=== PATIENT | female | born 1980 | race Hispanic/Latino ===

== ENCOUNTER 2017-02-08 20:40 | Emergency (ER) | payer SELFPAY ==
[2017-02-09] MEDS ORDERED: LIDOCAINE VISCOUS 2% PO ONE (00:28)
--- NOTE | 2017-02-09 00:32 | Emergency Department Report ---
HPI - General Chief Complaint: Sore Throat Time Seen by Provider: 02/08/17 22:37 - HPI HPI: 37-year-old female presents today with sore throat, right ear pain, productive cough with green mucus 3 days. Denies sick contacts. He tried albuterol and Benadryl without relief. Denies fever, chills, nausea, vomiting, chest pain, shortness of breath, abdominal pain. Patient has past medical history of asthma and bronchitis. ED Past Medical Hx - Past Medical History Hx Seizures: Yes Hx Asthma: Yes Additional medical history: Pancreatitis, cyst on right ovary, Vaginal delivery x 2 - Surgical History Additional Surgical History: tubaligation - Social History Smoking Status: Current Every Day Smoker Substance Use Type: None - Medications Home Medications: Home Medications Medication Instructions Recorded Confirmed Last Taken Type Gabapentin [Neurontin] 800 mg PO Q8H 05/04/15 09/05/15 05/04/15 History predniSONE [Deltasone] 20 mg PO QDAY #5 tab 09/05/15 Unknown Rx ALBUTEROL Inhaler [ProAir HFA 2 puff IH QID PRN #1 inha 02/09/17 Unknown Rx Inhaler] Azithromycin [Zithromax TAB] 500 mg PO QDAY #5 tablet 02/09/17 Unknown Rx Lidocaine Viscous 2% 15 ml MM TID #100 ml 02/09/17 Unknown Rx Promethazine /Codeine 5 ml PO Q6H PRN #120 ml 02/09/17 Unknown Rx [Phenergan/Codeine 6.25-10 mg/5 ml] ED Review of Systems ROS: Stated complaint: SORE THROAT /FLU SYMPTOMS Other details as noted in HPI Constitutional: denies: chills, fever, malaise Eyes: denies: eye pain ENT: ear pain, throat pain, congestion Respiratory: cough. denies: shortness of breath, wheezing Cardiovascular: denies: chest pain, palpitations Endocrine: no symptoms reported Gastrointestinal: denies: abdominal pain, nausea, vomiting Neurological: denies: headache, weakness, numbness, paresthesias Physical Exam - Physical Exam Vital Signs: Vital Signs 02/08/17 21:02 Temperature 98.6 F Pulse Rate 98 H Respiratory 18 Rate Blood Pressure 131/88 O2 Sat by Pulse 98 Oximetry Physical Exam: GENERAL: The patient is well-developed and well-nourished. Patient is in NAD. HEAD: Normocephalic. Atraumatic. EYES: PERRL. EARS: External auditory canals and tympanic membranes clear; hearing grossly intact. NOSE: Normal nasal mucosa with no nasal discharge. THROAT: Positive for erythema and tonsillomegaly. No tonsillar exudates noted. NECK: Positive for right-sided anterior cervical lymphadenopathy. CHEST/LUNGS: Clear to auscultation throughout. HEART/CARDIOVASCULAR: Regular rate and rhythm. No murmurs, rubs or gallops. ABDOMEN: Abdomen is soft, nontender. Bowel sounds normoactive. No guarding or rebound tenderness. EXTREMITIES: Peripheral pulses intact. Capillary refill less than 2 seconds. NEURO: Alert and oriented x 3. Normal gait. ED Course Vital Signs 02/08/17 21:02 Temperature 98.6 F Pulse Rate 98 H Respiratory 18 Rate Blood Pressure 131/88 O2 Sat by Pulse 98 Oximetry ED Medical Decision Making - Lab Data Vital Signs 02/08/17 21:02 Temperature 98.6 F Pulse Rate 98 H Respiratory 18 Rate Blood Pressure 131/88 O2 Sat by Pulse 98 Oximetry - Medical Decision Making 37-year-old female presents today with sore throat, productive cough 3 days. Her rapid strep test is negative. Patient is in no acute distress at this time. She will be discharged home and is encouraged to follow up with a primary care provider. She will be sent home on Z-Isaiah, promethazine/codeine, albuterol inhaler, viscous lidocaine and is encouraged to return to the emergency room for any worsening symptoms. Critical care attestation.: If time is entered above; I have spent that time in minutes in the direct care of this critically ill patient, excluding procedure time. ED Disposition Clinical Impression: Bronchitis Pharyngitis Qualifiers: Pharyngitis/tonsillitis etiology: unspecified etiology Qualified Code(s): J02.9 - Acute pharyngitis, unspecified Disposition: DISCHARGED TO HOME OR SELFCARE Is pt being admited?: No Does the pt Need Aspirin: No Condition: Stable Instructions: Acute Bronchitis (ED), Pharyngitis (ED) Additional Instructions: Follow-up with primary care provider. Return to the emergency department if symptoms worsen. Prescriptions: ALBUTEROL Inhaler [ProAir HFA Inhaler] 2 puff IH QID PRN #1 inha PRN Reason: Shortness Of Breath Azithromycin [Zithromax TAB] 500 mg PO QDAY #5 tablet Lidocaine Viscous 2% 15 ml MM TID #100 ml Promethazine /Codeine [Phenergan/Codeine 6.25-10 mg/5 ml] 5 ml PO Q6H PRN #120 ml PRN Reason: cough Referrals: PRIMARY CARE, [Primary Care Provider] - 3-5 Days [facility] [Outside] - 3-5 Days Forms: Work/School Release Form(ED), Accompanied Note Time of Disposition: 00:31
[2017-02-09 01:33] VITALS: BP 151/89
== END 2017-02-09 01:20 | disposition home or self-care (01) ==
LOC: ED 20:40
DX: J02.9 Acute pharyngitis, unspecified (principal); J40 Bronchitis, not specified as acute or chronic; J45.909 Unspecified asthma, uncomplicated; F17.200 Nicotine dependence, unspecified, uncomplicated
CPT/HCPCS: 87116; 87430; 99282

== ENCOUNTER 2017-03-09 23:57 | Emergency (ER) | payer SELFPAY ==
[2017-03-10 00:18] VITALS: BP 139/90
[2017-03-10] MEDS ORDERED: XYLOCAINE 1% MPF 5 mL INFILTRATI ONE (01:51)
[2017-03-10] MEDS ORDERED: NORCO 5/325 PO ONE (01:51)
[2017-03-10] MEDS ORDERED: ROCEPHIN IM ONE (01:51)
[2017-03-10] MEDS ORDERED: DECADRON IM ONE (01:51)
--- NOTE | 2017-03-10 02:28 | Emergency Department Report ---
ED ENT HPI - General Chief complaint: Sore Throat Stated complaint: SORE THROAT, VOMITING,DIARRHEA Time Seen by Provider: 03/10/17 01:43 Source: patient Mode of arrival: Ambulatory Limitations: No Limitations - History of Present Illness Initial comments: Patient comes into the ER today with complaints of throat pain for the past month. Patient states that she was seen here at the end of last month and was prescribed some Zithromax. Patient states she might have had one to 2 days of improvements but has not been any better since. Patient denies any fever, chills, body aches. Patient states that most the pain is on the left side of her throat and it is causing her ear and side of head to hurt now. MD complaint: sore throat - Related Data Home Medications Medication Instructions Recorded Confirmed Last Taken Gabapentin [Neurontin] 800 mg PO Q8H 05/04/15 03/10/17 1 Day Ago Previous Rx's Medication Instructions Recorded Last Taken Type Amoxicillin 1,000 mg PO BID #40 capsule 03/10/17 Unknown Rx traMADol [Ultram 50 MG tab] 50 mg PO Q4HR PRN #30 tablet 03/10/17 Unknown Rx Allergies Allergy/AdvReac Type Severity Reaction Status Date / Time ketorolac tromethamine Allergy Rash Verified 09/05/15 13:30 [From Toradol] ED Dental HPI - General Chief complaint: Sore Throat Stated complaint: SORE THROAT, VOMITING,DIARRHEA Time Seen by Provider: 03/10/17 01:43 Source: patient Mode of arrival: Ambulatory Limitations: No Limitations - Related Data Home Medications Medication Instructions Recorded Confirmed Last Taken Gabapentin [Neurontin] 800 mg PO Q8H 05/04/15 03/10/17 1 Day Ago Previous Rx's Medication Instructions Recorded Last Taken Type Amoxicillin 1,000 mg PO BID #40 capsule 03/10/17 Unknown Rx traMADol [Ultram 50 MG tab] 50 mg PO Q4HR PRN #30 tablet 03/10/17 Unknown Rx Allergies Allergy/AdvReac Type Severity Reaction Status Date / Time ketorolac tromethamine Allergy Rash Verified 09/05/15 13:30 [From Toradol] ED Review of Systems ROS: Stated complaint: SORE THROAT, VOMITING,DIARRHEA Other details as noted in HPI Constitutional: denies: chills, fever Eyes: denies: eye pain, eye discharge, vision change ENT: ear pain, throat pain, congestion. denies: dental pain Respiratory: denies: cough, shortness of breath, wheezing Cardiovascular: denies: chest pain, palpitations Endocrine: no symptoms reported Gastrointestinal: denies: abdominal pain, nausea, diarrhea Genitourinary: denies: urgency, dysuria, discharge Musculoskeletal: denies: back pain, joint swelling, arthralgia Skin: denies: rash, lesions Neurological: denies: headache, weakness, paresthesias Psychiatric: denies: anxiety, depression Hematological/Lymphatic: denies: easy bleeding, easy bruising ED Past Medical Hx - Past Medical History Hx Seizures: Yes Hx Asthma: Yes Additional medical history: Pancreatitis, cyst on right ovary, Vaginal delivery x 2 - Surgical History Additional Surgical History: tubaligation - Social History Smoking Status: Current Every Day Smoker Substance Use Type: None - Medications Home Medications: Home Medications Medication Instructions Recorded Confirmed Last Taken Type Gabapentin [Neurontin] 800 mg PO Q8H 05/04/15 03/10/17 1 Day Ago History Amoxicillin 1,000 mg PO BID #40 capsule 03/10/17 Unknown Rx traMADol [Ultram 50 MG tab] 50 mg PO Q4HR PRN #30 tablet 03/10/17 Unknown Rx ED Physical Exam - General Limitations: No Limitations General appearance: alert, in no apparent distress - Head Head exam: Present: atraumatic, normocephalic - Eye Eye exam: Present: normal appearance, PERRL - ENT ENT exam: Present: mucous membranes dry, mucous membranes moist, TM's normal bilaterally, normal external ear exam, other (mildly swollen left tonsil with minimal bilateral tonsillar erythematous. Definitely no visible abscess appreciated. Bilateral nasal mucosal swelling and redness. Left maxillary sinus tenderness on percussion.) - Neck Neck exam: Present: normal inspection - Respiratory Respiratory exam: Present: normal lung sounds bilaterally. Absent: respiratory distress - Cardiovascular Cardiovascular Exam: Present: regular rate, normal rhythm. Absent: systolic murmur, diastolic murmur, rubs, gallop - GI/Abdominal GI/Abdominal exam: Present: soft, normal bowel sounds - Extremities Exam Extremities exam: Present: normal inspection - Back Exam Back exam: Present: normal inspection - Neurological Exam Neurological exam: Present: alert, oriented X3 - Psychiatric Psychiatric exam: Present: normal affect, normal mood - Skin Skin exam: Present: warm, dry, intact, normal color. Absent: rash ED Course Vital Signs 03/10/17 00:05 Temperature 98.5 F Pulse Rate 102 H Respiratory 20 Rate Blood Pressure 139/90 O2 Sat by Pulse 98 Oximetry ED Medical Decision Making - Medical Decision Making Patient is nontoxic and hemodynamically stable. Previous records reviewed prior to examination of patient. I informed patient that she does not have any drainable abscess noted on exam. I suspect that may be her lack of improvement is secondary to antibiotic resistance. Patient was given intramuscular Rocephin 1 g and Decadron 10 mg here in the ER. I will discharge patient on penicillin based antibiotics and refer her to ENT if symptoms don't resolve or worsen. Patient is stable for discharge and is agreement with treatment plan. Critical care attestation.: If time is entered above; I have spent that time in minutes in the direct care of this critically ill patient, excluding procedure time. ED Disposition Clinical Impression: Pharyngitis, Sinusitis Disposition: DISCHARGED TO HOME OR SELFCARE Is pt being admited?: No Does the pt Need Aspirin: No Condition: Stable Instructions: Tonsillitis (ED), Sinusitis (ED) Prescriptions: Amoxicillin 1,000 mg PO BID #40 capsule traMADol [Ultram 50 MG tab] 50 mg PO Q4HR PRN #30 tablet PRN Reason: Pain Referrals: PRIMARY CARE, [Primary Care Provider] - 3-5 Days JARED THORNTON MD [Staff Physician] - 3-5 Days Time of Disposition: 02:30
== END 2017-03-10 02:42 | disposition home or self-care (01) ==
LOC: ED 23:57
DX: J02.9 Acute pharyngitis, unspecified (principal); J32.9 Chronic sinusitis, unspecified; R56.9 Unspecified convulsions; J45.909 Unspecified asthma, uncomplicated; F17.200 Nicotine dependence, unspecified, uncomplicated; Z98.51 Tubal ligation status; Z88.6 Allergy status to analgesic agent
CPT/HCPCS: 96372; 99282; J0696; J1100

== ENCOUNTER 2017-05-07 21:09 | Emergency (ER) | payer SELFPAY ==
[2017-05-07 21:31] VITALS: BP 151/97
== END 2017-05-08 00:35 | disposition left against medical advice (07) ==
LOC: ED 21:09
DX: K04.7 Periapical abscess without sinus (principal); Z53.21 Procedure and treatment not carried out due to patient leaving prior to being seen by health care provider

== ENCOUNTER 2017-05-08 12:35 | Emergency (ER) | payer SELFPAY ==
[2017-05-08 13:12] VITALS: BP 129/91
[2017-05-08] MEDS ORDERED: CLEOCIN PO ONE (14:43)
[2017-05-08] MEDS ORDERED: NORCO 7.5/325 PO ONE (14:43)
[2017-05-08] MEDS ORDERED: TRIMOX PO ONE (14:44)
--- NOTE | 2017-05-08 15:48 | Emergency Department Report ---
HPI - General Chief Complaint: Dental/Oral Time Seen by Provider: 05/08/17 14:14 - HPI HPI: The patient is a 37-year-old female presents for evaluation of tooth and mouth pain. The patient reports recurrence of right lower tooth and mouth pain for the past 3 days, constant since onset, 10/10 in severity, throbbing quality, exacerbated with chewing. She states that she has experienced similar symptoms multiple times in the past 2-3 years secondary to tooth infections. She admits to long-standing history of dental caries, poor dentition, and needing a tooth pulled. She has not seen a dentist despite this occur multiple times. She denies trauma or injury to the head, headache, throat pain, neck pain or stiffness, difficulty swallowing, dysphagia, hoarseness of voice, stridor, dyspnea. ED Past Medical Hx - Past Medical History Previous Medical History?: Yes Hx Seizures: Yes Hx Asthma: Yes Additional medical history: Pancreatitis, cyst on right ovary, Vaginal delivery x 2 - Surgical History Past Surgical History?: Yes Additional Surgical History: tubaligation - Social History Smoking Status: Current Every Day Smoker Substance Use Type: Alcohol, Non Opiate Pain, Other - Medications Home Medications: Home Medications Medication Instructions Recorded Confirmed Last Taken Type Gabapentin [Neurontin] 800 mg PO Q8H 05/04/15 03/10/17 1 Day Ago History Amoxicillin 1,000 mg PO BID #40 capsule 03/10/17 Unknown Rx traMADol [Ultram 50 MG tab] 50 mg PO Q4HR PRN #30 tablet 03/10/17 Unknown Rx Amoxicillin/K Clav Tab [Augmentin 1 tab PO Q12HR #20 tab 05/08/17 Unknown Rx 875 mg] Chlorhexidine Mouthwash [Peridex] 15 ml MM BID #1 bottle 05/08/17 Unknown Rx Clindamycin [Clindamycin CAP] 300 mg PO TID #40 capsule 05/08/17 Unknown Rx HYDROcodone/APAP 7.5-325 [[place] 1 each PO Q8HR PRN #14 tablet 05/08/17 Unknown Rx 7.5/325] ED Review of Systems ROS: Stated complaint: MOUTH PAIN Other details as noted in HPI Constitutional: denies: fever ENT: denies: throat or neck pain Respiratory: denies: cough, shortness of breath Cardiovascular: denies: chest pain Endocrine: denies unexplained weight loss or gain Gastrointestinal: denies: abdominal pain, nausea Genitourinary: denies: dysuria Musculoskeletal: denies: leg swelling Skin: denies: rash Neurological: denies: headache Hematological/Lymphatic: denies: easy bleeding or easy bruising Psych: denies sadness or hopelessness Physical Exam - Physical Exam Vital Signs: Vital Signs 05/08/17 13:07 Temperature 98.6 F Pulse Rate 115 H Respiratory 22 Rate Blood Pressure 129/91 O2 Sat by Pulse 100 Oximetry Physical Exam: General: well-nourished, well-developed, no acute distress Head: Normocephalic, atraumatic Eyes: normal sclera HEENT: no facial swelling at this time, dental caries present throughout the mouth, gingival erythema present adjacent to right lower premolar, no fluctuance or abscess at this time, mucous membranes pale and dry Neck: trachea midline, neck supple, No neck stiffness, no cervical adenopathy Respiratory: Breath sounds equal bilaterally, no wheezing, rales, or rhonchi Cardio: S1 and S2 present, no murmurs, rubs, gallops, capillary refill is delayed Abdomen: Normoactive bowel sounds, soft abdomen, no rigidity, no guarding or rebound tenderness Chest WALL/Back: No tenderness to palpation of the chest wall, no CVA tenderness with percussion Musc: No pitting edema Skin: No rash Neuro: no facial drooping, normal speech Psych: Normal affect ED Course Vital Signs 05/08/17 13:07 Temperature 98.6 F Pulse Rate 115 H Respiratory 22 Rate Blood Pressure 129/91 O2 Sat by Pulse 100 Oximetry ED Medical Decision Making - Medical Decision Making Exam findings are consistent with acute gingival infection, no pocket of drainable dental abscess appreciable at this time. Exam findings consistent with dehydration and likely cause of tachycardia. Patient declines IV fluids for treatment of her dehydration. The patient is given by mouth [place] for pain and amoxicillin and clindamycin for treatment of gingival infection. The patient was reevaluated and reported that their symptoms were markedly improved. The patient is stable for discharge with outpatient follow-up. The patient is given follow-up and return instructions, including to follow with a dentist and oral maxillofacial surgery within the next 48 hours. The patient expressed understanding and agreed with the plan. The patient is discharged in stable condition. Critical care attestation.: If time is entered above; I have spent that time in minutes in the direct care of this critically ill patient, excluding procedure time. ED Disposition Clinical Impression: Cellulitis of gingiva, Dental caries, Tooth pain, Dehydration Disposition: TO HOME OR SELFCARE Is pt being admited?: No Does the pt Need Aspirin: No Condition: Stable Instructions: Cellulitis (ED), Toothache (ED), Dental Caries (ED) Prescriptions: Amoxicillin/K Clav Tab [Augmentin 875 mg] 1 tab PO Q12HR #20 tab Chlorhexidine Mouthwash [Peridex] 15 ml MM BID #1 bottle Clindamycin [Clindamycin CAP] 300 mg PO TID #40 capsule HYDROcodone/APAP 7.5-325 [[place] 7.5/325] 1 each PO Q8HR PRN #14 tablet PRN Reason: Pain Referrals: [facility] [Referring] - 3-5 Days WILMER AKERS DDS [Staff Physician] - 3-5 Days [facility] [Outside] - 3-5 Days [facility] [Outside] - 3-5 Days Time of Disposition: 15:45
== END 2017-05-08 16:01 | disposition home or self-care (01) ==
LOC: ED 12:35
DX: K12.2 Cellulitis and abscess of mouth (principal); K02.9 Dental caries, unspecified; E86.0 Dehydration; J45.909 Unspecified asthma, uncomplicated; F17.210 Nicotine dependence, cigarettes, uncomplicated
CPT/HCPCS: 99282

== ENCOUNTER 2017-06-04 07:50 | Emergency (ER) | payer OTHER ==
[2017-06-04 07:57] VITALS: BP 130/88
[2017-06-04] MEDS ORDERED: PERCOCET 5/325 PO ONE (08:18)
--- NOTE | 2017-06-04 08:18 | Emergency Department Report ---
ED General Adult HPI - General Chief complaint: Back Pain/Injury Stated complaint: BACK/LEFT FOOT PAIN Time Seen by Provider: 06/04/17 08:02 Source: patient, family Mode of arrival: Ambulatory Limitations: No Limitations - History of Present Illness Initial comments: Patient here complaining of back pain and left foot and ankle pain after he lifted then heavy refrigerator and dropped the refrigerator. She says she twisted her left ankle and now with swollen and pain to back and ankle is 9 out of 10 and aching. Denies any loss of bowel or bladder function, denies any nausea or vomiting. Denies any numbness certainly to extremities. Denies falling or denies any blunt object falling on her. She took Tylenol at home but it didn't help. It is worse with movement better with rest. MD Complaint: back and foot pain Onset/Timin -: days(s) Location: back, left, lower extremity Radiation: non-radiation Severity scale (0 -10): 9 Quality: aching Consistency: constant Improves with: immobilization, rest Worsens with: immobilization, movement Associated Symptoms: denies: confusion, chest pain, cough, diaphoresis, fever/ chills, headaches, loss of appetite, malaise, nausea/vomiting, rash, seizure, shortness of breath, syncope, weakness Treatments Prior to Arrival: other (tylenol) - Related Data Home Medications Medication Instructions Recorded Confirmed Last Taken Gabapentin [Neurontin] 800 mg PO Q8H 05/04/15 03/10/17 1 Day Ago Previous Rx's Medication Instructions Recorded Last Taken Type Amoxicillin 1,000 mg PO BID #40 capsule 03/10/17 Unknown Rx traMADol [Ultram 50 MG tab] 50 mg PO Q4HR PRN #30 tablet 03/10/17 Unknown Rx Amoxicillin/K Clav Tab [Augmentin 1 tab PO Q12HR #20 tab 05/08/17 Unknown Rx 875 mg] Chlorhexidine Mouthwash [Peridex] 15 ml MM BID #1 bottle 05/08/17 Unknown Rx Clindamycin [Clindamycin CAP] 300 mg PO TID #40 capsule 05/08/17 Unknown Rx HYDROcodone/APAP 7.5-325 [[place] 1 each PO Q8HR PRN #14 tablet 05/08/17 Unknown Rx 7.5/325] Acetaminophen/Codeine [Tylenol 1 tab PO Q6H PRN #12 tab 08/15/17 Unknown Rx /Codeine # 3 tab] Cyclobenzaprine [Flexeril] 10 mg PO TID PRN #15 tablet 06/04/17 Unknown Rx Allergies Allergy/AdvReac Type Severity Reaction Status Date / Time ketorolac tromethamine Allergy Rash Verified 09/05/15 13:30 [From Toradol] ED Review of Systems ROS: Stated complaint: BACK/LEFT FOOT PAIN Other details as noted in HPI Comment: All other systems reviewed and negative Constitutional: denies: chills, fever Eyes: denies: vision change Respiratory: no symptoms reported Cardiovascular: denies: chest pain, palpitations, edema, syncope Gastrointestinal: denies: abdominal pain, nausea, vomiting, diarrhea, constipation Genitourinary: denies: urgency, dysuria, frequency, hematuria, discharge Musculoskeletal: back pain, joint swelling, arthralgia. denies: myalgia Skin: denies: rash Neurological: abnormal gait (due to left foot pain and swelling). denies: headache, weakness, numbness, paresthesias, confusion ED Past Medical Hx - Past Medical History Previous Medical History?: Yes Hx Seizures: Yes Hx Asthma: Yes Additional medical history: Pancreatitis, cyst on right ovary, Vaginal delivery x 2 - Surgical History Past Surgical History?: Yes Additional Surgical History: tubaligation - Family History Family history: hypertension - Social History Smoking Status: Current Every Day Smoker Substance Use Type: Alcohol, Non Opiate Pain Other Social History: Patient is - Medications Home Medications: Home Medications Medication Instructions Recorded Confirmed Last Taken Type Gabapentin [Neurontin] 800 mg PO Q8H 05/04/15 03/10/17 1 Day Ago History Amoxicillin 1,000 mg PO BID #40 capsule 03/10/17 Unknown Rx traMADol [Ultram 50 MG tab] 50 mg PO Q4HR PRN #30 tablet 03/10/17 Unknown Rx Amoxicillin/K Clav Tab [Augmentin 1 tab PO Q12HR #20 tab 05/08/17 Unknown Rx 875 mg] Chlorhexidine Mouthwash [Peridex] 15 ml MM BID #1 bottle 05/08/17 Unknown Rx Clindamycin [Clindamycin CAP] 300 mg PO TID #40 capsule 05/08/17 Unknown Rx HYDROcodone/APAP 7.5-325 [[place] 1 each PO Q8HR PRN #14 tablet 05/08/17 Unknown Rx 7.5/325] Acetaminophen/Codeine [Tylenol 1 tab PO Q6H PRN #12 tab 06/04/17 Unknown Rx /Codeine # 3 tab] Cyclobenzaprine [Flexeril] 10 mg PO TID PRN #15 tablet 06/04/17 Unknown Rx ED Physical Exam - General Limitations: No Limitations General appearance: alert, in no apparent distress - Head Head exam: Present: atraumatic, normocephalic, normal inspection - Eye Eye exam: Present: normal appearance, PERRL, EOMI. Absent: nystagmus, periorbital swelling, periorbital tenderness Pupils: Present: normal accommodation - ENT ENT exam: Present: normal exam, normal orophraynx, mucous membranes moist - Neck Neck exam: Present: normal inspection, full ROM. Absent: tenderness, meningismus, lymphadenopathy - Expanded Neck Exam Expanded Neck exam: Absent: tenderness, midline deformity, anterior neck swelling, tracheal deviation - Respiratory Respiratory exam: Present: normal lung sounds bilaterally. Absent: respiratory distress, chest wall tenderness - Cardiovascular Cardiovascular Exam: Present: regular rate, normal rhythm, normal heart sounds - GI/Abdominal GI/Abdominal exam: Present: soft, normal bowel sounds. Absent: distended, tenderness, guarding, rebound, rigid - Extremities Exam Extremities exam: Present: tenderness, normal capillary refill, joint swelling, other (other lower extremity without any clubbing or cyanosis. Left ankle swollen and painful with movement. +2 pedal pulses. No neurovascular compromise bilaterally). Absent: pedal edema, calf tenderness - Expanded Lower Extremity Exam Left Hip exam: Present: normal inspection, full ROM. Absent: tenderness, swelling, abrasion, laceration, ecchymosis, deformity, crepidus, dislocation, erythema, external rotation, internal rotation, shortening, pelvic stability Upper Leg exam: Present: normal inspection, full ROM. Absent: tenderness, swelling, abrasion, laceration, ecchymosis, deformity, crepidus, dislocation, erythema Knee exam: Present: normal inspection, full ROM, full knee extension. Absent: tenderness, swelling, abrasion, laceration, ecchymosis, deformity, crepidus, dislocation, erythema, effusion, pain w/ pronation/supination, posterior draw sign Lower Leg exam: Present: normal inspection, full ROM. Absent: tenderness, swelling, abrasion, laceration, ecchymosis, deformity, crepidus, dislocation, erythema, palpable cord, Elise's sign Ankle exam: Present: normal inspection (left ankle swollen and tender to palpate ). Absent: tenderness, swelling, abrasion, laceration, ecchymosis, deformity, crepidus, dislocation, erythema Foot/Toe exam: Present: full ROM (Full ROM Pt able to plantar llex/plantar flex with minimal pain. ), tenderness (Tenderness to left lateral foot), swelling ( swelling to left lateral foot). Absent: normal inspection, abrasion, laceration , ecchymosis, deformity, crepidus, dislocation, erythema, amputation, puncture wound, foreign body, calcaneal tenderness, tenderness at base of 5th metatarsal , nail avulsion, subungual hematoma Neuro vascular tendon exam: Present: no vascular compromise. Absent: pulse deficit, abnormal cap refill, motor deficit, sensory deficit, tendon deficit, extremity cold to touch, pallor, abnormal 2-point discrimination, decreased fine /light touch, foot drop, peroneal nerve deficit, significant pain with passive ROM of distal joint Gait: Positive: observed and limited by pain - Back Exam Back exam: Present: normal inspection, full ROM, tenderness (T and L-spine), vertebral tenderness (positive for febrile tenderness to T-spine and L-spine.). Absent: CVA tenderness (L), muscle spasm, paraspinal tenderness, rash noted - Expanded Back Exam Expanded Back exam: Absent: saddle anesthesia Back exam: Negative Straight Leg Raising: Left, Right - Neurological Exam Neurological exam: Present: alert, oriented X3, abnormal gait (the left lower extremity due to injury), reflexes normal - Expanded Neurological Exam Expanded Neurological exam: Absent: innattentive, memory loss-remote event, memory loss- recent event, ataxia, receptive aphasia, expressive aphasia, total aphasia, tremor, protecting the airway Patient oriented to: Present: person, place, time Speech: Present: fluid speech Cranial nerves: EOM's Intact: Normal, Gag Reflex: Normal, Tongue Deviation: Normal, Nystagmus: Normal, Facial Sensation: Normal Cerebellar function: Romberg: Normal Upper motor neuron: Pronator Drift: Normal, Sensory Extinction: Normal Sensory exam: Upper Extremity Light Touch: Normal, Upper Extremity Temperature: Normal, UE 2 Point Discrimination: Normal, Lower Extremity Light Touch: Normal, Lower Extremity Temperature: Normal, LE 2 Point Discrimination: Normal Motor strength exam: RUE: 5, LUE: 5, RLE: 5, LLE: 5 DTR: bicep (R): 2+, bicep (L): 2+, tricep (R): 2+, tricep (L): 2+, knee (R): 2+ , knee (L): 2+, ankle (R): 2+, ankle (L): 2+ Best Eye Response ([place]): (4) open spontaneously Best Motor Response (Khadar): (6) obeys commands Best Verbal Response (Khadar): (5) oriented Khadar Total: 15 - Psychiatric Psychiatric exam: Present: normal affect, normal mood - Skin Skin exam: Present: warm, dry, intact, normal color. Absent: rash ED Course Vital Signs 06/04/17 06/04/17 07:53 09:32 Temperature 97.9 F Pulse Rate 103 H Respiratory 16 20 Rate Blood Pressure 130/88 O2 Sat by Pulse 99 Oximetry - Reevaluation(s) Reevaluation #1: 06/04/17 11:47 Given Percocet 5/325 mg po in ed with relief of pain 06/04/17 11:47 - Orthopedic Splinting/Casting Injury #1 Side: left Lower Extremity Injury Location: foot Lower Extremity Immobilizer: Keith wrap Additional Comments: Neurovascular intact ED Medical Decision Making - Radiology Data Radiology results: report reviewed Aray lumbar and thoracic spine with normal studies Xray Left foot with soft tissue swelling no FX or dislocation - Medical Decision Making ED course:Pt here complaining of lower back pain and left foot pain after trying to lifting heavy refrigerator dropped. X-ray of the foot revealed soft tissue swelling but no fracture or dislocation x-ray of the thoracic and lumbar spine revealed no abnormality. Given Percocet 5/325 2 tablets emergency room for pain which relieved her pain. I discussed the patient x-ray findings, diagnosis and treatment plan and she voiced understanding. Discharged home with her family no acute distress. Diagnostics: See radiology section for x-ray report. Assessment/plan 1. Left foot sprain 2. Lower back pain 3. Back muscle strain 4. Arthralgia left foot PT discharged home with Keith wrap to left foot and instructed to rest, ice, compress and elevate affected area for 72 hours and to follow-up with orthopedic doctor as instructed. Prescription given for Tylenol No. 3 and Flexeril. Discharged home in stable condition with her family members Critical care attestation.: If time is entered above; I have spent that time in minutes in the direct care of this critically ill patient, excluding procedure time. ED Disposition Clinical Impression: Arthralgia of left foot, Thoracolumbar back pain Sprain of left foot Qualifiers: Encounter type: initial encounter Qualified Code(s): S93.602A - Unspecified sprain of left foot, initial encounter Back strain Qualifiers: Encounter type: initial encounter Qualified Code(s): S39.012A - Strain of muscle, fascia and tendon of lower back, initial encounter Disposition: TO HOME OR SELFCARE Is pt being admited?: No Does the pt Need Aspirin: No Condition: Stable Instructions: Muscle Strain (ED), Arthralgia (ED), Back Pain (ED), RICE Therapy (ED) Additional Instructions: Follow up with orthopedic doctor in [address] or operate heavy machinary while taking tylenol # 3 and flexeril Rest, Ice, Compress and elevate affected area Prescriptions: Acetaminophen/Codeine [Tylenol /Codeine # 3 tab] 1 tab PO Q6H PRN #12 tab PRN Reason: Pain Cyclobenzaprine [Flexeril] 10 mg PO TID PRN #15 tablet PRN Reason: Muscle Spasm Referrals: MAMADOU ADAMS MD [Staff Physician] - 2-3 Days PRIMARY CARE, [Primary Care Provider] - 2-3 Days Forms: Work/School Release Form(ED)
--- NOTE | 2017-06-04 09:47 | XRay Report ---
LEFT FOOT, 3 views: History: Left foot pain and swelling. The bony architecture is intact. Bony alignment is normal. The joint spaces appear preserved. There is mild nonspecific soft tissue swelling of the distal foot. IMPRESSION: Mild soft tissue swelling. No acute osseous injury identified.
--- NOTE | 2017-06-04 09:47 | XRay Report ---
LUMBOSACRAL SPINE, 3 VIEWS: History: Back pain, injury Findings: The vertebral bodies, disk spaces and posterior elements are intact. No compression deformity or malalignment. The SI joints are symmetric and unremarkable. Impression: 1. No evidence for acute injury to the lumbar spine.
--- NOTE | 2017-06-04 09:48 | XRay Report ---
THORACIC SPINE: History: Back pain, injury. The bones are normally mineralized with well preserved vertebral height, alignment and interspace distances. No paraspinal soft tissue widening is noted. IMPRESSION: Normal study.
== END 2017-06-04 12:10 | disposition home or self-care (01) ==
LOC: ED 07:50
DX: S93.602A Unspecified sprain of left foot, initial encounter (principal); S39.012A Strain of muscle, fascia and tendon of lower back, initial encounter; M54.5 Low back pain; J45.909 Unspecified asthma, uncomplicated; R56.9 Unspecified convulsions; F17.200 Nicotine dependence, unspecified, uncomplicated; W31.89XA Contact with other specified machinery, initial encounter; Y93.89 Activity, other specified; Y99.8 Other external cause status; Y92.89 Other specified places as the place of occurrence of the external cause; Z88.8 Allergy status to other drugs, medicaments and biological substances
CPT/HCPCS: 72072; 72100; 99283

== ENCOUNTER 2018-12-31 06:14 | Emergency (ER) | payer SELFPAY ==
[2018-12-31 06:20] VITALS: BP 114/75
[2018-12-31 06:52] LABS: Basophils % (Auto) 0.2 % (0.0-1.8); Eosinophils # (Auto) 0.3 K/mm3 (0.0-0.4); Hematocrit 43.1 % (30.3-42.9); Hemoglobin 14.6 gm/dl (10.1-14.3); Lymphocytes # (Auto) 2.5 K/mm3 (1.2-5.4); Lymphocytes % (Auto) 18.5 % (13.4-35.0); Mean Corpuscular HGB Conc 34 % (30-34); Mean Corpuscular Volume 97 fl (79-97); Monocytes # (Auto) 0.8 K/mm3 (0.0-0.8); Monocytes % (Auto) 6.3 % (0.0-7.3); Platelet Count 220 K/mm3 (140-440); Red Blood Count 4.45 M/mm3 (3.65-5.03); Red Cell Distribution Width 13.9 % (13.2-15.2)
[2018-12-31 07:02] LABS: BUN/Creatinine Ratio 21; Blood Urea Nitrogen 15 mg/dL (7-17); Calcium 9.1 mg/dL (8.4-10.2); Hemolysis Index 3
[2018-12-31] MEDS ORDERED: NACL 0.9% 1000 ML 1,000 ML IV ONE (07:12)
[2018-12-31] MEDS ORDERED: DUONEB *Not for PRN Use IH ONE (07:20)
[2018-12-31] MEDS ORDERED: DECADRON IV ONE (07:20)
--- NOTE | 2018-12-31 07:40 | Emergency Department Report ---
ED Dizziness HPI - General Chief Complaint: Dizziness Stated Complaint: CAROLYNE/LIGHTHEADED Time Seen by Provider: 12/31/18 07:06 Source: patient Mode of arrival: Ambulatory Limitations: No Limitations - History of Present Illness Initial Comments: This is a 38-year-old female nontoxic, well nourished in appearance, no acute signs of distress presents to the ED with c/o of dizziness, lightheadness, and shortness of breathe x1 day. Patient denies any chest pain or pressure. Patient denies any upper respiratory symptoms. Patient denies any head trauma. Stated symptoms are worse with moving and when sitting/walking. Patient denies any hemoptysis, fever, chills, nausea, vomiting, headache, stiff neck, numbness, tingling, abdominal pain. Patient denies pleuritic chest pain. Patient denies any recent travels or long car rides. Patient denies any recent surgeries or any sick contacts. Patient stated allergies to ketorolac tromethamine. PMH in cludes asthma. MD Complaint: dizziness, lightheadedness, other (shortness of breathe) -: Last night Description: sense of movement, lightheadedness History of Same: No History of Trauma: No Severity: mild Improves With: rest Worsens With: movement Associated Symptoms: shortness of breath. denies: ataxia, chest pain, confusion, cough, diaphoresis, fever/chills, loss of appetite, malaise, rash, seizure, syncope, weakness - Related Data Home Medications Medication Instructions Recorded Confirmed Last Taken Gabapentin [Neurontin] 800 mg PO Q8H 05/04/15 03/10/17 1 Day Ago ~03/09/17 Previous Rx's Medication Instructions Recorded Last Taken Type Amoxicillin 1,000 mg PO BID #40 capsule 03/10/17 Unknown Rx traMADol [Ultram 50 MG tab] 50 mg PO Q4HR PRN #30 tablet 03/10/17 Unknown Rx Amoxicillin/K Clav Tab [Augmentin 1 tab PO Q12HR #20 tab 05/08/17 Unknown Rx 875 mg] Chlorhexidine Mouthwash [Peridex] 15 ml MM BID #1 bottle 05/08/17 Unknown Rx Clindamycin [Clindamycin CAP] 300 mg PO TID #40 capsule 05/08/17 Unknown Rx HYDROcodone/APAP 7.5-325 [[place] 1 each PO Q8HR PRN #14 tablet 05/08/17 Unknown Rx 7.5/325] Acetaminophen/Codeine [Tylenol 1 tab PO Q6H PRN #12 tab 06/04/17 Unknown Rx /Codeine # 3 tab] Cyclobenzaprine [Flexeril] 10 mg PO TID PRN #15 tablet 06/04/17 Unknown Rx Acetaminophen [Tylenol Extra 1,000 mg PO Q6H #24 tablet 06/27/18 Unknown Rx Strength] Ondansetron [Zofran Odt] 4 mg PO Q8HR #9 tab.rapdis 06/27/18 Unknown Rx ALBUTEROL Inhaler(NF) [VENTOLIN 2 puff IH Q4-6H PRN #1 inha 12/31/18 Unknown Rx Inhaler(NF)] Sulfamethoxazole/Trimethoprim 1 each PO BID #14 tablet 12/31/18 Unknown Rx [Bactrim DS TAB] Allergies Allergy/AdvReac Type Severity Reaction Status Date / Time ketorolac tromethamine Allergy Rash Verified 09/05/15 13:30 [From Toradol] ED Review of Systems ROS: Stated complaint: CAR[place]/LIGHTHEADED Other details as noted in HPI Constitutional: denies: chills, fever Eyes: denies: eye pain, eye discharge, vision change ENT: denies: ear pain, throat pain Respiratory: shortness of breath. denies: cough, wheezing Cardiovascular: denies: chest pain, palpitations Endocrine: no symptoms reported Gastrointestinal: denies: abdominal pain, nausea, diarrhea Genitourinary: denies: urgency, dysuria, discharge Musculoskeletal: denies: back pain, joint swelling, arthralgia Skin: denies: rash, lesions Neurological: vertigo. denies: headache, weakness, paresthesias Psychiatric: denies: anxiety, depression Hematological/Lymphatic: denies: easy bleeding, easy bruising ED Past Medical Hx - Past Medical History Previous Medical History?: Yes Hx Seizures: Yes Hx Asthma: Yes Additional medical history: Pancreatitis, cyst on right ovary, Vaginal delivery x 2 - Surgical History Past Surgical History?: Yes Additional Surgical History: tubaligation - Social History Smoking Status: Current Every Day Smoker Substance Use Type: None - Medications Home Medications: Home Medications Medication Instructions Recorded Confirmed Last Taken Type Gabapentin [Neurontin] 800 mg PO Q8H 05/04/03/10/17 1 Day Ago History ~03/09/17 Amoxicillin 1,000 mg PO BID #40 capsule 03/10/17 Unknown Rx traMADol [Ultram 50 MG tab] 50 mg PO Q4HR PRN #30 tablet 03/10/17 Unknown Rx Amoxicillin/K Clav Tab [Augmentin 1 tab PO Q12HR #20 tab 05/08/17 Unknown Rx 875 mg] Chlorhexidine Mouthwash [Peridex] 15 ml MM BID #1 bottle 05/08/17 Unknown Rx Clindamycin [Clindamycin CAP] 300 mg PO TID #40 capsule 05/08/17 Unknown Rx HYDROcodone/APAP 7.5-325 [[place] 1 each PO Q8HR PRN #14 tablet 05/08/17 Unknown Rx 7.5/325] Acetaminophen/Codeine [Tylenol 1 tab PO Q6H PRN #12 tab 06/04/17 Unknown Rx /Codeine # 3 tab] Cyclobenzaprine [Flexeril] 10 mg PO TID PRN #15 tablet 06/04/17 Unknown Rx Acetaminophen [Tylenol Extra 1,000 mg PO Q6H #24 tablet 06/27/18 Unknown Rx Strength] Ondansetron [Zofran Odt] 4 mg PO Q8HR #9 tab.rapdis 06/27/18 Unknown Rx ALBUTEROL Inhaler(NF) [VENTOLIN 2 puff IH Q4-6H PRN #1 inha 12/31/18 Unknown Rx Inhaler(NF)] Sulfamethoxazole/Trimethoprim 1 each PO BID #14 tablet 12/31/18 Unknown Rx [Bactrim DS TAB] ED Physical Exam - General Limitations: No Limitations General appearance: alert, in no apparent distress - Head Head exam: Present: atraumatic, normocephalic - Eye Eye exam: Present: normal appearance, PERRL, EOMI - Neck Neck exam: Present: normal inspection, full ROM. Absent: tenderness, meningis mus, lymphadenopathy - Respiratory Respiratory exam: Present: normal lung sounds bilaterally, decreased breath sounds (mild). Absent: respiratory distress, wheezes, rales, rhonchi, stridor, chest wall tenderness, accessory muscle use, prolonged expiratory - Cardiovascular Cardiovascular Exam: Present: regular rate, normal rhythm, normal heart sounds. Absent: bradycardia, tachycardia, irregular rhythm, systolic murmur, diastolic murmur, rubs, gallop - Extremities Exam Extremities exam: Present: normal inspection, full ROM, normal capillary refill. Absent: tenderness - Back Exam Back exam: Present: normal inspection, full ROM. Absent: tenderness, CVA tenderness (R), CVA tenderness (L), muscle spasm, paraspinal tenderness, vertebral tenderness, rash noted - Neurological Exam Neurological exam: Present: alert, oriented X3, normal gait - Expanded Neurological Exam Expanded Patient oriented to: Present: person, place, time Motor strength exam: RUE: 5, LUE: 5, RLE: 5, LLE: 5 Best Eye Response ([place]): (4) open spontaneously Best Motor Response ([place]): (6) obeys commands Best Verbal Response ([place]had[place]): (5) oriented [place] Total: 15 - Psychiatric Psychiatric exam: Present: normal affect, normal mood - Skin Skin exam: Present: warm, dry, intact, normal color. Absent: rash ED Course Vital Signs 12/31/18 06:18 Temperature 98.3 F Pulse Rate 77 Respiratory 16 Rate Blood Pressure 114/75 O2 Sat by Pulse 100 Oximetry - Reevaluation(s) Reevaluation #1: 12/31/18 07:42 Patient is speaking in full sentences with no signs of distress noted. ED Medical Decision Making - Lab Data Result diagrams: 12/31/18 06:39 12/31/18 06:39 - Medical Decision Making This is a 38-year-old female that presents with shortness of breathe and di zziness. Patient is stable and was examined by me. KRISTEN and HEART score 0 pints. Wells criteria for DVT/SVT/PE 0 points. Negative d-dimmer. EKG normal sinus rhythm with no significant changes in ST. Chest xray dictated by the radiologist. PAtient is notified of the Xray report with no questions noted. Orthostatics WNL. Labs within normal limits. UA shows UTI. Negative troponin. Patient received 1L normal saline in the ED which she stated his symptoms are improving subsided. Patient also received breathing treatment and steroids and stated thst shortness of breathe has subsided. Patient was instructed to Follow- up with a primary care doctor in 3-5 days or if symptoms worsen and continue return to emergency room as soon as possible. At time of discharge, the patient does not seem toxic or ill in appearance. No acute signs of distress noted. Patient agrees to discharge treatment plan of care. No further questions noted by the patient. Critical care attestation.: If time is entered above; I have spent that time in minutes in the direct care of this critically ill patient, excluding procedure time. ED Disposition Clinical Impression: Dizziness, Shortness of breath UTI (urinary tract infection) Qualifiers: Urinary tract infection type: acute cystitis Hematuria presence: with hematuria Qualified Code(s): N30.01 - Acute cystitis with hematuria Disposition: TO HOME OR SELFCARE Is pt being admited?: No Does the pt Need Aspirin: No Condition: Stable Instructions: Urinary Tract Infection in Women (ED), Dizziness (ED) Additional Instructions: Follow-up with a primary care doctor in 3-5 days or if symptoms worsen and continue return to emergency room as soon as possible. Prescriptions: Sulfamethoxazole/Trimethoprim [Bactrim DS TAB] 1 each PO BID #14 tablet ALBUTEROL Inhaler(NF) [VENTOLIN Inhaler(NF)] 2 puff IH Q4-6H PRN #1 inha PRN Reason: Wheezing Referrals: BONG LUISCARAWAY MD WEN [Primary Care Provider] - 3-5 Days PRIMARY CAREMD [Referring] - 3-5 Days VAISHALI ZIEGLER MD [Staff Physician] - 3-5 Days [facility] [Outside] - 3-5 Days Forms: Work/School Release Form(ED)
[2018-12-31 08:28] LABS: Bacteria,Urine 1+ /HPF (Negative); Bilirubin,Urine NEG (Negative); Blood,Urine MOD (Negative); Color,Urine Yellow (Yellow); Protein,Urine <15 mg/dL mg/dL (Negative); Urobilinogen,Urine < 2.0 mg/dL (<2.0)
[2018-12-31 08:30] LABS: HCG Qualitative,Urine Negative (Negative)
--- NOTE | 2018-12-31 09:36 | XRay Report ---
ROUTINE CHEST, TWO VIEWS: HISTORY: Shortness of breath. The trachea, heart, mediastinal contour, lung augustin and bony thorax are unremarkable. IMPRESSION: Unremarkable chest x-ray.
== END 2018-12-31 10:11 | disposition home or self-care (01) ==
LOC: ED 06:14
DX: N30.01 Acute cystitis with hematuria (principal); R42 Dizziness and giddiness; R06.02 Shortness of breath; J45.909 Unspecified asthma, uncomplicated; F17.200 Nicotine dependence, unspecified, uncomplicated; Z98.51 Tubal ligation status; Z79.899 Other long term (current) drug therapy; Z88.6 Allergy status to analgesic agent
CPT/HCPCS: 36415; 71046; 80048; 81001; 81025; 84484; 85025; 85379; 93005; 93010; 94640; 96361; 96374; 99284; J1100; J7030

== ENCOUNTER 2019-10-15 15:35 | Emergency (ER) | payer SELFPAY ==
[2019-10-15] MEDS ORDERED: IPRATROPIUM/ALBUTEROL SULFATE 3 ML AMPUL.NEB IH ONE (15:41)
[2019-10-15] MEDS ORDERED: ALBUTEROL 2.5 MG/3 ML NEBU IH ONE ×2 (16:48→20:16)
[2019-10-15] MEDS ORDERED: methylPREDNISolone Sod Succinate 125 MG/2 ML INJ IV ONE (16:48)
[2019-10-15] MEDS ORDERED: IPRATROPIUM 0.02% NEBU 2.5 ML IH ONE ×2 (16:48→20:16)
--- NOTE | 2019-10-15 16:48 | Event Note ---
ED Screening Note ED Screening Note: PMHx asthma +cough +congestion 5 days +sob + wheezing +subjective fever +smoker allergy to toradol LNMP: 09/27/19 This initial assessment/diagnostic orders/clinical plan/treatment(s) is/are subject to change based on patients health status, clinical progression and re- assessment by fellow clinical providers in the ED. Further treatment and workup at subsequent clinical providers discretion. Patient/guardian urged not to elope from the ED as their condition may be serious if not clinically assessed and managed. Initial orders include: CXR, steroids, neb tx
[2019-10-15 16:50] VITALS: BP 111/92
[2019-10-15] MEDS ORDERED: dexAMETHasone 20 MG/5 ML VIAL IM ONE (16:51)
--- NOTE | 2019-10-15 18:17 | XRay Report ---
CHEST 1 VIEW INDICATION: prod cough, SOB COMPARISON: 12/31/2018 FINDINGS: Support devices: None Heart: Normal and unchanged Lungs/Pleura: No acute pulmonary or pleural findings. IMPRESSION: 1. No active disease and no interval change. Signer Name: Avinash Crain MD Signed: 10/15/2019 6:12 PM Workstation Name: [id number]
--- NOTE | 2019-10-15 20:55 | Emergency Department Report ---
Upper Respiratory HPI - HPI Chief Complaint: Upper Respiratory Infection Stated Complaint: CAROLYNE/ASTHMA Time Seen by Provider: 10/15/19 16:46 Duration: 4 Days URI Symptoms: Rhinorrhea: Yes, Sore Throat: No, Ear Pain: No, Cough: Yes, Shortness of Breath: Yes, Sick Contacts: No, Unable to Take Fluids: No, Urine Output Abnormal: No, Listless Behavior: No Other History: This is a 39-year-old female nontoxic, well nourished in appearance, no acute signs of distress presents to the ED with c/o of dry cough, shortness of breathe, wheezing, rhinorrhea, nasal congestion x4 days. Patient denies any sick contacts. Patient denies any recent travels, long car, recent hospital stays. Patient denies any calf pain or calf tenderness. Patient denies any chest pain, fever, chills, nausea, vomiting, hemoptysis, numbness, tingling, headache or stiff neck. She stated past medical history includes asthma, seizures and pancreatitis. - Home Meds and Allergies Home Medications: Home Medications Medication Instructions Recorded Confirmed Last Taken Gabapentin [Neurontin] 800 mg PO Q8H 05/04/15 03/10/17 1 Day Ago ~03/09/17 Previous Rx's Medication Instructions Recorded Last Taken Type Amoxicillin 1,000 mg PO BID #40 capsule 03/10/17 Unknown Rx traMADoL [Ultram 50 MG tab] 50 mg PO Q4HR PRN #30 tablet 03/10/17 Unknown Rx Amoxicillin/K Clav Tab [Augmentin 1 tab PO Q12HR #20 tab 05/08/17 Unknown Rx 875 mg] Chlorhexidine Mouthwash [Peridex] 15 ml MM BID #1 bottle 05/08/17 Unknown Rx Clindamycin [Clindamycin CAP] 300 mg PO TID #40 capsule 05/08/17 Unknown Rx HYDROcodone/APAP 7.5-325 [[place] 1 each PO Q8HR PRN #14 tablet 05/08/17 Unknown Rx 7.5/325] Acetaminophen/Codeine [Tylenol 1 tab PO Q6H PRN #12 tab 06/04/17 Unknown Rx /Codeine # 3 tab] Cyclobenzaprine [Flexeril] 10 mg PO TID PRN #15 tablet 06/04/17 Unknown Rx Acetaminophen [Tylenol Extra 1,000 mg PO Q6H #24 tablet 06/27/18 Unknown Rx Strength] Ondansetron [Zofran Odt] 4 mg PO Q8HR #9 tab.rapdis 06/27/18 Unknown Rx ALBUTEROL Inhaler(NF) [VENTOLIN 2 puff IH Q4-6H PRN #1 inha 12/31/18 Unknown Rx Inhaler(NF)] Sulfamethoxazole/Trimethoprim 1 each PO BID #14 tablet 12/31/18 Unknown Rx [Bactrim DS TAB] ALBUTEROL Inhaler (OR & NICU) 2 puff IH QID PRN #8.5 gram 10/15/19 Unknown Rx [ProAir HFA Inhaler] Benzonatate [Tessalon Perles] 100 mg PO Q8HR PRN #20 capsule 10/15/19 Unknown Rx Prednisone [predniSONE 10 mg 10 mg PO .TAPER #1 tab.ds.pk 10/15/19 Unknown Rx (6-Day Pack, 21 Tabs)] Allergies/Adverse Reactions: Allergies Allergy/AdvReac Type Severity Reaction Status Date / Time ketorolac tromethamine Allergy Rash Verified 09/05/15 13:30 [From Toradol] ED Review of Systems ROS: Stated complaint: CAROLYNE/ASTHMA Other details as noted in HPI Constitutional: denies: chills, fever Eyes: denies: eye pain, eye discharge, vision change ENT: congestion. denies: ear pain, throat pain Respiratory: cough, shortness of breath, wheezing Cardiovascular: denies: chest pain, palpitations Endocrine: no symptoms reported Gastrointestinal: denies: abdominal pain, nausea, diarrhea Genitourinary: denies: urgency, dysuria, discharge Musculoskeletal: denies: back pain, joint swelling, arthralgia Skin: denies: rash, lesions Neurological: denies: headache, weakness, paresthesias Psychiatric: denies: anxiety, depression Hematological/Lymphatic: denies: easy bleeding, easy bruising ED Past Medical Hx - Past Medical History Previous Medical History?: Yes Hx Seizures: Yes Hx Asthma: Yes Additional medical history: Pancreatitis, cyst on right ovary, Vaginal delivery x 2 - Surgical History Past Surgical History?: Yes Additional Surgical History: tubaligation - Social History Smoking Status: Current Every Day Smoker Substance Use Type: None - Medications Home Medications: Home Medications Medication Instructions Recorded Confirmed Last Taken Type Gabapentin [Neurontin] 800 mg PO Q8H 05/04/15 03/10/17 1 Day Ago History ~03/09/17 Amoxicillin 1,000 mg PO BID #40 capsule 03/10/17 Unknown Rx traMADoL [Ultram 50 MG tab] 50 mg PO Q4HR PRN #30 tablet 03/10/17 Unknown Rx Amoxicillin/K Clav Tab [Augmentin 1 tab PO Q12HR #20 tab 05/08/17 Unknown Rx 875 mg] Chlorhexidine Mouthwash [Peridex] 15 ml MM BID #1 bottle 05/08/17 Unknown Rx Clindamycin [Clindamycin CAP] 300 mg PO TID #40 capsule 05/08/17 Unknown Rx HYDROcodone/APAP 7.5-325 [[place] 1 each PO Q8HR PRN #14 tablet 05/08/17 Unknown Rx 7.5/325] Acetaminophen/Codeine [Tylenol 1 tab PO Q6H PRN #12 tab 06/04/17 Unknown Rx /Codeine # 3 tab] Cyclobenzaprine [Flexeril] 10 mg PO TID PRN #15 tablet 06/04/17 Unknown Rx Acetaminophen [Tylenol Extra 1,000 mg PO Q6H #24 tablet 06/27/18 Unknown Rx Strength] Ondansetron [Zofran Odt] 4 mg PO Q8HR #9 tab.rapdis 06/27/18 Unknown Rx ALBUTEROL Inhaler(NF) [VENTOLIN 2 puff IH Q4-6H PRN #1 inha 12/31/18 Unknown Rx Inhaler(NF)] Sulfamethoxazole/Trimethoprim 1 each PO BID #14 tablet 12/31/18 Unknown Rx [Bactrim DS TAB] ALBUTEROL Inhaler (OR & NICU) 2 puff IH QID PRN #8.5 gram 10/15/19 Unknown Rx [ProAir HFA Inhaler] Benzonatate [Tessalon Perles] 100 mg PO Q8HR PRN #20 capsule 10/15/19 Unknown Rx Prednisone [predniSONE 10 mg 10 mg PO .TAPER #1 tab.ds.pk 10/15/19 Unknown Rx (6-Day Pack, 21 Tabs)] ED Bronchiolitis Physical Exam - Exam General: Vital signs noted. No distress. Alert and acting appropriately. Neurologic: Alert and oriented, no deficits. Musculoskeletal: Unremarkable. ED Bronchiolitis Tests - Testing Testing: CXR: Normal/Negative ED Physical Exam - General Limitations: No Limitations General appearance: alert, in no apparent distress - Head Head exam: Present: atraumatic, normocephalic - Neck Neck exam: Present: normal inspection, full ROM. Absent: tenderness, meningismus, lymphadenopathy - Respiratory Respiratory exam: Present: wheezes. Absent: respiratory distress, rales, rhonchi, stridor, chest wall tenderness, accessory muscle use, decreased breath sounds, prolonged expiratory - Cardiovascular Cardiovascular Exam: Present: regular rate, normal rhythm, normal heart sounds. Absent: irregular rhythm, systolic murmur, diastolic murmur, rubs, gallop - Extremities Exam Extremities exam: Present: normal inspection, full ROM, normal capillary refill. Absent: tenderness - Back Exam Back exam: Present: normal inspection, full ROM. Absent: tenderness, CVA tenderness (R), CVA tenderness (L), muscle spasm, paraspinal tenderness, vertebral tenderness, rash noted - Neurological Exam Neurological exam: Present: alert, oriented X3, normal gait - Psychiatric Psychiatric exam: Present: normal affect, normal mood - Skin Skin exam: Present: warm, dry, intact, normal color. Absent: rash ED Course Vital Signs 10/15/19 10/15/19 16:46 20:39 Temperature 98.6 F Pulse Rate 104 H 88 Respiratory 24 20 Rate Blood Pressure 111/92 O2 Sat by Pulse 99 97 Oximetry - Reevaluation(s) Reevaluation #1: 10/15/19 21:01 Patient is speaking in full sentences with no signs of distress noted. ED Medical Decision Making - Medical Decision Making This is a 39-year-old female that presents with bronchitis with wheezing. Patient is stable and was examined by me. Chest x-ray has been obtained and dictated by radiologist with normal exam. Patient is notified of x-ray results with no questions noted. Patient was instructed to increase hydration, rest and take Motrin for fever episodes. Patient did receive breathing treatment and steroids in the ED which patient the symptoms has resolved and subsided. Posttreatment and there is no wheezing upon auscultation. Patient is discharged with albuterol and prednisone. Patient is nonfebrile and normal heart rate. Patient was instructed Follow-up with a primary care doctor in 3-5 days or if symptoms worsen and continue return to emergency room as soon as possible. At time time of discharge, the patient does not seem toxic or ill in appearance. No acute signs of distress noted. Patient agrees to discharge treatment plan of care. No further questions noted by the patient. Critical care attestation.: If time is entered above; I have spent that time in minutes in the direct care of this critically ill patient, excluding procedure time. ED Disposition Clinical Impression: Bronchitis, Wheezing Disposition: DC-01 TO HOME OR SELFCARE Is pt being admited?: No Does the pt Need Aspirin: No Condition: Stable Instructions: Acute Bronchitis (ED) Additional Instructions: Follow-up with a primary care doctor in 3-5 days or if symptoms worsen and continue return to emergency room as soon as possible. Prescriptions: Prednisone [predniSONE 10 mg (6-Day Pack, 21 Tabs)] 10 mg PO .TAPER #1 tab.ds.pk ALBUTEROL Inhaler (OR & NICU) [ProAir HFA Inhaler] 2 puff IH QID PRN #8.5 gram PRN Reason: Shortness Of Breath Benzonatate [Tessalon Perles] 100 mg PO Q8HR PRN #20 capsule PRN Reason: Cough Referrals: PRIMARY CAREMD [Primary Care Provider] - 3-5 Days [facility] GONZALES MD [Staff Physician] - 3-5 Days [facility] [Outside] - 3-5 Days [facility] [Outside] - 3-5 Days Forms: Work/School Release Form(ED)
[2019-10-15] MEDS ORDERED: BENZONATATE 100 MG CAP PO ONE (20:59)
== END 2019-10-15 21:33 | disposition home or self-care (01) ==
LOC: ED 15:35
DX: J40 Bronchitis, not specified as acute or chronic (principal); F17.200 Nicotine dependence, unspecified, uncomplicated; Z98.51 Tubal ligation status; Z79.2 Long term (current) use of antibiotics; Z79.899 Other long term (current) drug therapy; Z88.8 Allergy status to other drugs, medicaments and biological substances
CPT/HCPCS: 71046; 94640; 96372; 99284; J1100

== ENCOUNTER 2019-11-13 15:57 | Emergency (ER) | payer SELFPAY ==
--- NOTE | 2019-11-13 16:07 | Event Note ---
ED Screening Note Date of service: 11/13/19 Time: 16:04 ED Screening Note: This is a 39 y.o. F. that presents with allergic reaction and dysphasia since last night. Patient states she don't recall eating anything unusual. Patient states it feel like a ball is stuck in her throat. She took 3 Benadryl since last night. This initial assessment/diagnostic orders/clinical plan/treatment(s) is/are subject to change based on patients health status, clinical progression and re- assessment by fellow clinical providers in the ED. Further treatment and workup at subsequent clinical providers discretion. Patient/guardian urged not to elope from the ED as their condition may be serious if not clinically assessed and managed. Initial orders include: Steroids
[2019-11-13] MEDS ORDERED: dexAMETHasone 20 MG/5 ML VIAL IM ONE (16:08)
[2019-11-13 16:09] VITALS: BP 118/92
--- NOTE | 2019-11-13 18:39 | Emergency Department Report ---
ED Allergic Reaction HPI - General Chief complaint: Allergic Reaction Stated complaint: POSS ALLERGIC REACTION Time Seen by Provider: 11/13/19 16:04 Source: patient Mode of arrival: Ambulatory Limitations: No Limitations - History of Present Illness Initial Comments: This is a 39-year-old female presents to ED stating she thinks she may have had an allergic reaction. Patient states that this morning she felt like there was something in her throat while she was swallowing. Patient states she took 3 Benadryl prior to coming to the ER. Patient states that when she swallows. Or drinks she feels a weird lump on the right side of her throat. Patient denies any rash fever, inability to swallow or breathe, shortness of breath or any other symptoms Exposure: unknown, food (unsure) Severity: mild Treatment Prior to Arrival: benadryl Previous Allergy History: none - Related Data Home Medications Medication Instructions Recorded Confirmed Last Taken Gabapentin [Neurontin] 800 mg PO Q8H 05/04/15 03/10/17 1 Day Ago ~03/09/17 Previous Rx's Medication Instructions Recorded Last Taken Type Amoxicillin 1,000 mg PO BID #40 capsule 03/10/17 Unknown Rx traMADoL [Ultram 50 MG tab] 50 mg PO Q4HR PRN #30 tablet 03/10/17 Unknown Rx Amoxicillin/K Clav Tab [Augmentin 1 tab PO Q12HR #20 tab 05/08/17 Unknown Rx 875 mg] Chlorhexidine Mouthwash [Peridex] 15 ml MM BID #1 bottle 05/08/17 Unknown Rx Clindamycin [Clindamycin CAP] 300 mg PO TID #40 capsule 05/08/17 Unknown Rx HYDROcodone/APAP 7.5-325 [[place] 1 each PO Q8HR PRN #14 tablet 05/08/17 Unknown Rx 7.5/325] Acetaminophen/Codeine [Tylenol 1 tab PO Q6H PRN #12 tab 06/04/17 Unknown Rx /Codeine # 3 tab] Cyclobenzaprine [Flexeril] 10 mg PO TID PRN #15 tablet 06/04/17 Unknown Rx Acetaminophen [Tylenol Extra 1,000 mg PO Q6H #24 tablet 06/27/18 Unknown Rx Strength] Ondansetron [Zofran Odt] 4 mg PO Q8HR #9 tab.rapdis 06/27/18 Unknown Rx ALBUTEROL Inhaler(NF) [VENTOLIN 2 puff IH Q4-6H PRN #1 inha 12/31/18 Unknown Rx Inhaler(NF)] Sulfamethoxazole/Trimethoprim 1 each PO BID #14 tablet 12/31/18 Unknown Rx [Bactrim DS TAB] Albuterol INH(or & Nicu Only) 2 puff IH QID PRN #8.5 gram 10/15/19 Unknown Rx [ProAir HFA Inhaler] Benzonatate [Tessalon Perles] 100 mg PO Q8HR PRN #20 capsule 10/15/19 Unknown Rx Prednisone [predniSONE 10 mg 10 mg PO .TAPER #1 tab.ds.pk 10/15/19 Unknown Rx (6-Day Pack, 21 Tabs)] predniSONE [Deltasone] 10 mg PO QDAY #4 tab 11/13/19 Unknown Rx Allergies Allergy/AdvReac Type Severity Reaction Status Date / Time ketorolac tromethamine Allergy Rash Verified 09/05/15 13:30 [From Toradol] ED Review of Systems ROS: Stated complaint: POSS ALLERGIC REACTION Other details as noted in HPI Comment: All other systems reviewed and negative ED Past Medical Hx - Past Medical History Hx Seizures: Yes Hx Asthma: Yes Additional medical history: Pancreatitis, cyst on right ovary, Vaginal delivery x 2 - Surgical History Additional Surgical History: tubaligation - Social History Smoking Status: Light Tobacco Smoker - Medications Home Medications: Home Medications Medication Instructions Recorded Confirmed Last Taken Type Gabapentin [Neurontin] 800 mg PO Q8H 05/04/15 03/10/17 1 Day Ago History ~03/09/17 Amoxicillin 1,000 mg PO BID #40 capsule 03/10/17 Unknown Rx traMADoL [Ultram 50 MG tab] 50 mg PO Q4HR PRN #30 tablet 03/10/17 Unknown Rx Amoxicillin/K Clav Tab [Augmentin 1 tab PO Q12HR #20 tab 05/08/17 Unknown Rx 875 mg] Chlorhexidine Mouthwash [Peridex] 15 ml MM BID #1 bottle 05/08/17 Unknown Rx Clindamycin [Clindamycin CAP] 300 mg PO TID #40 capsule 05/08/17 Unknown Rx HYDROcodone/APAP 7.5-325 [[place] 1 each PO Q8HR PRN #14 tablet 05/08/17 Unknown Rx 7.5/325] Acetaminophen/Codeine [Tylenol 1 tab PO Q6H PRN #12 tab 06/04/17 Unknown Rx /Codeine # 3 tab] Cyclobenzaprine [Flexeril] 10 mg PO TID PRN #15 tablet 06/04/17 Unknown Rx Acetaminophen [Tylenol Extra 1,000 mg PO Q6H #24 tablet 06/27/18 Unknown Rx Strength] Ondansetron [Zofran Odt] 4 mg PO Q8HR #9 tab.rapdis 06/27/18 Unknown Rx ALBUTEROL Inhaler(NF) [VENTOLIN 2 puff IH Q4-6H PRN #1 inha 12/31/18 Unknown Rx Inhaler(NF)] Sulfamethoxazole/Trimethoprim 1 each PO BID #14 tablet 12/31/18 Unknown Rx [Bactrim DS TAB] Albuterol INH(or & Nicu Only) 2 puff IH QID PRN #8.5 gram 10/15/19 Unknown Rx [ProAir HFA Inhaler] Benzonatate [Tessalon Perles] 100 mg PO Q8HR PRN #20 capsule 10/15/19 Unknown Rx Prednisone [predniSONE 10 mg 10 mg PO .TAPER #1 tab.ds.pk 10/15/19 Unknown Rx (6-Day Pack, 21 Tabs)] predniSONE [Deltasone] 10 mg PO QDAY #4 tab 11/13/19 Unknown Rx ED Physical Exam - General Limitations: No Limitations General appearance: alert, in no apparent distress - Head Head exam: Present: atraumatic, normocephalic - Eye Eye exam: Present: normal appearance - ENT ENT exam: Present: mucous membranes moist - Expanded ENT Exam Expanded Mouth exam: Present: tongue normal. Absent: drooling, trismus, laceration Teeth exam: Present: normal inspection. Absent: gingival enlargement Throat exam: Positive: normal inspection, other (patent airways). Negative: tonsillar erythema, tonsillomegaly, tonsillar exudate, R peritonsillar mass, L peritonsillar mass - Neck Neck exam: Present: normal inspection, full ROM. Absent: tenderness, lymphadenopathy - Respiratory Respiratory exam: Present: normal lung sounds bilaterally. Absent: respiratory distress - Cardiovascular Cardiovascular Exam: Present: regular rate, normal rhythm. Absent: systolic murmur, diastolic murmur, rubs, gallop - GI/Abdominal GI/Abdominal exam: Present: soft, normal bowel sounds - Extremities Exam Extremities exam: Present: normal inspection - Back Exam Back exam: Present: normal inspection - Neurological Exam Neurological exam: Present: alert, oriented X3 - Psychiatric Psychiatric exam: Present: normal affect, normal mood - Skin Skin exam: Present: warm, dry, intact, normal color. Absent: rash ED Course Vital Signs 11/13/19 16:00 Temperature 98.6 F Pulse Rate 95 H Respiratory 16 Rate Blood Pressure 118/92 O2 Sat by Pulse 99 Oximetry ED Medical Decision Making - Medical Decision Making 39-year-old female who presents with possible allergic reaction to something she ingested. Patient received Benadryl prior to the ER. Patient received 10 mg of dexamethasone. Patient is speaking in clear sentences, airway was patent. She is in no re spiratory distress. Discussed patient to follow-up with ENT if continued symptoms. Vital signs are normal patient is in no acute distress Critical care attestation.: If time is entered above; I have spent that time in minutes in the direct care of this critically ill patient, excluding procedure time. ED Disposition Clinical Impression: Allergic reaction Disposition: DC-01 TO HOME OR SELFCARE Is pt being admited?: No Does the pt Need Aspirin: No Condition: Stable Instructions: Anaphylaxis (ED) Additional Instructions: Make sure to follow up with the primary care physician as discussed. Take all your medications as you've been prescribed. If you have any worsening symptoms or develop new symptoms please return to ED immediately. Prescriptions: predniSONE [Deltasone] 10 mg PO QDAY #4 tab Referrals: [facility] [Provider Group] - 3-5 Days KEVIN MARTIN MD [Staff Physician] - 3-5 Days Forms: Work/School Release Form(ED) Time of Disposition: 18:39
== END 2019-11-13 19:00 | disposition home or self-care (01) ==
LOC: ED 15:57
DX: T78.40XA Allergy, unspecified, initial encounter (principal); J45.909 Unspecified asthma, uncomplicated; F17.200 Nicotine dependence, unspecified, uncomplicated; Y92.89 Other specified places as the place of occurrence of the external cause
CPT/HCPCS: 96372; 99281; J1100

== ENCOUNTER 2020-07-18 21:30 | Emergency (ER) | payer SELFPAY ==
[2020-07-18 22:05] LABS: Basophils % (Auto) 0.1 % (0.0-1.8); Eosinophils # (Auto) 0.4 K/mm3 (0.0-0.4); Eosinophils % (Auto) 3.8 % (0.0-4.3); Hematocrit 40.5 % (30.3-42.9); Hemoglobin 13.5 gm/dl (10.1-14.3); Lymphocytes # (Auto) 3.1 K/mm3 (1.2-5.4); Lymphocytes % (Auto) 26.3 % (13.4-35.0); Mean Corpuscular HGB Conc 33 % (30-34); Mean Corpuscular Volume 98 fl (79-97); Monocytes # (Auto) 0.7 K/mm3 (0.0-0.8); Platelet Count 196 K/mm3 (140-440); Red Blood Count 4.13 M/mm3 (3.65-5.03); Red Cell Distribution Width 14.9 % (13.2-15.2)
[2020-07-18 22:18] VITALS: BP 116/80
[2020-07-18 22:20] LABS: BUN/Creatinine Ratio 19; Blood Urea Nitrogen 15 mg/dL (7-17); Hemolysis Index 11
--- NOTE | 2020-07-18 22:52 | XRay Report ---
CHEST 2 VIEWS INDICATION / CLINICAL INFORMATION: Chest Pain. COMPARISON: 10/15/2019 FINDINGS: SUPPORT DEVICES: None. HEART / MEDIASTINUM: No significant abnormality. LUNGS / PLEURA: No significant pulmonary or pleural abnormality. No pneumothorax. ADDITIONAL FINDINGS: No significant additional findings. IMPRESSION: 1. No acute findings. Signer Name: Quintin Thornton MD Signed: 07/18/2020 10:47 PM Workstation Name: [id number]
== END 2020-07-19 02:05 | disposition left against medical advice (07) ==
LOC: ED 21:30
DX: R06.00 Dyspnea, unspecified (principal); Z53.21 Procedure and treatment not carried out due to patient leaving prior to being seen by health care provider
CPT/HCPCS: 36415; 71046; 80048; 84484; 84703; 85025; 93005

== ENCOUNTER 2020-10-04 19:41 | Emergency (ER) | payer SELFPAY ==
[2020-10-04] MEDS ORDERED: ASPIRIN 325 MG TAB PO ONE (20:00)
--- NOTE | 2020-10-04 20:47 | XRay Report ---
CHEST PA AND LATERAL VIEWS INDICATION: Chest Pain. COMPARISON: 07/18/2020 FINDINGS: Support devices: None. Heart: Within normal limits. Lungs/Pleura: No acute pulmonary or pleural findings. IMPRESSION: 1. No acute findings. Signer Name: Dimas Li MD Signed: 10/04/2020 8:43 PM Workstation Name: [id number]
[2020-10-04 20:56] LABS: BUN/Creatinine Ratio TNR; Blood Urea Nitrogen TNR mg/dL (7-17); Calcium TNR mg/dL (8.4-10.2); Hemolysis Index TNR
[2020-10-04 21:14] LABS: Hemoglobin 14.1 gm/dl (10.1-14.3); Mean Corpuscular HGB Conc 34 % (30-34); Mean Corpuscular Volume 102 fl (79-97); Platelet Count 212 K/mm3 (140-440); Red Blood Count 4.12 M/mm3 (3.65-5.03); Red Cell Distribution Width 14.3 % (13.2-15.2)
[2020-10-05] MEDS ORDERED: predniSONE 20 MG TAB PO ONE (02:28)
[2020-10-05] MEDS ORDERED: IPRATROPIUM/ALBUTEROL SULFATE 3 ML AMPUL.NEB IH ONE (02:28)
[2020-10-05 02:38] LABS: BUN/Creatinine Ratio 16; Blood Urea Nitrogen 13 mg/dL (7-17); Calcium 9.1 mg/dL (8.4-10.2); Hemolysis Index 17
[2020-10-05] MEDS ORDERED: HYDROcodone/ACETAMINOPHEN 5-325 MG TAB PO ONE (02:49)
[2020-10-05] MEDS ORDERED: BENZONATATE 100 MG CAP PO ONE (02:49)
[2020-10-05] MEDS ORDERED: guaiFENesin/CODEINE 100-10MG ORAL LIQD 5 ML PO ONE (03:00)
[2020-10-05 03:35] VITALS: BP 106/79
--- NOTE | 2020-10-05 03:41 | Emergency Department Report ---
- General Chief Complaint: Chest Pain Stated Complaint: CHEST PAIN BREATHING PROBLEM COUGHING Time Seen by Provider: 10/05/20 02:01 Source: patient Mode of arrival: Ambulatory Limitations: No Limitations - History of Present Illness Initial Comments: 40-year-old female with a past medical history of previous alcohol abuse and asthma presents to the hospital complaints of dry cough for the last 3 days. Patient states she is coughing very hard and has difficulty sleeping. She is now experiencing pain to her chest with coughing that is worse with palpation and movement. Positive associated wheezing and shortness of breath. She states maximum temperature 100.3 and she took Tylenol earlier today. She denies note: Her own avoids exposure and states last Covid test was negative 4 months ago. She denies loss of sense of taste or smell - Related Data Home Medications Medication Instructions Recorded Confirmed Last Taken Gabapentin [Neurontin] 800 mg PO Q8H 05/04/15 03/10/17 1 Day Ago ~03/09/17 Previous Rx's Medication Instructions Recorded Last Taken Type Amoxicillin 1,000 mg PO BID #40 capsule 03/10/17 Unknown Rx traMADoL [Ultram 50 MG tab] 50 mg PO Q4HR PRN #30 tablet 03/10/17 Unknown Rx Amoxicillin/K Clav Tab [Augmentin 1 tab PO Q12HR #20 tab 05/08/17 Unknown Rx 875 mg] Chlorhexidine Mouthwash [Peridex] 15 ml MM BID #1 bottle 05/08/17 Unknown Rx Clindamycin [Clindamycin CAP] 300 mg PO TID #40 capsule 05/08/17 Unknown Rx HYDROcodone/APAP 7.5-325 [[place] 1 each PO Q8HR PRN #14 tablet 05/08/17 Unknown Rx 7.5/325] Acetaminophen/Codeine [Tylenol 1 tab PO Q6H PRN #12 tab 06/04/17 Unknown Rx /Codeine # 3 tab] Cyclobenzaprine [Flexeril] 10 mg PO TID PRN #15 tablet 06/04/17 Unknown Rx Acetaminophen [Tylenol Extra 1,000 mg PO Q6H #24 tablet 06/27/18 Unknown Rx Strength] Ondansetron [Zofran Odt] 4 mg PO Q8HR #9 tab.rapdis 06/27/18 Unknown Rx ALBUTEROL Inhaler(NF) [VENTOLIN 2 puff IH Q4-6H PRN #1 inha 12/31/18 Unknown Rx Inhaler(NF)] Sulfamethoxazole/Trimethoprim 1 each PO BID #14 tablet 12/31/18 Unknown Rx [Bactrim DS TAB] Albuterol Mdi (or & Nicu Only) 2 puff IH QID PRN #8.5 gram 10/15/19 Unknown Rx [ProAir HFA Inhaler] Prednisone [predniSONE 10 mg 10 mg PO .TAPER #1 tab.ds.pk 10/15/19 Unknown Rx (6-Day Pack, 21 Tabs)] predniSONE 10 mg PO QDAY #4 tab 11/13/19 Unknown Rx ALBUTEROL NEB's [Proventil 0.083% 2.5 mg IH TID PRN #30 neb 10/05/20 Unknown Rx NEBS] Albuterol Sulfate [Proventil Hfa] 2 inhalation IH Q4HR PRN #1 10/05/20 Unknown Rx hfa.aer.ad Azithromycin [Zithromax Z-ELIANA] 1 dose PO DAILY 5 Days tab 10/05/20 Unknown Rx Benzonatate [Tessalon Perles] 100 mg PO Q8HR PRN #20 capsule 10/05/20 Unknown Rx Prednisone [predniSONE 10 mg 10 mg PO .TAPER #1 tab.ds.pk 10/05/20 Unknown Rx (6-Day Pack, 21 Tabs)] guaiFENesin/CODEINE [Robitussin AC] 10 ml PO Q6HR PRN #40 ml 10/05/20 Unknown Rx Allergies Allergy/AdvReac Type Severity Reaction Status Date / Time ketorolac tromethamine Allergy Rash Verified 09/05/15 13:30 [From Toradol] ED Review of Systems ROS: Stated complaint: CHEST PAIN BREATHING PROBLEM COUGHING Other details as noted in HPI Comment: All other systems reviewed and negative ED Past Medical Hx - Past Medical History Hx Seizures: Yes (ETOH withdrawals) Hx Asthma: Yes Additional medical history: Pancreatitis, cyst on right ovary, Vaginal delivery x 2 - Surgical History Additional Surgical History: tubaligation - Social History Smoking Status: Current Every Day Smoker Substance Use Type: Alcohol - Medications Home Medications: Home Medications Medication Instructions Recorded Confirmed Last Taken Type Gabapentin [Neurontin] 800 mg PO Q8H 05/04/15 03/10/17 1 Day Ago History ~03/09/17 Amoxicillin 1,000 mg PO BID #40 capsule 03/10/17 Unknown Rx traMADoL [Ultram 50 MG tab] 50 mg PO Q4HR PRN #30 tablet 03/10/17 Unknown Rx Amoxicillin/K Clav Tab [Augmentin 1 tab PO Q12HR #20 tab 05/08/17 Unknown Rx 875 mg] Chlorhexidine Mouthwash [Peridex] 15 ml MM BID #1 bottle 05/08/17 Unknown Rx Clindamycin [Clindamycin CAP] 300 mg PO TID #40 capsule 05/08/17 Unknown Rx HYDROcodone/APAP 7.5-325 [[place] 1 each PO Q8HR PRN #14 tablet 05/08/17 Unknown Rx 7.5/325] Acetaminophen/Codeine [Tylenol 1 tab PO Q6H PRN #12 tab 06/04/17 Unknown Rx /Codeine # 3 tab] Cyclobenzaprine [Flexeril] 10 mg PO TID PRN #15 tablet 06/04/17 Unknown Rx Acetaminophen [Tylenol Extra 1,000 mg PO Q6H #24 tablet 06/27/18 Unknown Rx Strength] Ondansetron [Zofran Odt] 4 mg PO Q8HR #9 tab.rapdis 06/27/18 Unknown Rx ALBUTEROL Inhaler(NF) [VENTOLIN 2 puff IH Q4-6H PRN #1 inha 12/31/18 Unknown Rx Inhaler(NF)] Sulfamethoxazole/Trimethoprim 1 each PO BID #14 tablet 12/31/18 Unknown Rx [Bactrim DS TAB] Albuterol Mdi (or & Nicu Only) 2 puff IH QID PRN #8.5 gram 10/15/19 Unknown Rx [ProAir HFA Inhaler] Prednisone [predniSONE 10 mg 10 mg PO .TAPER #1 tab.ds.pk 10/15/19 Unknown Rx (6-Day Pack, 21 Tabs)] predniSONE 10 mg PO QDAY #4 tab 11/13/19 Unknown Rx ALBUTEROL NEB's [Proventil 0.083% 2.5 mg IH TID PRN #30 neb 10/05/20 Unknown Rx NEBS] Albuterol Sulfate [Proventil Hfa] 2 inhalation IH Q4HR PRN #1 10/05/20 Unknown Rx hfa.aer.ad Azithromycin [Zithromax Z-ELIANA] 1 dose PO DAILY 5 Days tab 10/05/20 Unknown Rx Benzonatate [Tessalon Perles] 100 mg PO Q8HR PRN #20 capsule 10/05/20 Unknown Rx Prednisone [predniSONE 10 mg 10 mg PO .TAPER #1 tab.ds.pk 10/05/20 Unknown Rx (6-Day Pack, 21 Tabs)] guaiFENesin/CODEINE [Robitussin AC] 10 ml PO Q6HR PRN #40 ml 10/05/20 Unknown Rx ED Physical Exam - General Limitations: No Limitations - Other Other exam information: General: No acute distress Head: Atraumatic Eyes: normal appearance ENT: Moist mucous membranes Neck: Normal appearance, no midline tenderness Chest: Mild expiratory wheezing, no tachypnea or accessory muscle use, reproducible anterior chest wall tenderness to palpation, movement, and with coughing. CV: Regular rate and rhythm Abdomen: Soft, normal bowel sounds, nontender, nondistended, no rebound or guarding Back: Normal inspection Extremity: Normal inspection, full range of motion, no calf tenderness or leg edema Neuro: Alert O x 3, no facial asymmetry, speech clear, no gross motor sensory deficit Psych: Appropriate behavior Skin: No rash ED Course Vital Signs 10/04/20 10/05/20 10/05/20 20:00 01:50 03:04 Temperature 98.0 F Pulse Rate 97 H 75 Pulse Rate [ 77 Bilateral] Respiratory 17 17 Rate Respiratory 22 Rate [Bilateral ] Blood Pressure 112/83 136/64 O2 Sat by Pulse 99 100 Oximetry ED Medical Decision Making - Lab Data Result diagrams: 10/04/20 20:14 10/05/20 02:07 Lab Results 10/04/20 10/04/20 10/04/20 Range/Units 20:14 20:14 23:16 WBC 13.0 H (4.5-11.0) K/mm3 RBC 4.12 (3.65-5.03) M/mm3 Hgb 14.1 (10.1-14.3) gm/dl Hct 42.0 (30.3-42.9) % MCV 102 H (79-97) fl MCH 34 H (28-32) pg MCHC 34 (30-34) % RDW 14.3 (13.2-15.2) % Plt Count 212 (140-440) K/mm3 Lymph % (Auto) Icing Machine Operator [place] % (Auto) Icing Machine Operator Eos % (Auto) Icing Machine Operator Baso % (Auto) Icing Machine Operator Lymph # (Auto) Icing Machine Operator [place] # (Auto) Icing Machine Operator Eos # (Auto) Icing Machine Operator Baso # (Auto) Icing Machine Operator Seg Neutrophils % Icing Machine Operator Seg Neutrophils # Icing Machine Operator Sodium TNR Potassium TNR Chloride TNR Carbon Dioxide TNR Anion Gap TNR BUN TNR Creatinine TNR Estimated GFR TNR BUN/Creatinine Ratio TNR Glucose TNR Calcium TNR Troponin T TNR < 0.010 10/05/20 10/05/20 Range/Units 02:07 02:08 WBC (4.5-11.0) K/mm3 RBC (3.65-5.03) M/mm3 Hgb (10.1-14.3) gm/dl Hct (30.3-42.9) % MCV (79-97) fl MCH (28-32) pg MCHC (30-34) % RDW (13.2-15.2) % Plt Count (140-440) K/mm3 Lymph % (Auto) [place] % (Auto) Eos % (Auto) Baso % (Auto) Lymph # (Auto) [place] # (Auto) Eos # (Auto) Baso # (Auto) Seg Neutrophils % Seg Neutrophils # Sodium 137 Potassium 3.9 Chloride 103.0 Carbon Dioxide 22 Anion Gap 16 BUN 13 Creatinine 0.8 Estimated GFR > 60 BUN/Creatinine Ratio 16 Glucose 113 H Calcium 9.1 Troponin T < 0.010 - EKG Data -: EKG Interpreted by Al EKG shows normal: sinus rhythm, ST-T waves (No STEMI) Rate: normal (83) - Radiology Data Radiology results: report reviewed Chest x-ray: No acute finding - Medical Decision Making 40-year-old female presents to the hospital with URI symptoms with associated wheezing. Chest x-ray negative for infiltrate. Patient symptoms improved with bronchodilators, prednisone, [place], and Tessalon Perles. Patient will be discharged home on medications for acute bronchitis and advised to get outpatient Covid test to rule out coronavirus Critical Care Time: No Critical care attestation.: If time is entered above; I have spent that time in minutes in the direct care of this critically ill patient, excluding procedure time. ED Disposition Clinical Impression: Acute bronchitis with asthma with acute exacerbation, Chest wall pain Disposition: TO HOME OR SELFCARE Is pt being admited?: No Condition: Stable Instructions: Acute Bronchitis (ED), Acute Bronchitis, Adult, Chest Pain (ED), Chest Wall Pain, [id number] Additional Instructions: Take the medication as prescribed. Follow-up with your doctor or doctor/clinic provided. Return if symptoms worsen as indicated by your discharge instructions. Prescriptions: Prednisone [predniSONE 10 mg (6-Day Pack, 21 Tabs)] 10 mg PO .TAPER #1 tab.ds.pk ALBUTEROL NEB's [Proventil 0.083% NEBS] 2.5 mg IH TID PRN #30 neb PRN Reason: Wheezing Albuterol Sulfate [Proventil Hfa] 2 inhalation IH Q4HR PRN #1 hfa.aer.ad PRN Reason: Wheezing guaiFENesin/CODEINE [Robitussin AC] 10 ml PO Q6HR PRN #40 ml PRN Reason: Cough Benzonatate [Tessalon Perles] 100 mg PO Q8HR PRN #20 capsule PRN Reason: Cough Azithromycin [Zithromax Z-ELIANA] 1 dose PO DAILY 5 Days tab Referrals: PRIMARY MD KEYONNA [Primary Care Provider] - 3-5 Days MEGGAN NEFF MD [Staff Physician] - 3-5 Days [facility] [Provider Group] - 3-5 Days Time of Disposition: 03:41
== END 2020-10-05 03:53 | disposition home or self-care (01) ==
LOC: ED 19:41
DX: J45.909 Unspecified asthma, uncomplicated (principal); G40.909 Epilepsy, unspecified, not intractable, without status epilepticus; F17.200 Nicotine dependence, unspecified, uncomplicated; Z98.51 Tubal ligation status; Z79.899 Other long term (current) drug therapy; Z88.8 Allergy status to other drugs, medicaments and biological substances
CPT/HCPCS: 36415; 71045; 80048; 84484; 85025; 93005; 94640; 99284; J7512; 94644

== ENCOUNTER 2020-11-24 14:36 | Emergency (ER) | payer SELFPAY ==
--- NOTE | 2020-11-24 14:46 | Event Note ---
ED Screening Note Date of service: 11/24/20 Time: 14:45 ED Screening Note: 40-year-old female presents emerged department chief complaint of epigastric and right upper quadrant pain with associated nausea and vomiting that is radiating into her chest over the past 2 days. Has a history of pancreatitis reports this feels similar. This initial assessment/diagnostic orders/clinical plan/treatment(s) is/are subject to change based on patients health status, clinical progression and re-assessment by fellow clinical providers in the ED. Further treatment and workup at subsequent clinical providers discretion. Patient/guardian urged not to elope from the ED as their condition may be serious if not clinically assessed and managed. Initial orders include: CBC, CMP, lipase, urinalysis, urine test, chest x-ray, EKG, troponin
[2020-11-24 15:10] LABS: Basophils % (Auto) 0.2 % (0.0-1.8); Eosinophils # (Auto) 0.3 K/mm3 (0.0-0.4); Eosinophils % (Auto) 1.6 % (0.0-4.3); Hematocrit 43.2 % (30.3-42.9); Hemoglobin 14.2 gm/dl (10.1-14.3); Lymphocytes # (Auto) 1.7 K/mm3 (1.2-5.4); Lymphocytes % (Auto) 10.5 % (13.4-35.0); Mean Corpuscular HGB Conc 33 % (30-34); Mean Corpuscular Volume 99 fl (79-97); Monocytes # (Auto) 0.9 K/mm3 (0.0-0.8); Monocytes % (Auto) 5.5 % (0.0-7.3); Platelet Count 212 K/mm3 (140-440); Red Blood Count 4.37 M/mm3 (3.65-5.03); Red Cell Distribution Width 14.1 % (13.2-15.2)
[2020-11-24 15:24] LABS: Alanine Aminotransferase 35 units/L (7-56); Albumin 4.4 g/dL (3.9-5); BUN/Creatinine Ratio 23; Blood Urea Nitrogen 18 mg/dL (7-17); Calcium 8.9 mg/dL (8.4-10.2); Hemolysis Index 0; INR 0.83 (0.87-1.13)
--- NOTE | 2020-11-24 15:27 | XRay Report ---
CHEST 2 VIEWS INDICATION / CLINICAL INFORMATION: pain. COMPARISON: 10/04/2020 FINDINGS: SUPPORT DEVICES: None. HEART / MEDIASTINUM: No significant abnormality. LUNGS / PLEURA: No significant pulmonary or pleural abnormality. No pneumothorax. ADDITIONAL FINDINGS: No significant additional findings. IMPRESSION: 1. No acute findings. Signer Name: Yared Hale MD Signed: 11/24/2020 3:22 PM Workstation Name: [id number]
[2020-11-24 15:29] LABS: Bilirubin,Direct < 0.2 mg/dL (0-0.2)
[2020-11-24] MEDS ORDERED: HYDROmorphone 1 MG/1 ML INJ IV ONE ×3 (17:03→19:45)
[2020-11-24] MEDS ORDERED: ONDANSETRON 4 MG/2 ML INJ IV ONE (17:03)
[2020-11-24 17:51] LABS: Bilirubin,Urine NEG (Negative); Blood,Urine MOD (Negative); Color,Urine Yellow (Yellow); Mucus,Urine 2+ /HPF; Urobilinogen,Urine < 2.0 mg/dL (<2.0)
[2020-11-24 17:55] LABS: HCG Qualitative,Urine Negative (Negative)
--- NOTE | 2020-11-24 20:01 | Ultrasound Report ---
ULTRASOUND ABDOMEN, COMPLETE INDICATION: Right upper quadrant abdominal pain. COMPARISON: None available. FINDINGS: Pancreas: Normal. Abdominal Aorta: Normal. IVC: Normal. Liver: Normal. Gallbladder: Multiple gallstones. The gallbladder is borderline in thickness measuring 2.8 mm. There is a suggestion of wall edema on one image. Bile ducts: Normal. Common Bile Duct measures 1.8 mm. Right Kidney: Normal. Left Kidney: Probable small nonobstructing stones. Spleen: Normal. Free fluid: None. Additional Findings: None. IMPRESSION: 1. Centimeters with possible cholecystitis. 2. Small nonobstructing left renal stones. Signer Name: Rodney Kelly MD Signed: 11/24/2020 7:56 PM Workstation Name: [id number]
--- NOTE | 2020-11-24 20:35 | Emergency Department Report ---
ED Abdominal Pain HPI - General Chief Complaint: Abdominal Pain Stated Complaint: CHEST PAIN Time Seen by Provider: 11/24/20 15:48 Source: patient Mode of arrival: Ambulatory Limitations: No Limitations - History of Present Illness Initial Comments: Chief complaint: Abdominal pain HPI: This is a 40-year-old female with history of alcoholic pancreatitis, asthma, ovarian cyst who presents with severe 9 out of 10 sharp right upper quadrant pain rating to the back. Pain began suddenly this morning at 6 AM. Pain was so severe awaken her from sleep. She drank alcohol last night. She also ate Dive[place] sausage for dinner. She has nausea vomiting. She denies fever. Normally her pancreatic pain is located in the epigastric region. This pain is much different in location in nature. Somewhat sudden onset of pain. Pain has been persistent. Pain does not change with movement or palpation. No home medication attempted due to severe nausea vomiting. MD Complaint: abdominal pain -: Sudden, This morning (This morning at 6 AM awakening patient from sleep) Location: RUQ Radiation: R flank, back Severity scale (0 -10): 9 Quality: aching, sharp Consistency: constant Improves With: nothing Worsens With: nothing Associated Symptoms: vomiting, diarrhea - Related Data Home Medications Medication Instructions Recorded Confirmed Last Taken Gabapentin [Neurontin] 800 mg PO Q8H 05/04/15 03/10/17 1 Day Ago ~03/09/17 Previous Rx's Medication Instructions Recorded Last Taken Type Amoxicillin 1,000 mg PO BID #40 capsule 03/10/17 Unknown Rx traMADoL [Ultram 50 MG tab] 50 mg PO Q4HR PRN #30 tablet 03/10/17 Unknown Rx Amoxicillin/K Clav Tab [Augmentin 1 tab PO Q12HR #20 tab 05/08/17 Unknown Rx 875 mg] Chlorhexidine Mouthwash [Peridex] 15 ml MM BID #1 bottle 05/08/17 Unknown Rx Clindamycin [Clindamycin CAP] 300 mg PO TID #40 capsule 05/08/17 Unknown Rx HYDROcodone/APAP 7.5-325 [[place] 1 each PO Q8HR PRN #14 tablet 05/08/17 Unknown Rx 7.5/325] Acetaminophen/Codeine [Tylenol 1 tab PO Q6H PRN #12 tab 06/04/17 Unknown Rx /Codeine # 3 tab] Cyclobenzaprine [Flexeril] 10 mg PO TID PRN #15 tablet 06/04/17 Unknown Rx Acetaminophen [Tylenol Extra 1,000 mg PO Q6H #24 tablet 06/27/18 Unknown Rx Strength] Ondansetron [Zofran Odt] 4 mg PO Q8HR #9 tab.rapdis 06/27/18 Unknown Rx ALBUTEROL Inhaler(NF) [VENTOLIN 2 puff IH Q4-6H PRN #1 inha 12/31/18 Unknown Rx Inhaler(NF)] Sulfamethoxazole/Trimethoprim 1 each PO BID #14 tablet 12/31/18 Unknown Rx [Bactrim DS TAB] Albuterol Mdi (or & Nicu Only) 2 puff IH QID PRN #8.5 gram 10/15/19 Unknown Rx [ProAir HFA Inhaler] Prednisone [predniSONE 10 mg 10 mg PO .TAPER #1 tab.ds.pk 10/15/19 Unknown Rx (6-Day Pack, 21 Tabs)] predniSONE 10 mg PO QDAY #4 tab 11/13/19 Unknown Rx ALBUTEROL NEB's [Proventil 0.083% 2.5 mg IH TID PRN #30 neb 10/05/20 Unknown Rx NEBS] Albuterol Sulfate [Proventil Hfa] 2 inhalation IH Q4HR PRN #1 10/05/20 Unknown Rx hfa.aer.ad Azithromycin [Zithromax Z-ELIANA] 1 dose PO DAILY 5 Days tab 10/05/20 Unknown Rx Benzonatate [Tessalon Perles] 100 mg PO Q8HR PRN #20 capsule 10/05/20 Unknown Rx Prednisone [predniSONE 10 mg 10 mg PO .TAPER #1 tab.ds.pk 10/05/20 Unknown Rx (6-Day Pack, 21 Tabs)] guaiFENesin/CODEINE [Robitussin AC] 10 ml PO Q6HR PRN #40 ml 10/05/20 Unknown Rx Promethazine [Phenergan] 25 mg PO Q6HR PRN #15 tab 11/24/20 Unknown Rx levoFLOXacin [Levaquin TAB] 500 mg PO QDAY 10 Days #10 tablet 11/24/20 Unknown Rx oxyCODONE /ACETAMINOPHEN [Percocet 1 tab PO Q4HR PRN #20 tab 11/24/20 Unknown Rx 5/325] Allergies Allergy/AdvReac Type Severity Reaction Status Date / Time ketorolac tromethamine Allergy Rash Verified 09/05/15 13:30 [From Toradol] ED Review of Systems ROS: Stated complaint: CHEST PAIN Other details as noted in HPI Comment: All other systems reviewed and negative Constitutional: denies: fever, malaise Cardiovascular: denies: chest pain Gastrointestinal: abdominal pain, nausea, vomiting ED Past Medical Hx - Past Medical History Previous Medical History?: Yes Hx Seizures: Yes (ETOH withdrawals) Hx Asthma: Yes Additional medical history: Pancreatitis, cyst on right ovary, Vaginal delivery x 2 - Surgical History Past Surgical History?: Yes Additional Surgical History: tubaligation - Social History Smoking Status: Former Smoker Substance Use Type: Alcohol - Medications Home Medications: Home Medications Medication Instructions Recorded Confirmed Last Taken Type Gabapentin [Neurontin] 800 mg PO Q8H 05/04/15 03/10/17 1 Day Ago History ~03/09/17 Amoxicillin 1,000 mg PO BID #40 capsule 03/10/17 Unknown Rx traMADoL [Ultram 50 MG tab] 50 mg PO Q4HR PRN #30 tablet 03/10/17 Unknown Rx Amoxicillin/K Clav Tab [Augmentin 1 tab PO Q12HR #20 tab 05/08/17 Unknown Rx 875 mg] Chlorhexidine Mouthwash [Peridex] 15 ml MM BID #1 bottle 05/08/17 Unknown Rx Clindamycin [Clindamycin CAP] 300 mg PO TID #40 capsule 05/08/17 Unknown Rx HYDROcodone/APAP 7.5-325 [[place] 1 each PO Q8HR PRN #14 tablet 05/08/17 Unknown Rx 7.5/325] Acetaminophen/Codeine [Tylenol 1 tab PO Q6H PRN #12 tab 06/04/17 Unknown Rx /Codeine # 3 tab] Cyclobenzaprine [Flexeril] 10 mg PO TID PRN #15 tablet 06/04/17 Unknown Rx Acetaminophen [Tylenol Extra 1,000 mg PO Q6H #24 tablet 06/27/18 Unknown Rx Strength] Ondansetron [Zofran Odt] 4 mg PO Q8HR #9 tab.rapdis 06/27/18 Unknown Rx ALBUTEROL Inhaler(NF) [VENTOLIN 2 puff IH Q4-6H PRN #1 inha 12/31/18 Unknown Rx Inhaler(NF)] Sulfamethoxazole/Trimethoprim 1 each PO BID #14 tablet 12/31/18 Unknown Rx [Bactrim DS TAB] Albuterol Mdi (or & Nicu Only) 2 puff IH QID PRN #8.5 gram 10/15/19 Unknown Rx [ProAir HFA Inhaler] Prednisone [predniSONE 10 mg 10 mg PO .TAPER #1 tab.ds.pk 10/15/19 Unknown Rx (6-Day Pack, 21 Tabs)] predniSONE 10 mg PO QDAY #4 tab 11/13/19 Unknown Rx ALBUTEROL NEB's [Proventil 0.083% 2.5 mg IH TID PRN #30 neb 10/05/20 Unknown Rx NEBS] Albuterol Sulfate [Proventil Hfa] 2 inhalation IH Q4HR PRN #1 10/05/20 Unknown Rx hfa.aer.ad Azithromycin [Zithromax Z-ELIANA] 1 dose PO DAILY 5 Days tab 10/05/20 Unknown Rx Benzonatate [Tessalon Perles] 100 mg PO Q8HR PRN #20 capsule 10/05/20 Unknown Rx Prednisone [predniSONE 10 mg 10 mg PO .TAPER #1 tab.ds.pk 10/05/20 Unknown Rx (6-Day Pack, 21 Tabs)] guaiFENesin/CODEINE [Robitussin AC] 10 ml PO Q6HR PRN #40 ml 10/05/20 Unknown Rx Promethazine [Phenergan] 25 mg PO Q6HR PRN #15 tab 11/24/20 Unknown Rx levoFLOXacin [Levaquin TAB] 500 mg PO QDAY 10 Days #10 tablet 11/24/20 Unknown Rx oxyCODONE /ACETAMINOPHEN [Percocet 1 tab PO Q4HR PRN #20 tab 11/24/20 Unknown Rx 5/325] ED Physical Exam - General Limitations: No Limitations General appearance: alert, in no apparent distress, other (Patient appears in severe pain) - Head Head exam: Present: atraumatic, normocephalic - Eye Eye exam: Present: normal appearance - ENT ENT exam: Present: mucous membranes moist - Neck Neck exam: Present: normal inspection, full ROM - Respiratory Respiratory exam: Present: normal lung sounds bilaterally. Absent: respiratory distress, wheezes, rales, rhonchi, stridor - Cardiovascular Cardiovascular Exam: Present: regular rate, normal rhythm, normal heart sounds. Absent: systolic murmur, diastolic murmur, rubs, gallop - GI/Abdominal GI/Abdominal exam: Present: soft, normal bowel sounds. Absent: distended, tenderness, guarding, rebound - Extremities Exam Extremities exam: Present: normal inspection - Neurological Exam Neurological exam: Present: alert, oriented X3 - Psychiatric Psychiatric exam: Present: normal affect, normal mood - Skin Skin exam: Present: warm, dry, intact, normal color. Absent: rash ED Course Vital Signs 11/24/20 11/24/20 11/24/20 14:46 16:24 19:21 Temperature 97.7 F Pulse Rate 62 82 Respiratory 20 16 Rate Blood Pressure 126/95 111/71 [Right] O2 Sat by Pulse 96 96 Oximetry ED Medical Decision Making - Lab Data Result diagrams: 11/24/20 15:00 11/24/20 15:00 Laboratory Results - last 24 hr 11/24/20 11/24/20 11/24/20 15:00 15:00 15:00 WBC 15.7 H RBC 4.37 Hgb 14.2 Hct 43.2 H MCV 99 H MCH 33 H MCHC 33 RDW 14.1 Plt Count 212 Lymph % (Auto) 10.5 L [place] % (Auto) 5.5 Eos % (Auto) 1.6 Baso % (Auto) 0.2 Lymph # (Auto) 1.7 [place] # (Auto) 0.9 H Eos # (Auto) 0.3 Baso # (Auto) 0.0 Seg Neutrophils % 82.2 H Seg Neutrophils # 12.9 H PT 11.3 L INR 0.83 L Sodium 140 Potassium 4.5 Chloride 104.9 Carbon Dioxide 30 Anion Gap 10 BUN 18 H Creatinine 0.8 Estimated GFR > 60 BUN/Creatinine Ratio 23 Glucose 122 H Calcium 8.9 Total Bilirubin 0.40 Direct Bilirubin < 0.2 Indirect Bilirubin 0.2 AST 21 ALT 35 Alkaline Phosphatase 62 Total Protein 7.3 Albumin 4.4 Albumin/Globulin Ratio 1.5 Lipase 28 Urine Color Urine Turbidity Urine pH Ur Specific [place] Urine Protein Urine Glucose (UA) Urine Ketones Urine Blood Urine Nitrite Urine Bilirubin Urine Urobilinogen Ur Leukocyte Esterase Urine WBC (Auto) Urine RBC (Auto) U Epithel Cells (Auto) Urine Mucus Urine HCG, Qual 11/24/20 Unknown WBC RBC Hgb Hct MCV MCH MCHC RDW Plt Count Lymph % (Auto) [place] % (Auto) Eos % (Auto) Baso % (Auto) Lymph # (Auto) [place] # (Auto) Eos # (Auto) Baso # (Auto) Seg Neutrophils % Seg Neutrophils # PT INR Sodium Potassium Chloride Carbon Dioxide Anion Gap BUN Creatinine Estimated GFR BUN/Creatinine Ratio Glucose Calcium Total Bilirubin Direct Bilirubin Indirect Bilirubin AST ALT Alkaline Phosphatase Total Protein Albumin Albumin/Globulin Ratio Lipase Urine Color Yellow Urine Turbidity Slightly-cloudy Urine pH 7.0 Ur Specific [place] 1.026 Urine Protein 100 mg/dl Urine Glucose (UA) Neg Urine Ketones Neg Urine Blood Mod Urine Nitrite Neg Urine Bilirubin Neg Urine Urobilinogen < 2.0 Ur Leukocyte Esterase Neg Urine WBC (Auto) 2.0 Urine RBC (Auto) 50.0 U Epithel Cells (Auto) 5.0 Urine Mucus 2+ Urine HCG, Qual Negative - Radiology Data Radiology results: report reviewed, image reviewed Chest radiograph: No acute findings Abdominal ultrasound radiology impression: Multiple gallstones, gallbladder is borderline in thickness measuring 2.8 suggestion of wall edema CBD 1.8 mm left kidney's probable small nonobstructing stones - Medical Decision Making Acute cholecystitis: Patient desired to be discharged home for outpatient evaluation by surgeon. Dr. Gray did recommend offering inpatient treatment. Dr. Gray will follow up with patient in outpatient setting. Dr. Gray general surgeon on-call recommended Levaquin as antibiotic of choice. Patient was prescribed Percocet and Levaquin. With several doses of IV analgesia, patient was finally comfortable Patient did exhibit leukocytosis. Hepatic panel within normal limits including alk phos total bilirubin AST ALT. Critical care attestation.: If time is entered above; I have spent that time in minutes in the direct care of this critically ill patient, excluding procedure time. ED Disposition Clinical Impression: Acute cholecystitis Disposition: [id number] TO HOME OR SELFCARE Is pt being admited?: No Does the pt Need Aspirin: No Condition: Stable Instructions: Abdominal Pain (ED), Cholecystitis, [id number] Prescriptions: levoFLOXacin [Levaquin TAB] 500 mg PO QDAY 10 Days #10 tablet oxyCODONE /ACETAMINOPHEN [Percocet 5/325] 1 tab PO Q4HR PRN #20 tab PRN Reason: Pain , Severe (7-10) Promethazine [Phenergan] 25 mg PO Q6HR PRN #15 tab PRN Reason: Nausea Referrals: EDUAR GRAY MD [Staff Physician] - 3-5 Days
[2020-11-24] MEDS ORDERED: oxyCODONE /ACETAMINOPHEN 5-325MG TAB PO ONE (20:39)
[2020-11-24] MEDS ORDERED: ONDANSETRON 4 MG ODT TAB PO ONE (20:39)
[2020-11-24 20:58] VITALS: BP 97/80
== END 2020-11-24 21:02 | disposition home or self-care (01) ==
LOC: ED 14:36
DX: K81.0 Acute cholecystitis (principal); G40.909 Epilepsy, unspecified, not intractable, without status epilepticus; J45.909 Unspecified asthma, uncomplicated; Z90.710 Acquired absence of both cervix and uterus; Z79.899 Other long term (current) drug therapy; Z88.8 Allergy status to other drugs, medicaments and biological substances
CPT/HCPCS: 36415; 71046; 76700; 80048; 80076; 81001; 81025; 83690; 85025; 85610; 93005; 96374; 96375; 96376; 99284; J1170; J2405; Q0162

== ENCOUNTER 2020-12-08 23:16 | Observation (INO) | payer SELFPAY ==
--- NOTE | 2020-12-08 23:41 | Event Note ---
ED Screening Note Date of service: 12/08/20 Time: 23:39 ED Screening Note: This is a 40-year-old female with history of alcoholic pancreatitis, asthma, ovarian cyst who presents with sharp right upper quadrant pain. Pain for past 2 weeks seen two weeks ago dx cholecystitis, states pain return after completion of abx. She has nausea no vomiting. She denies fever. This initial assessment/diagnostic orders/clinical plan/treatment(s) is/are subject to change based on patients health status, clinical progression and re- assessment by fellow clinical providers in the ED. Further treatment and workup at subsequent clinical providers discretion. Patient/guardian urged not to elope from the ED as their condition may be serious if not clinically assessed and managed. Initial orders include: cmp, cbc, lipase, ua,
[2020-12-08 23:52] LABS: Basophils % (Auto) 0.4 % (0.0-1.8); Eosinophils # (Auto) 0.3 K/mm3 (0.0-0.4); Eosinophils % (Auto) 3.3 % (0.0-4.3); Hematocrit 38.9 % (30.3-42.9); Hemoglobin 13.4 gm/dl (10.1-14.3); Lymphocytes # (Auto) 3.4 K/mm3 (1.2-5.4); Lymphocytes % (Auto) 35.3 % (13.4-35.0); Mean Corpuscular HGB Conc 34 % (30-34); Mean Corpuscular Volume 97 fl (79-97); Monocytes # (Auto) 0.8 K/mm3 (0.0-0.8); Monocytes % (Auto) 8.1 % (0.0-7.3); Platelet Count 213 K/mm3 (140-440); Red Cell Distribution Width 13.9 % (13.2-15.2)
[2020-12-09 00:02] LABS: Bilirubin,Urine NEG (Negative); Blood,Urine LG (Negative); Color,Urine Yellow (Yellow); Mucus,Urine 1+ /HPF; Urobilinogen,Urine < 2.0 mg/dL (<2.0)
[2020-12-09 00:12] LABS: Alanine Aminotransferase 27 units/L (7-56); Albumin 4.3 g/dL (3.9-5); BUN/Creatinine Ratio 24; Blood Urea Nitrogen 24 mg/dL (7-17); Calcium 9.5 mg/dL (8.4-10.2); Hemolysis Index 8
--- NOTE | 2020-12-09 00:16 | Emergency Department Report ---
ED Abdominal Pain HPI - General Chief Complaint: Abdominal Pain Stated Complaint: ABDOMINAL PAIN PUI?: No Time Seen by Provider: 12/09/20 00:01 Source: patient Mode of arrival: Ambulatory Limitations: No Limitations - History of Present Illness Initial Comments: Patient is a 40-year-old female that presents emergency room with complaints of abdominal pain. Patient states that her abdominal pain is her right upper quadrant. Patient states that started 2 days ago. Patient states that she was seen here for possible gallbladder infection 10 days ago. Patient states that they recommended admission but she did not want to do it so they gave her oral antibiotics and sent her home. Patient states she never saw the surgeon. Patient states 2 days after she completed the antibiotics the pain returned. Patient states that the pain is in her right upper quadrant rating to her right shoulder blades. Patient is also complaining of nausea and vomiting. Patient denies fever and chills. Patient denies cough. Patient denies recent travel. Patient denies recent international travel. Patient denies exposure to the novel coronavirus. Patient denies sick contacts. Patient denies fever and chills. Patient denies cough. Patient denies diarrhea. Patient denies coming in contact with anybody with symptoms of the novel coronavirus. MD Complaint: abdominal pain -: Sudden Location: RUQ Radiation: other (Right shoulder) Migration to: no migration Severity: severe Severity scale (0 -10): 10 Quality: stabbing Consistency: constant Improves With: rest Worsens With: vomiting, movement Associated Symptoms: nausea, vomiting. denies: diarrhea, fever, chills, constipation, dysuria, hematemesis, hematochezia, melena, hematuria - Related Data LMP (females 10-50): last week Home Medications Medication Instructions Recorded Confirmed Last Taken Gabapentin [Neurontin] 800 mg PO Q8H 05/04/15 03/10/17 1 Day Ago ~03/09/17 Previous Rx's Medication Instructions Recorded Last Taken Type Amoxicillin 1,000 mg PO BID #40 capsule 03/10/17 Unknown Rx traMADoL [Ultram 50 MG tab] 50 mg PO Q4HR PRN #30 tablet 03/10/17 Unknown Rx Amoxicillin/K Clav Tab [Augmentin 1 tab PO Q12HR #20 tab 05/08/17 Unknown Rx 875 mg] Chlorhexidine Mouthwash [Peridex] 15 ml MM BID #1 bottle 05/08/17 Unknown Rx Clindamycin [Clindamycin CAP] 300 mg PO TID #40 capsule 05/08/17 Unknown Rx HYDROcodone/APAP 7.5-325 [Nicholls 1 each PO Q8HR PRN #14 tablet 05/08/17 Unknown Rx 7.5/325] Acetaminophen/Codeine [Tylenol 1 tab PO Q6H PRN #12 tab 06/04/17 Unknown Rx /Codeine # 3 tab] Cyclobenzaprine [Flexeril] 10 mg PO TID PRN #15 tablet 06/04/17 Unknown Rx Acetaminophen [Tylenol Extra 1,000 mg PO Q6H #24 tablet 06/27/18 Unknown Rx Strength] Ondansetron [Zofran Odt] 4 mg PO Q8HR #9 tab.rapdis 06/27/18 Unknown Rx ALBUTEROL Inhaler(NF) [VENTOLIN 2 puff IH Q4-6H PRN #1 inha 12/31/18 Unknown Rx Inhaler(NF)] Sulfamethoxazole/Trimethoprim 1 each PO BID #14 tablet 12/31/18 Unknown Rx [Bactrim DS TAB] Albuterol Mdi (or & Nicu Only) 2 puff IH QID PRN #8.5 gram 10/15/19 Unknown Rx [ProAir HFA Inhaler] Prednisone [predniSONE 10 mg 10 mg PO .TAPER #1 tab.ds.pk 10/15/19 Unknown Rx (6-Day Pack, 21 Tabs)] predniSONE 10 mg PO QDAY #4 tab 11/13/19 Unknown Rx ALBUTEROL NEB's [Proventil 0.083% 2.5 mg IH TID PRN #30 neb 10/05/20 Unknown Rx NEBS] Albuterol Sulfate [Proventil Hfa] 2 inhalation IH Q4HR PRN #1 10/05/20 Unknown Rx hfa.aer.ad Azithromycin [Zithromax Z-ELIANA] 1 dose PO DAILY 5 Days tab 10/05/20 Unknown Rx Benzonatate [Tessalon Perles] 100 mg PO Q8HR PRN #20 capsule 10/05/20 Unknown Rx Prednisone [predniSONE 10 mg 10 mg PO .TAPER #1 tab.ds.pk 10/05/20 Unknown Rx (6-Day Pack, 21 Tabs)] guaiFENesin/CODEINE [Robitussin AC] 10 ml PO Q6HR PRN #40 ml 10/05/20 Unknown Rx Promethazine [Phenergan] 25 mg PO Q6HR PRN #15 tab 11/24/20 Unknown Rx levoFLOXacin [Levaquin TAB] 500 mg PO QDAY 10 Days #10 tablet 11/24/20 Unknown Rx oxyCODONE /ACETAMINOPHEN [Percocet 1 tab PO Q4HR PRN #20 tab 11/24/20 Unknown Rx 5/325] Allergies Allergy/AdvReac Type Severity Reaction Status Date / Time ketorolac tromethamine Allergy Rash Verified 09/05/15 13:30 [From Toradol] ED Review of Systems ROS: Stated complaint: ABDOMINAL PAIN Other details as noted in HPI Constitutional: denies: chills, fever Eyes: denies: eye pain, eye discharge, vision change ENT: denies: ear pain, throat pain Respiratory: denies: cough, shortness of breath, wheezing Cardiovascular: denies: chest pain, palpitations Endocrine: no symptoms reported Gastrointestinal: abdominal pain, nausea, vomiting. denies: diarrhea Genitourinary: denies: urgency, dysuria, discharge Musculoskeletal: denies: back pain, joint swelling, arthralgia Skin: denies: rash, lesions Neurological: denies: headache, weakness, paresthesias Psychiatric: denies: anxiety, depression Hematological/Lymphatic: denies: easy bleeding, easy bruising ED Past Medical Hx - Past Medical History Previous Medical History?: Yes Hx Seizures: Yes (ETOH withdrawals) Hx Asthma: Yes Additional medical history: Pancreatitis, cyst on right ovary, Vaginal delivery x 2. Gall bladder disease - Surgical History Past Surgical History?: Yes Additional Surgical History: tubaligation - Family History Family history: no significant - Social History Smoking Status: Current Every Day Smoker Substance Use Type: None - Medications Home Medications: Home Medications Medication Instructions Recorded Confirmed Last Taken Type Gabapentin [Neurontin] 800 mg PO Q8H 05/04/15 03/10/17 1 Day Ago History ~03/09/17 Amoxicillin 1,000 mg PO BID #40 capsule 03/10/17 Unknown Rx traMADoL [Ultram 50 MG tab] 50 mg PO Q4HR PRN #30 tablet 03/10/17 Unknown Rx Amoxicillin/K Clav Tab [Augmentin 1 tab PO Q12HR #20 tab 05/08/17 Unknown Rx 875 mg] Chlorhexidine Mouthwash [Peridex] 15 ml MM BID #1 bottle 05/08/17 Unknown Rx Clindamycin [Clindamycin CAP] 300 mg PO TID #40 capsule 05/08/17 Unknown Rx HYDROcodone/APAP 7.5-325 [Nicholls 1 each PO Q8HR PRN #14 tablet 05/08/17 Unknown Rx 7.5/325] Acetaminophen/Codeine [Tylenol 1 tab PO Q6H PRN #12 tab 06/04/17 Unknown Rx /Codeine # 3 tab] Cyclobenzaprine [Flexeril] 10 mg PO TID PRN #15 tablet 06/04/17 Unknown Rx Acetaminophen [Tylenol Extra 1,000 mg PO Q6H #24 tablet 06/27/18 Unknown Rx Strength] Ondansetron [Zofran Odt] 4 mg PO Q8HR #9 tab.rapdis 06/27/18 Unknown Rx ALBUTEROL Inhaler(NF) [VENTOLIN 2 puff IH Q4-6H PRN #1 inha 12/31/18 Unknown Rx Inhaler(NF)] Sulfamethoxazole/Trimethoprim 1 each PO BID #14 tablet 12/31/18 Unknown Rx [Bactrim DS TAB] Albuterol Mdi (or & Nicu Only) 2 puff IH QID PRN #8.5 gram 10/15/19 Unknown Rx [ProAir HFA Inhaler] Prednisone [predniSONE 10 mg 10 mg PO .TAPER #1 tab.ds.pk 10/15/19 Unknown Rx (6-Day Pack, 21 Tabs)] predniSONE 10 mg PO QDAY #4 tab 11/13/19 Unknown Rx ALBUTEROL NEB's [Proventil 0.083% 2.5 mg IH TID PRN #30 neb 10/05/20 Unknown Rx NEBS] Albuterol Sulfate [Proventil Hfa] 2 inhalation IH Q4HR PRN #1 10/05/20 Unknown Rx hfa.aer.ad Azithromycin [Zithromax Z-ELIANA] 1 dose PO DAILY 5 Days tab 10/05/20 Unknown Rx Benzonatate [Tessalon Perles] 100 mg PO Q8HR PRN #20 capsule 10/05/20 Unknown Rx Prednisone [predniSONE 10 mg 10 mg PO .TAPER #1 tab.ds.pk 10/05/20 Unknown Rx (6-Day Pack, 21 Tabs)] guaiFENesin/CODEINE [Robitussin AC] 10 ml PO Q6HR PRN #40 ml 10/05/20 Unknown Rx Promethazine [Phenergan] 25 mg PO Q6HR PRN #15 tab 11/24/20 Unknown Rx levoFLOXacin [Levaquin TAB] 500 mg PO QDAY 10 Days #10 tablet 11/24/20 Unknown Rx oxyCODONE /ACETAMINOPHEN [Percocet 1 tab PO Q4HR PRN #20 tab 11/24/20 Unknown Rx 5/325] ED Physical Exam - General Limitations: No Limitations General appearance: alert, in no apparent distress - Head Head exam: Present: atraumatic, normocephalic - Eye Eye exam: Present: normal appearance - ENT ENT exam: Present: mucous membranes moist - Neck Neck exam: Present: normal inspection - Respiratory Respiratory exam: Present: normal lung sounds bilaterally. Absent: respiratory distress - Cardiovascular Cardiovascular Exam: Present: regular rate, normal rhythm. Absent: systolic mu rmur, diastolic murmur, rubs, gallop - GI/Abdominal GI/Abdominal exam: Present: soft, tenderness (Right upper quadrant tenderness), normal bowel sounds - Extremities Exam Extremities exam: Present: normal inspection - Back Exam Back exam: Present: normal inspection - Neurological Exam Neurological exam: Present: alert, oriented X3 - Psychiatric Psychiatric exam: Present: normal affect, normal mood - Skin Skin exam: Present: warm, dry, intact, normal color. Absent: rash ED Course Vital Signs 12/08/20 12/09/20 12/09/20 23:36 00:50 01:19 Temperature 98.1 F Pulse Rate 87 66 86 Respiratory 18 17 16 Rate Blood Pressure 153/87 Blood Pressure 110/77 [Left] Blood Pressure 124/82 [Right] O2 Sat by Pulse 98 99 97 Oximetry - Reevaluation(s) Reevaluation #1: Patient still complaining of severe pain. Patient will be given another Dilaud id. Patient still complaining of nausea patient will be given Phenergan. 12/09/20 01:25 Reevaluation #2: Patient is still complaining of severe pain. Patient will be given Reglan and fentanyl. 12/09/20 02:20 Reevaluation #3: I discussed all results with patient. I discussed plan of care with patient. Patient agrees with plan of care and admission. Patient to be admitted to the hospitalist service. 12/09/20 02:26 - Consultations Consultation #1: I discussed case with general surgery, Dr. Nguyen. General surgery states to admit the patient to the hospital service and will see her in the morning and Zosyn and IV fluids and n.p.o. now 12/09/20 02:26 Consultation #2: Hospitalist consulted for admission. Hospitalist to admit patient. 12/09/20 02:28 ED Medical Decision Making - Lab Data Result diagrams: 12/08/20 23:40 12/08/20 23:40 - Radiology Data Radiology results: report reviewed Ultrasound results from 11/24/2020 ULTRASOUND ABDOMEN, COMPLETE INDICATION: Right upper quadrant abdominal pain. COMPARISON: None available. FINDINGS: Pancreas: Normal. Abdominal Aorta: Normal. IVC: Normal. Liver: Normal. Gallbladder: Multiple gallstones. The gallbladder is borderline in thickness measuring 2.8 mm. There is a suggestion of wall edema on one image. Bile ducts: Normal. Common Bile Duct measures 1.8 mm. Right Kidney: Normal. Left Kidney: Probable small nonobstructing stones. Spleen: Normal. Free fluid: None. Additional Findings: None. IMPRESSION: 1. Centimeters with possible cholecystitis. 2. Small nonobstructing left renal stones. CT ABDOMEN AND PELVIS WITH CONTRAST INDICATION: R.U.Q. abdominal pain x 2 days.. TECHNIQUE: Axial CT images were obtained through the abdomen and pelvis after 100 cc Omni [address] scans at this location are performed using CT dose reduction for ALARA by means of automated exposure control. COMPARISON: CT abdomen pelvis 06/27/2018 FINDINGS: LOWER CHEST: No significant abnormality. LIVER: No significant abnormality. GALLBLADDER: Calcified gallstones BILE DUCTS: No significant abnormality. PANCREAS: No significant abnormality. SPLEEN: No significant abnormality. ADRENALS: No significant abnormality. RIGHT KIDNEY and URETER: No significant abnormality. LEFT KIDNEY and URETER: No significant abnormality. STOMACH and SMALL BOWEL: No significant abnormality. COLON: No significant abnormality. APPENDIX: No significant abnormality. PERITONEUM: No free fluid. No free air. No fluid collection. LYMPH NODES: No significant adenopathy. AORTA and ARTERIES: No significant abnormality. IVC and VEINS: No significant abnormality. URINARY BLADDER: No significant abnormality. REPRODUCTIVE ORGANS: No significant abnormality. ADDITIONAL FINDINGS: None. SKELETAL SYSTEM: No significant abnormality. IMPRESSION: 1. Cholelithiasis without CT evidence for cholecystitis - Medical Decision Making Patient is a 40-year-old female that presents emergency room for repeat visit for right upper quadrant abdominal pain. Patient symptoms are consistent with cholecystitis. Patient was here 10 days ago and had ultrasound which showed findings consistent with cholecystitis. Patient at that time did not want to be admitted to the hospital and left the hospital AGAINST MEDICAL ADVICE and with oral antibiotics. Patient's pain improved with oral antibiotics and then came back worse after the antibiotics completed. Patient had a CT scan which shows cholelithiasis. Patient has already had multiple doses of pain medication is still continues to be in severe pain. Patient pain is intractable. Patient has symptomatic cholelithiasis. Patient admitted to the hospital service for further evaluation and treatment. Prior to admission, general surgery was consulted and recommendations were received. - Differential Diagnosis Cholelithiasis, cholecystitis, abdominal pain, gastritis, Critical Care Time: Yes Critical care time in (mins) excluding proc time.: 35 Critical care attestation.: If time is entered above; I have spent that time in minutes in the direct care of this critically ill patient, excluding procedure time. Critical Care Time: 35 minutes ED Disposition Clinical Impression: Intractable abdominal pain, Cholecystitis Cholelithiasis Qualifiers: Cholelithiasis location: gallbladder Cholecystitis presence: with cholecystitis Cholecystitis acuity: acute Biliary obstruction: without biliary obstruction Qualified Code(s): K80.00 - Calculus of gallbladder with acute cholecystitis without obstruction Abdominal pain Qualifiers: Abdominal location: right upper quadrant Qualified Code(s): R10.11 - Right upper quadrant pain Disposition: OP ADMIT IP TO THIS HOSP Is pt being admited?: Yes Does the pt Need Aspirin: No Condition: Critical Instructions: Abdominal Pain (ED) Time of Disposition: 02:32
[2020-12-09] MEDS ORDERED: HYDROmorphone 1 MG/1 ML INJ IV ONE ×2 (00:26→01:21)
[2020-12-09] MEDS ORDERED: ONDANSETRON 4 MG/2 ML INJ IV ONE (00:26)
[2020-12-09] MEDS ORDERED: SODIUM CHLORIDE 0.9% 1000 ML 1,000 ML IV ONE ×2 (00:27→02:29)
[2020-12-09 00:31] LABS: HCG Qualitative,Urine Negative (Negative)
[2020-12-09] MEDS ORDERED: PROMETHAZINE 25 MG RECT SUPP PR ONE (01:21)
--- NOTE | 2020-12-09 02:19 | Cat Scan Report ---
CT ABDOMEN AND PELVIS WITH CONTRAST INDICATION: R.U.Q. abdominal pain x 2 days.. TECHNIQUE: Axial CT images were obtained through the abdomen and pelvis after 100 cc Omni [address] scans at this location are performed using CT dose reduction for ALARA by means of automated expos ure control. COMPARISON: CT abdomen pelvis 06/27/2018 FINDINGS: LOWER CHEST: No significant abnormality. LIVER: No significant abnormality. GALLBLADDER: Calcified gallstones BILE DUCTS: No significant abnormality. PANCREAS: No significant abnormality. SPLEEN: No significant abnormality. ADRENALS: No significant abnormality. RIGHT KIDNEY and URETER: No significant abnormality. LEFT KIDNEY and URETER: No significant abnormality. STOMACH and SMALL BOWEL: No significant abnormality. COLON: No significant abnormality. APPENDIX: No significant abnormality. PERITONEUM: No free fluid. No free air. No fluid collection. LYMPH NODES: No significant adenopathy. AORTA and ARTERIES: No significant abnormality. IVC and VEINS: No significant abnormality. URINARY BLADDER: No significant abnormality. REPRODUCTIVE ORGANS: No significant abnormality. ADDITIONAL FINDINGS: None. SKELETAL SYSTEM: No significant abnormality. IMPRESSION: 1. Cholelithiasis without CT evidence for cholecystitis Signer Name: Prabhakar Auguste MD Signed: 12/09/2020 2:14 AM Workstation Name: [id number]
[2020-12-09] MEDS ORDERED: METOCLOPRAMIDE 10 MG/2 ML INJ IV ONE (02:23)
[2020-12-09] MEDS ORDERED: fentaNYL 100 MCG/2 ML INJ IV ONE (02:23)
[2020-12-09] MEDS ORDERED: PIPERACIL/TAZOBACTA 4.5/NS 100 4.5 GM/100 ML VIAL IV ONE (02:27)
[2020-12-09] MEDS ORDERED: ACETAMINOPHEN 325 MG TAB PO PRN (02:31)
[2020-12-09] MEDS ORDERED: ONDANSETRON 4 MG/2 ML INJ IV PRN ×2 (02:31→15:10)
--- NOTE | 2020-12-09 02:42 | History and Physical Report ---
History of Present Illness Date of examination: 12/09/20 Date of admission: 11/08/2020 Chief complaint: Abdominal Pain History of present illness: 3-year-old female with known history of seizure disorder, asthma and pancreatitis in the past presenting to the emergency room today complaining of abdominal pain. Abdominal pain is said to be more in the upper abdomen. This has been ongoing for the past 2 days. Patient was seen here in this facility about 10 days ago and was diagnosed with possible cholecystitis. Admission was recommended but patient opted to be on outpatient antibiotics and was sent home. Patient has since completed the antibiotics but indicates that her pain has somehow returned. On a scale of 10 pain was 10/10 in severity radiating towards the right upper shoulder. Patient has had associated nausea and vomiting, no diarrhea, no fever or chills, no chest pain or shortness of breath. Patient denies any sick contacts and no recent travel, denies any contact with anyone with COVID-19. Work-up in the emergency room today, CT of the abdomen and pelvis reveals cholelithiasis. General surgeon on-call has been notified by the ER physician. Past History Past Medical History: seizures, other (Asthma, H/O Pancreatitis,Ovarian cyst) Past Surgical History: Other (Tubal Ligation,Vaginal delivery x2,) Social history: smoking (Current daily smoker), alcohol abuse Family history: no significant family history Medications and Allergies Allergies Allergy/AdvReac Type Severity Reaction Status Date / Time ketorolac tromethamine Allergy Rash Verified 09/05/15 13:30 [From Toradol] Home Medications Medication Instructions Recorded Confirmed Last Taken Type Gabapentin [Neurontin] 800 mg PO Q8H 05/04/15 03/10/17 1 Day Ago History ~03/09/17 Amoxicillin 1,000 mg PO BID #40 capsule 03/10/17 Unknown Rx traMADoL [Ultram 50 MG tab] 50 mg PO Q4HR PRN #30 tablet 03/10/17 Unknown Rx Amoxicillin/K Clav Tab [Augmentin 1 tab PO Q12HR #20 tab 05/08/17 Unknown Rx 875 mg] Chlorhexidine Mouthwash [Peridex] 15 ml MM BID #1 bottle 05/08/17 Unknown Rx Clindamycin [Clindamycin CAP] 300 mg PO TID #40 capsule 05/08/17 Unknown Rx HYDROcodone/APAP 7.5-325 [Hominy 1 each PO Q8HR PRN #14 tablet 05/08/17 Unknown Rx 7.5/325] Acetaminophen/Codeine [Tylenol 1 tab PO Q6H PRN #12 tab 06/04/17 Unknown Rx /Codeine # 3 tab] Cyclobenzaprine [Flexeril] 10 mg PO TID PRN #15 tablet 06/04/17 Unknown Rx Acetaminophen [Tylenol Extra 1,000 mg PO Q6H #24 tablet 06/27/18 Unknown Rx Strength] Ondansetron [Zofran Odt] 4 mg PO Q8HR #9 tab.rapdis 06/27/18 Unknown Rx ALBUTEROL Inhaler(NF) [VENTOLIN 2 puff IH Q4-6H PRN #1 inha 12/31/18 Unknown Rx Inhaler(NF)] Sulfamethoxazole/Trimethoprim 1 each PO BID #14 tablet 12/31/18 Unknown Rx [Bactrim DS TAB] Albuterol Mdi (or & Nicu Only) 2 puff IH QID PRN #8.5 gram 10/15/19 Unknown Rx [ProAir HFA Inhaler] Prednisone [predniSONE 10 mg 10 mg PO .TAPER #1 tab.ds.pk 10/15/19 Unknown Rx (6-Day Pack, 21 Tabs)] predniSONE 10 mg PO QDAY #4 tab 11/13/19 Unknown Rx ALBUTEROL NEB's [Proventil 0.083% 2.5 mg IH TID PRN #30 neb 10/05/20 Unknown Rx NEBS] Albuterol Sulfate [Proventil Hfa] 2 inhalation IH Q4HR PRN #1 10/05/20 Unknown Rx hfa.aer.ad Azithromycin [Zithromax Z-ELIANA] 1 dose PO DAILY 5 Days tab 10/05/20 Unknown Rx Benzonatate [Tessalon Perles] 100 mg PO Q8HR PRN #20 capsule 10/05/20 Unknown Rx Prednisone [predniSONE 10 mg 10 mg PO .TAPER #1 tab.ds.pk 10/05/20 Unknown Rx (6-Day Pack, 21 Tabs)] guaiFENesin/CODEINE [Robitussin AC] 10 ml PO Q6HR PRN #40 ml 10/05/20 Unknown Rx Promethazine [Phenergan] 25 mg PO Q6HR PRN #15 tab 11/24/20 Unknown Rx levoFLOXacin [Levaquin TAB] 500 mg PO QDAY 10 Days #10 tablet 11/24/20 Unknown Rx oxyCODONE /ACETAMINOPHEN [Percocet 1 tab PO Q4HR PRN #20 tab 11/24/20 Unknown Rx 5/325] Active Meds: Active Medications Acetaminophen (Acetaminophen 325 Mg Tab) 650 mg PO Q4H PRN PRN Reason: Pain MILD(1-3)/Fever >100.5/GRAHAM Piperacillin Sod/Tazobactam Sod (Zosyn/Ns 4.5gm/100ml) 4.5 gm in 100 mls @ 200 mls/hr IV ONCE ONE; Protocol Stop: 12/09/20 02:56 Last Admin: 12/09/20 02:31 Dose: 200 mls/hr Documented by: Sodium Chloride (Nacl 0.9% 1000 Ml) 1,000 mls @ 250 mls/hr IV ONCE ONE Stop: 12/09/20 06:28 Last Admin: 12/09/20 02:31 Dose: 250 mls/hr Documented by: Sodium Chloride (Nacl 0.9% 1000 Ml) 1,000 mls @ 125 mls/hr IV DIRECT JOSIAS Piperacillin Sod/Tazobactam Sod (Zosyn/Ns 4.5gm/100ml) 4.5 gm in 100 mls @ 200 mls/hr IV Q8H JOSIAS; Protocol Ondansetron HCl (Ondansetron 4 Mg/2 Ml Inj) 4 mg IV Q8H PRN PRN Reason: Nausea And Vomiting Sodium Chloride (Sodium Chloride 0.9% 10 Ml Flush Syringe) 10 ml IV BID JOSIAS Sodium Chloride (Sodium Chloride 0.9% 10 Ml Flush Syringe) 10 ml IV PRN PRN PRN Reason: LINE FLUSH Review of Systems Constitutional: no fever, no chills Ears, nose, mouth and throat: no nasal congestion, no sore throat Cardiovascular: no chest pain, no palpitations Respiratory: no cough, no shortness of breath Gastrointestinal: abdominal pain, nausea, vomiting, no diarrhea, no hematemesis, no coffee ground emesis Genitourinary Female: no flank pain, no dysuria, no hematuria Musculoskeletal: no neck pain, no low back pain Integumentary: no rash, no pruritis Neurological: no headaches, no confusion Psychiatric: no anxiety, no depression Exam - Constitutional Vitals: Temp Pulse Resp BP Pulse Ox 98.1 F 86 16 110/77 97 12/08/20 23:36 12/09/20 01:19 12/09/20 01:19 12/09/20 01:19 12/09/20 01:19 General appearance: Present: no acute distress, well-nourished - EENT Eyes: Present: PERRL, EOM intact. Absent: scleral icterus ENT: hearing intact, clear oral mucosa, dentition normal - Neck Neck: Present: supple, normal ROM - Respiratory Respiratory effort: normal Respiratory: bilateral: CTA - Cardiovascular Rhythm: regular Heart Sounds: Present: S1 & S2. Absent: gallop, systolic murmur, diastolic murmur, rub, click - Extremities Extremities: no ischemia, pulses intact, pulses symmetrical, No edema, normal temperature, normal color, Full ROM Peripheral Pulses: within normal limits - Abdominal General gastrointestinal: Present: soft, tender (Epigastric /Right upper quadrant tenderness. Monimal guarding. No rebound tenderness), non-distended. A bsent: mass - Integumentary Integumentary: Present: clear, warm, dry. Absent: rash - Musculoskeletal Musculoskeletal: strength equal bilaterally - Psychiatric Psychiatric: appropriate mood/affect, intact judgment & insight, memory intact, cooperative - Neurologic Neurologic: CNII-XII intact, no focal deficits, moves all extremities Results - Labs CBC & Chem 7: 12/08/20 23:40 12/08/20 23:40 Labs: Abnormal lab results 12/08/20 12/08/20 12/08/20 Range/Units 23:40 23:40 23:40 MCH 34 H (28-32) pg Lymph % (Auto) 35.3 H (13.4-35.0) % [place] % (Auto) 8.1 H (0.0-7.3) % BUN 24 H (7-17) mg/dL Ur Specific [place] 1.038 H (1.003-1.030) Assessment and Plan - Patient Problems (1) Cholelithiasis Current Visit: Yes Status: Acute Qualifiers: Cholelithiasis location: gallbladder Cholecystitis presence: with cholecystitis Cholecystitis acuity: acute Biliary obstruction: without biliary obstruction Qualified Code(s): K80.00 - Calculus of gallbladder with acute cholecystitis without obstruction Plan to address problem: Patient placed on IV fluid and analgesic medication. General surgeon has been consulted for evaluation. Patient also placed on empiric IV antibiotics. (2) Abdominal pain Current Visit: Yes Status: Acute Qualifiers: Abdominal location: right upper quadrant Qualified Code(s): R10.11 - Right upper quadrant pain Plan to address problem: Possibly secondary to the cholelithiasis. Patient will be made n.p.o. We will continue analgesic medication and IV fluid. (3) DVT prophylaxis Current Visit: Yes Status: Acute Plan to address problem: Patient placed on sequential compression device. (4) Full code status Current Visit: Yes Status: Acute Plan to address problem: Patient is a full code.
[2020-12-09] MEDS: SODIUM CHLORIDE 0.9% 1000 ML 1,000 ML IV SCH ×3 (05:16→20:44)
[2020-12-09] MEDS: HYDROmorphone 1 MG/1 ML INJ IV PRN ×4 (08:50→19:15)
[2020-12-09] MEDS ORDERED: PIPERACIL/TAZOBACTA 4.5/NS 100 4.5 GM/100 ML VIAL IV SCH (10:00)
--- NOTE | 2020-12-09 11:46 | Consultation ---
History of Present Illness Consult date: 12/09/20 Chief complaint: RUQ pain X 10 days - History of present illness History of present illness: 40 yo female with the above CC associated with nausea and vomiting. Pain radiates to the right scapula. Seen in ED 10 days ago with admission recommended but pt refused and pt was therefore discharged on oral antibiotics. The pain has now returned. Past History Past Medical History: seizures, other (Asthma, H/O Pancreatitis,Ovarian cyst) Past Surgical History: Other (Tubal Ligation,Vaginal delivery x2,) Social history: smoking (Current daily smoker), alcohol abuse Family history: no significant family history Medications and Allergies Allergies Allergy/AdvReac Type Severity Reaction Status Date / Time ketorolac tromethamine Allergy Rash Verified 09/05/15 13:30 [From Toradol] Home Medications Medication Instructions Recorded Confirmed Last Taken Type Gabapentin [Neurontin] 800 mg PO Q8H 05/04/15 03/10/17 1 Day Ago History ~03/09/17 Amoxicillin 1,000 mg PO BID #40 capsule 03/10/17 Unknown Rx traMADoL [Ultram 50 MG tab] 50 mg PO Q4HR PRN #30 tablet 03/10/17 Unknown Rx Amoxicillin/K Clav Tab [Augmentin 1 tab PO Q12HR #20 tab 05/08/17 Unknown Rx 875 mg] Chlorhexidine Mouthwash [Peridex] 15 ml MM BID #1 bottle 05/08/17 Unknown Rx Clindamycin [Clindamycin CAP] 300 mg PO TID #40 capsule 05/08/17 Unknown Rx HYDROcodone/APAP 7.5-325 [[place] 1 each PO Q8HR PRN #14 tablet 05/08/17 Unknown Rx 7.5/325] Acetaminophen/Codeine [Tylenol 1 tab PO Q6H PRN #12 tab 06/04/17 Unknown Rx /Codeine # 3 tab] Cyclobenzaprine [Flexeril] 10 mg PO TID PRN #15 tablet 06/04/17 Unknown Rx Acetaminophen [Tylenol Extra 1,000 mg PO Q6H #24 tablet 06/27/18 Unknown Rx Strength] Ondansetron [Zofran Odt] 4 mg PO Q8HR #9 tab.rapdis 06/27/18 Unknown Rx ALBUTEROL Inhaler(NF) [VENTOLIN 2 puff IH Q4-6H PRN #1 inha 12/31/18 Unknown Rx Inhaler(NF)] Sulfamethoxazole/Trimethoprim 1 each PO BID #14 tablet 12/31/18 Unknown Rx [Bactrim DS TAB] Albuterol Mdi (or & Nicu Only) 2 puff IH QID PRN #8.5 gram 10/15/19 Unknown Rx [ProAir HFA Inhaler] Prednisone [predniSONE 10 mg 10 mg PO .TAPER #1 tab.ds.pk 10/15/19 Unknown Rx (6-Day Pack, 21 Tabs)] predniSONE 10 mg PO QDAY #4 tab 11/13/19 Unknown Rx ALBUTEROL NEB's [Proventil 0.083% 2.5 mg IH TID PRN #30 neb 10/05/20 Unknown Rx NEBS] Albuterol Sulfate [Proventil Hfa] 2 inhalation IH Q4HR PRN #1 10/05/20 Unknown Rx hfa.aer.ad Azithromycin [Zithromax Z-ELIANA] 1 dose PO DAILY 5 Days tab 10/05/20 Unknown Rx Benzonatate [Tessalon Perles] 100 mg PO Q8HR PRN #20 capsule 10/05/20 Unknown Rx Prednisone [predniSONE 10 mg 10 mg PO .TAPER #1 tab.ds.pk 10/05/20 Unknown Rx (6-Day Pack, 21 Tabs)] guaiFENesin/CODEINE [Robitussin AC] 10 ml PO Q6HR PRN #40 ml 10/05/20 Unknown Rx Promethazine [Phenergan] 25 mg PO Q6HR PRN #15 tab 11/24/20 Unknown Rx levoFLOXacin [Levaquin TAB] 500 mg PO QDAY 10 Days #10 tablet 11/24/20 Unknown Rx oxyCODONE /ACETAMINOPHEN [Percocet 1 tab PO Q4HR PRN #20 tab 11/24/20 Unknown Rx 5/325] Active Meds: Active Medications Acetaminophen (Acetaminophen 325 Mg Tab) 650 mg PO Q4H PRN PRN Reason: Pain MILD(1-3)/Fever >100.5/GRAHAM Hydromorphone HCl (Hydromorphone 1 Mg/1 Ml Inj) 1 mg IV Q4H PRN PRN Reason: Pain , Severe (7-10) Last Admin: 12/09/20 08:50 Dose: 1 mg Documented by: Sodium Chloride (Nacl 0.9% 1000 Ml) 1,000 mls @ 125 mls/hr IV DIRECT JOSIAS Last Admin: 12/09/20 05:16 Dose: 125 mls/hr Documented by: Piperacillin Sod/Tazobactam Sod (Zosyn/Ns 4.5gm/100ml) 4.5 gm in 100 mls @ 200 mls/hr IV Q8H JOSIAS; Protocol Ondansetron HCl (Ondansetron 4 Mg/2 Ml Inj) 4 mg IV Q8H PRN PRN Reason: Nausea And Vomiting Sodium Chloride (Sodium Chloride 0.9% 10 Ml Flush Syringe) 10 ml IV BID JOSIAS Sodium Chloride (Sodium Chloride 0.9% 10 Ml Flush Syringe) 10 ml IV PRN PRN PRN Reason: LINE FLUSH Review of Systems All systems: negative (none) Exam Vital Signs Temp Pulse Resp BP Pulse Ox 98.1 F 87 18 153/87 98 12/08/20 23:36 12/08/20 23:36 12/08/20 23:36 12/08/20 23:36 12/08/20 23:36 - General physical appearance Positive: well developed, well nourished, no distress - Eyes Positive: PERRL, normal occular movement - ENT Positive: normal pinna, normal nares, normal mucosa, no hearing loss, no congestion - Neck Positive: no masses, no bruits, trachea midline, no venous distension - Respiratory Positive: normal expansion, normal respiratory effort, clear to auscultation - Cardiovascular Rhythm: regular Heart Sounds: Present: S1 & S2. Absent: rub, click - Extremities Extremities: no ischemia, pulses symmetrical, No edema - Breasts Breasts: normal, no mass, no skin changes - Abdomen Abdomen: Present: soft, bowel sounds normal, other (Mild tenderness in the epigastrium and RUQ without rebound or guarding.). Absent: distended Hernia: none - Genitourinary Male Genitourinary: normal Female Genitourinary: normal - Integumentary no rash, no growths, no abnormal pigmentation - Neurologic Neurologic: alert and oriented to time, place and person, motor strength and sensation are grossly intact - Musculoskeletal normal gait, normal posture - Psychiatric Psychiatric: appropriate mood/affect, intact judgment & insight Results - Labs 12/08/20 23:40 12/08/20 23:40 Abnormal lab results 02/18/21 02/18/21 02/18/21 Range/Units 23:40 23:40 23:40 MCH 34 H (28-32) pg Lymph % (Auto) 35.3 H (13.4-35.0) % [place] % (Auto) 8.1 H (0.0-7.3) % BUN 24 H (7-17) mg/dL Ur Specific [place] 1.038 H (1.003-1.030) Diabetes panel 12/08/20 Range/Units 23:40 Sodium 139 (137-145) mmol/L Potassium 4.3 (3.6-5.0) mmol/L Chloride 102.8 (98-107) mmol/L Carbon Dioxide 26 (22-30) mmol/L BUN 24 H (7-17) mg/dL Creatinine 1.0 (0.6-1.2) mg/dL Glucose 88 (65-100) mg/dL Calcium 9.5 (8.4-10.2) mg/dL AST 22 (5-40) units/L ALT 27 (7-56) units/L Alkaline Phosphatase 55 (35-129) units/L Total Protein 6.6 (6.3-8.2) g/dL Albumin 4.3 (3.9-5) g/dL Calcium panel 12/08/20 Range/Units 23:40 Calcium 9.5 (8.4-10.2) mg/dL Albumin 4.3 (3.9-5) g/dL Pituitary panel 12/08/20 Range/Units 23:40 Sodium 139 (137-145) mmol/L Potassium 4.3 (3.6-5.0) mmol/L Chloride 102.8 (98-107) mmol/L Carbon Dioxide 26 (22-30) mmol/L BUN 24 H (7-17) mg/dL Creatinine 1.0 (0.6-1.2) mg/dL Glucose 88 (65-100) mg/dL Calcium 9.5 (8.4-10.2) mg/dL Adrenal panel 12/08/20 Range/Units 23:40 Sodium 139 (137-145) mmol/L Potassium 4.3 (3.6-5.0) mmol/L Chloride 102.8 (98-107) mmol/L Carbon Dioxide 26 (22-30) mmol/L BUN 24 H (7-17) mg/dL Creatinine 1.0 (0.6-1.2) mg/dL Glucose 88 (65-100) mg/dL Calcium 9.5 (8.4-10.2) mg/dL Total Bilirubin < 0.20 (0.1-1.2) mg/dL AST 22 (5-40) units/L ALT 27 (7-56) units/L Alkaline Phosphatase 55 (35-129) units/L Total Protein 6.6 (6.3-8.2) g/dL Albumin 4.3 (3.9-5) g/dL - Imaging CT scan - abdomen: report reviewed CT scan - pelvis: report reviewed US - abdomen: report reviewed Additional studies: LFT are normal. Assessment and Plan - Patient Problems (1) Cholecystitis Current Visit: Yes Status: Acute Plan to address problem: 1) NPO 2) IV antibiotics 3) Lap carri later today or tomorrow
[2020-12-09] MEDS ORDERED: NICOTINE 21 MG/24 HR PATCH TD ONE (13:23)
--- NOTE | 2020-12-09 15:14 | Anesthesia Consultation ---
Anesthesia Consult and Med Hx Date of service: 12/09/20 - Airway Anesthetic Teeth Evaluation: Good ROM Head & Neck: Adequate Mental/Hyoid Distance: Adequate Mallampati Class: Class II Intubation Access Assessment: Probably Good - Pulmonary Exam CTA: Yes - Cardiac Exam Cardiac Exam: RRR - Pre-Operative Health Status ASA Pre-Surgery Classification: ASA3 Proposed Anesthetic Plan: General - Pulmonary Hx Smoking: Yes Hx Asthma: Yes (albuterol 2x/wk) Hx Respiratory Symptoms: Yes (recent bronchitis s/p abx 1month ago) SOB: No Home Oxygen Therapy: No - Cardiovascular System Hx Hypertension: No (reports BP usually "runs low") Hx Heart Attack/AMI: No Hx Percutaneous Transluminal Coronary Angioplasty (PTCA): No - Central Nervous System Hx Seizures: Yes (has had seziures associated with EtOH withdrawal) CVA: No - Gastrointestinal Hx Gastroesophageal Reflux Disease: Yes - Endocrine Hx Renal Disease: No Hx Liver Disease: No Hx Insulin Dependent Diabetes: No Hx Non-Insulin Dependent Diabetes: No Hx Thyroid Disease: No - Other Systems Hx Alcohol Use: Yes (hx EtOH abuse) Hx Obesity: Yes (BMI 38) - Additional Comments Anesthesia Medical History Comments: No prior GA. No FHx anesthetic complications.
--- NOTE | 2020-12-09 15:15 | Anesthesia Day of Surgery ---
Anesthesia Day of Surgery - Day of Surgery Patient Examined: Yes Patient H&P Reviewed: Yes Patient is NPO: Yes
[2020-12-09] MEDS ORDERED: FAMOTIDINE 20 MG/2 ML INJ IV ONE (15:16)
[2020-12-09] MEDS: fentaNYL 100 MCG/2 ML INJ IV PRN ×2 (15:30→16:00)
[2020-12-09] MEDS ORDERED: HYDROmorphone 2 MG/1 ML INJ IV SCH (15:30)
[2020-12-09] MEDS ORDERED: MIDAZOLAM 2 MG/2 ML INJ IV NR (16:00)
[2020-12-09] MEDS ORDERED: SCOPOLAMINE TRANSDERMAL PATCH 72 HR TD NR (16:00)
[2020-12-09] MEDS ORDERED: propofoL 200 MG/20 ML VIAL IV ONE (17:15)
[2020-12-09] MEDS ORDERED: fentaNYL 100 MCG/2 ML INJ ONE ×2 (17:15→18:53)
[2020-12-09] MEDS ORDERED: ROCURONIUM 50 MG/5 ML INJ IV ONE (17:17)
[2020-12-09] MEDS ORDERED: SUCCINYLCHOLINE CHLORIDE 200 MG/10 ML INJ MDV ONE (17:17)
[2020-12-09] MEDS ORDERED: dexAMETHasone 20 MG/5 ML VIAL ONE (17:17)
[2020-12-09] MEDS ORDERED: ONDANSETRON 4 MG/2 ML INJ ONE (17:17)
[2020-12-09] MEDS ORDERED: NEOSTIGMINE 10MG/10 ML INJ MDV ONE (17:17)
[2020-12-09] MEDS ORDERED: LIDOCAINE MPF (2%) 20 MG/1 ML VIAL 5 ML ONE (17:17)
[2020-12-09] MEDS ORDERED: GLYCOPYRROLATE 0.4 MG/2 ML INJ ONE (17:17)
[2020-12-09] MEDS ORDERED: BUPIVACAINE-EPINEPHRINE/PF 0.5%-1:200,000 (10 ML) VIAL INFILTRATI ONE (17:40)
[2020-12-09] MEDS ORDERED: BUPIVACAINE/PF (0.5%) 5 MG/1 ML 30 ML VIAL INFILTRATI ONE ×2 (17:41→18:08)
[2020-12-09] MEDS ORDERED: KETAMINE/STERILE WATER 50 MG/ML SYRINGE ONE (17:42)
[2020-12-09] MEDS ORDERED: HYDROmorphone 1 MG/1 ML INJ ONE (17:43)
[2020-12-09] MEDS ORDERED: ePHEDrine SULFATE 50 MG/1 ML INJ ONE (17:46)
[2020-12-09] MEDS ORDERED: SODIUM CHLORIDE 0.9% IRRIG SOLN 2000 ML IR ONE (18:08)
--- NOTE | 2020-12-09 18:47 | Event Note ---
Date: 12/09/20 Early a.m. admission Patient evaluated Patient going for lab cholecystectomy by Dr. Nguyen
--- NOTE | 2020-12-09 18:48 | Procedure Note ---
Date of procedure: 12/09/20 Pre-op diagnosis: acute cholecystitis Post-op diagnosis: same Procedure: Laparoscopic cholecystectomy Description of procedure: Pt was placed supine on the OR table. General anesthesia was administered. Abdomen was prepped and draped. Proposed trocar s ites were infiltrated with 10 ml of 0.5% Marcaine with epinephrine. A small infraumbilical incision was made, linea alba incised and the peritoneal cavity carefully entered. A Griffin port was inserted into the peritoneal cavity and pneumoperitoneum established. 10 mm subxiphoid, 5 mm RUQ and 5 mm right lateral ports were inserted into the peritoneal cavity under direct vision without incident. Pt was placed in a reverse Trendelenburg position with her right side rotated upward. Fundus of the gallbladder was grasped and was retracted cephalad. Cystic duct and artery were skeletonized. The neck of the gallbladder was dissected circumferentially and the critical view of safety established. The cystic duct was milked towards the gallbladder. Cystic duct and artery were doubly clipped and divided. Gallbladder was dissected off of its hepatic fossa with the Bovie. Gallbladder and gallstones were placed in an endobag and the endobag removed via the infraumbilical fascial defect. Repeat pneumoperitoneum was established and irrigation fluid used during the procedure was aspirated from Bansal's pouch and the subhepatic space. Upper abdominal ports were removed and there was no bleeding from the port entry sites under low pressure. The infraumbilical fascial defect was closed with 2 interrupted sutures of 0- Vicryl. Skin incisions were closed with running, subcuticular sutures of 4-0 Monocryl. Skin glue was applied to all 4 incisions. Pt tolerated the procedure well. Pt was taken to PACU in stable condition. Anesthesia: GETA Surgeon: CATERINA KATHLEEN Estimated blood loss: 50-100ml Pathology: list (Gallbladder and gallstones) Specimen disposition: to lab Condition: stable Disposition: PACU
--- NOTE | 2020-12-09 19:28 | Post Anesthesia Evaluation ---
- Post Anesthesia Evaluation Patient Participated: Yes Airway Patent: Yes Stable Respiratory Function: Yes Nausea/Vomiting: No Temp > 96.8F: Yes Pain Manageable: Yes Adequeate Hydration: Yes Anesthesia Complications: No
[2020-12-09] MEDS ORDERED: MORPHINE 2 MG/1 ML INJ IV ONE (21:05)
[2020-12-10] MEDS: HYDROmorphone 1 MG/1 ML INJ IV PRN ×4 (00:28→12:43)
[2020-12-10] MEDS: PIPERACIL/TAZOBACTA 4.5/NS 100 4.5 GM/100 ML VIAL IV SCH ×2 (00:29→09:26)
[2020-12-10] MEDS: SODIUM CHLORIDE 0.9% 1000 ML 1,000 ML IV SCH (05:05)
[2020-12-10 07:10] LABS: Hematocrit 35.1 % (30.3-42.9); Hemoglobin 11.7 gm/dl (10.1-14.3); Mean Corpuscular HGB Conc 33 % (30-34); Mean Corpuscular Volume 99 fl (79-97); Platelet Count 165 K/mm3 (140-440); Red Blood Count 3.54 M/mm3 (3.65-5.03); Red Cell Distribution Width 13.5 % (13.2-15.2)
[2020-12-10 07:18] LABS: INR 1.01 (0.87-1.13)
[2020-12-10 07:27] LABS: Blood Urea Nitrogen 6 mg/dL (7-17); Calcium 7.5 mg/dL (8.4-10.2); Hemolysis Index 3
[2020-12-10 07:49] LABS: BUN/Creatinine Ratio 10
--- NOTE | 2020-12-10 08:49 | Progress Note ---
Assessment and Plan Assessment and plan: (1) Cholelithiasis Current Visit: Yes Status: Acute Qualifiers: Cholelithiasis location: gallbladder Cholecystitis presence: with cholecystitis Cholecystitis acuity: acute Biliary obstruction: without biliary obstruction Qualified Code(s): K80.00 - Calculus of gallbladder with acute cholecystitis without obstruction Plan to address problem: Patient placed on IV fluid and analgesic medication. General surgeon has been consulted for evaluation. Patient also placed on empiric IV antibiotics. (2) Abdominal pain Current Visit: Yes Status: Acute Qualifiers: Abdominal location: right upper quadrant Qualified Code(s): R10.11 - Right upper quadrant pain Plan to address problem: Possibly secondary to the cholelithiasis. Patient will be made n.p.o. We will continue analgesic medication and IV fluid. (3) DVT prophylaxis Current Visit: Yes Status: Acute Plan to address problem: Patient placed on sequential compression device. (4) Full code status Current Visit: Yes Status: Acute Plan to address problem: Patient is a full code. 12/10/2019 -Status post laparoscopic cholecystectomy for cholecystitis -Pain control -Discharge when cleared by general surgery History Interval history: Patient was seen and evaluated this morning Patient had pain Hospitalist Physical - Physical exam Narrative exam: Not in cardiopulmonary distress. The patient appeared well nourished and normally developed. Vital signs as documented. Head exam is unremarkable. No scleral icterus . Neck is without jugular venous distension, thyromegaly, or carotid bruits. Lungs are clear to auscultation. Cardiac exam reveals regular rate and Rhythm. Abdominal exam reveals normal bowel sounds, nontender, no organomegaly. Extremities are nonedematous and both femoral and pedal pulses are normal. ENTERPRISE APPLICATIONS MANAGER: Alert and oriented 3. No focal weakness. - Constitutional Vitals: Temp Pulse Resp BP Pulse Ox 98.6 F 62 20 99/59 95 12/10/20 03:22 12/10/20 03:22 12/10/20 04:56 12/10/20 03:22 12/10/20 03:22 General appearance: Present: no acute distress, well-nourished Results - Labs CBC & Chem 7: 12/10/20 06:17 12/10/20 06:17 Labs: Laboratory Last Values WBC 14.5 K/mm3 (4.5-11.0) H 12/10/20 06:17 RBC 3.54 M/mm3 (3.65-5.03) L 12/10/20 06:17 Hgb 11.7 gm/dl (10.1-14.3) 12/10/20 06:17 Hct 35.1 % (30.3-42.9) 12/10/20 06:17 MCV 99 fl (79-97) H 12/10/20 06:17 MCH 33 pg (28-32) H 12/10/20 06:17 MCHC 33 % (30-34) 12/10/20 06:17 RDW 13.5 % (13.2-15.2) 12/10/20 06:17 Plt Count 165 K/mm3 (140-440) 12/10/20 06:17 Lymph % (Auto) 35.3 % (13.4-35.0) H 12/08/20 23:40 [place] % (Auto) 8.1 % (0.0-7.3) H 12/08/20 23:40 Eos % (Auto) 3.3 % (0.0-4.3) 12/08/20 23:40 Baso % (Auto) 0.4 % (0.0-1.8) 12/08/20 23:40 Lymph # (Auto) 3.4 K/mm3 (1.2-5.4) 12/08/20 23:40 [place] # (Auto) 0.8 K/mm3 (0.0-0.8) 12/08/20 23:40 Eos # (Auto) 0.3 K/mm3 (0.0-0.4) 12/08/20 23:40 Baso # (Auto) 0.0 K/mm3 (0.0-0.1) 12/08/20 23:40 Seg Neutrophils % Fireman 12/10/20 06:17 Seg Neutrophils # 5.1 K/mm3 (1.8-7.7) 12/08/20 23:40 PT 13.1 Sec. (12.2-14.9) 12/10/20 06:17 INR 1.01 (0.87-1.13) 12/10/20 06:17 Sodium 140 mmol/L (137-145) 12/10/20 06:17 Potassium 3.7 mmol/L (3.6-5.0) 12/10/20 06:17 Chloride 108.5 mmol/L (98-107) H 12/10/20 06:17 Carbon Dioxide 23 mmol/L (22-30) 12/10/20 06:17 Anion Gap 12 mmol/L 12/10/20 06:17 BUN 6 mg/dL (7-17) L 12/10/20 06:17 Creatinine 0.6 mg/dL (0.6-1.2) 12/10/20 06:17 Estimated GFR > 60 ml/min 12/10/20 06:17 BUN/Creatinine Ratio 10 % 12/10/20 06:17 Glucose 134 mg/dL (65-100) H 12/10/20 06:17 Calcium 7.5 mg/dL (8.4-10.2) L D 12/10/20 06:17 Total Bilirubin < 0.20 mg/dL (0.1-1.2) 12/08/20 23:40 AST 22 units/L (5-40) 12/08/20 23:40 ALT 27 units/L (7-56) 12/08/20 23:40 Alkaline Phosphatase 55 units/L (35-129) 12/08/20 23:40 Total Protein 6.6 g/dL (6.3-8.2) 12/08/20 23:40 Albumin 4.3 g/dL (3.9-5) 12/08/20 23:40 Albumin/Globulin Ratio 1.9 % 12/08/20 23:40 Lipase 21 units/L (13-60) 12/08/20 23:40 Urine Color Yellow (Yellow) 12/08/20 23:40 Urine Turbidity Slightly-cloudy (Clear) 12/08/20 23:40 Urine pH 5.0 (5.0-7.0) 12/08/20 23:40 Ur Specific [place] 1.038 (1.003-1.030) H 12/08/20 23:40 Urine Protein 30 mg/dl mg/dL (Negative) 12/08/20 23:40 Urine Glucose (UA) Neg mg/dL (Negative) 12/08/20 23:40 Urine Ketones Neg mg/dL (Negative) 12/08/20 23:40 Urine Blood Lg (Negative) 12/08/20 23:40 Urine Nitrite Neg (Negative) 12/08/20 23:40 Urine Bilirubin Neg (Negative) 12/08/20 23:40 Urine Urobilinogen < 2.0 mg/dL (<2.0) 12/08/20 23:40 Ur Leukocyte Esterase Neg (Negative) 12/08/20 23:40 Urine WBC (Auto) 2.0 /HPF (0.0-6.0) 12/08/20 23:40 Urine RBC (Auto) 93.0 /HPF (0.0-6.0) 12/08/20 23:40 U Epithel Cells (Auto) 13.0 /HPF (0-13.0) 12/08/20 23:40 Urine Mucus 1+ /HPF 12/08/20 23:40 Urine HCG, Qual Negative (Negative) 12/08/20 23:40 Feliciano/IV: Voiding Method Urinal Active Medications - Current Medications Current Medications: Generic Name Dose Route Start Last Admin Trade Name Freq PRN Reason Stop Dose Admin Acetaminophen 650 mg 12/09/20 02:31 Acetaminophen 325 Mg Tab PO Q4H PRN Pain MILD(1-3)/Fever >100.5/GRAHAM Hydromorphone HCl 1 mg 12/09/20 03:23 12/10/20 04:56 Hydromorphone 1 Mg/1 Ml Inj IV 1 mg Q4H PRN Administration Pain , Severe (7-10) Sodium Chloride 1,000 mls @ 125 mls/hr 12/09/20 02:45 12/10/20 05:05 Nacl 0.9% 1000 Ml IV 125 mls/hr DIRECT JOSIAS Administration Piperacillin Sod/Tazobactam Sod 4.5 gm in 100 mls @ 200 mls/hr 12/10/20 00:00 12/10/20 01:00 Zosyn/Ns 4.5gm/100ml IV Infused Q8H JOSIAS Infusion Protocol Ondansetron HCl 4 mg 12/09/20 02:31 Ondansetron 4 Mg/2 Ml Inj IV Q8H PRN Nausea And Vomiting Scopolamine 1 each 12/09/20 16:00 12/09/20 15:30 Scopolamine Transdermal Patch 72 Hr TD 12/13/20 15:59 1 each PREOP NR Administration Sodium Chloride 10 ml 12/09/20 10:00 12/09/20 21:36 Sodium Chloride 0.9% 10 Ml Flush Syringe IV 10 ml BID JOSIAS Administration Sodium Chloride 10 ml 12/09/20 02:31 Sodium Chloride 0.9% 10 Ml Flush Syringe IV PRN PRN LINE FLUSH
--- NOTE | 2020-12-10 09:40 | Progress Note ---
Assessment and Plan - Patient Problems (1) Cholecystitis Current Visit: Yes Status: Acute Plan to address problem: 1) Advance to regular diet 2) Because of mildly elevated WBC count, I recommend that the pt remain in house with a repeat CBC and CMP tomorrow. Subjective Date of service: 12/10/20 Patient Reports: Positive: no new complaints, feels better, pain is less Objective Vital Signs - 12hr 12/09/20 12/09/20 12/10/20 23:14 23:16 00:28 Temperature 97.7 F Pulse Rate 66 Respiratory 16 18 Rate Blood Pressure 104/56 O2 Sat by Pulse 96 95 Oximetry 12/10/20 12/10/20 12/10/20 03:22 04:56 08:30 Temperature 98.6 F 98.9 F Pulse Rate 62 75 Respiratory 17 20 20 Rate Blood Pressure 99/59 114/62 O2 Sat by Pulse 95 97 Oximetry - Abdomen soft, bowel sounds normal (Minimally and appropriately TTP without rebound or guarding.) - Labs 12/10/20 06:17 12/10/20 06:17 Diabetes panel 12/10/20 Range/Units 06:17 Sodium 140 (137-145) mmol/L Potassium 3.7 (3.6-5.0) mmol/L Chloride 108.5 H (98-107) mmol/L Carbon Dioxide 23 (22-30) mmol/L BUN 6 L (7-17) mg/dL Creatinine 0.6 (0.6-1.2) mg/dL Glucose 134 H (65-100) mg/dL Calcium 7.5 L D (8.4-10.2) mg/dL Calcium panel 12/10/20 Range/Units 06:17 Calcium 7.5 L D (8.4-10.2) mg/dL Pituitary panel 12/10/20 Range/Units 06:17 Sodium 140 (137-145) mmol/L Potassium 3.7 (3.6-5.0) mmol/L Chloride 108.5 H (98-107) mmol/L Carbon Dioxide 23 (22-30) mmol/L BUN 6 L (7-17) mg/dL Creatinine 0.6 (0.6-1.2) mg/dL Glucose 134 H (65-100) mg/dL Calcium 7.5 L D (8.4-10.2) mg/dL Adrenal panel 12/10/20 Range/Units 06:17 Sodium 140 (137-145) mmol/L Potassium 3.7 (3.6-5.0) mmol/L Chloride 108.5 H (98-107) mmol/L Carbon Dioxide 23 (22-30) mmol/L BUN 6 L (7-17) mg/dL Creatinine 0.6 (0.6-1.2) mg/dL Glucose 134 H (65-100) mg/dL Calcium 7.5 L D (8.4-10.2) mg/dL
[2020-12-10] MEDS ORDERED: BENZOCAINE/MENTHOL LOZENGE MM PRN (11:09)
--- NOTE | 2020-12-10 11:13 | Discharge Summary ---
Providers - Providers Date of Admission: 12/09/20 02:27 Date of discharge: 12/10/20 Attending physician: JULIO IGNACIO MD 12/09/20 02:27 Consult to Physician [CONS] Routine Comment: Dr. Gonzalez spoke with Dr. Nguyen @ 0223 Consulting Provider: CATERINA NGUYEN Physician Instructions: Reason For Exam: carri Primary care physician: COATER CARBON PAPER Hospitalization Reason for admission: Cholecystitis, cholelithiasis, abdominal pain Condition: Stable Procedures: Laparoscopic cholecystectomy Hospital course: 3-year-old female with known history of seizure disorder, asthma and pancreatitis in the past presenting to the emergency room today complaining of abdominal pain. Abdominal pain is said to be more in the upper abdomen. This has been ongoing for the past 2 days. Patient was seen here in this facility about 10 days ago and was diagnosed with possible cholecystitis. Admission was recommended but patient opted to be on outpatient antibiotics and was sent home. Patient has since completed the antibiotics but indicates that her pain has somehow returned. On a scale of 10 pain was 10/10 in severity radiating towards the right upper shoulder. Patient has had associated nausea and vomiting, no diarrhea, no fever or chills, no chest pain or shortness of breath. Patient denies any sick contacts and no recent travel, denies any contact with anyone with COVID-19. Work-up in the emergency room today, CT of the abdomen and pelvis reveals cholelithiasis. General surgeon on-call has been notified by the ER physician. Hospital course Patient admitted to the floor for cholecystitis, cholelithiasis and general surgery was consulted and did laparoscopic cholecystectomy on 12/09/2020 and patient is doing well this morning. Her diet is advanced. Patient has elevated white blood cell count and I put her empirically on Augmentin for 5 days. Patient was hemodynamically stable at the time of discharge. Patient was discharged with few days of pain medicine. Patient advised to have follow-up with her primary care physician. Patient's questions and concerns were addressed at the bedside. Disposition: - TO HOME OR SELFCARE Time spent for discharge: 35 minutes - Discharge Diagnoses (1) Abdominal pain Status: Acute Qualifiers: Abdominal location: right upper quadrant Qualified Code(s): R10.11 - Right upper quadrant pain (2) Cholecystitis Status: Acute (3) Cholelithiasis Status: Acute Qualifiers: Cholelithiasis location: gallbladder Cholecystitis presence: with cholecystitis Cholecystitis acuity: acute Biliary obstruction: without biliary obstruction Qualified Code(s): K80.00 - Calculus of gallbladder with acute cholecystitis without obstruction (4) Intractable abdominal pain Status: Acute Core Measure Documentation - Palliative Care Palliative Care/ Comfort Measures: Not Applicable - Core Measures Any of the following diagnoses?: none Exam - Physical Exam Narrative exam: Not in cardiopulmonary distress. The patient appeared well nourished and normally developed. Vital signs as documented. Head exam is unremarkable. No scleral icterus . Neck is without jugular venous distension, thyromegaly, or carotid bruits. Lungs are clear to auscultation. Cardiac exam reveals regular rate and Rhythm. Abdominal exam reveals pain at the site of laparoscopic incision. Extremities are nonedematous and both femoral and pedal pulses are normal. PRINCIPAL SOFTWARE ARCHITECT: Alert and oriented 3. No focal weakness. - Constitutional Vitals: Temp Pulse Resp BP Pulse Ox 98.9 F 75 20 114/62 97 12/10/20 08:30 12/10/20 08:30 12/10/20 08:30 12/10/20 08:30 12/10/20 08:30 Plan Activity: no restrictions Weight Bearing Status: Full Weight Bearing Diet: low fat Follow up with: PRIMARY CAREMD [Primary Care Provider] - 7 Days Prescriptions: Amoxicillin/K Clav Tab [Augmentin 875MG TAB] 1 tab PO Q12HR #14 tab oxyCODONE /ACETAMINOPHEN [Percocet 5/325 mg] 1 tab PO Q4HR PRN #12 tab PRN Reason: Pain , Severe (7-10)
[2020-12-10 11:32] VITALS: BP 104/59
[2020-12-10 18:15] LABS: Total Cells Counted 100
[2020-12-10 18:16] LABS: Band Neutrophils # (Manual) 0.7 K/mm3
[2020-12-10 18:31] LABS: Burr Cells Rare; Platelet Estimate Consistent w Auto
== END 2020-12-10 13:50 | disposition home or self-care (01) ==
LOC: ED 23:16 → 4A 12-09 02:27
PROVIDERS: ADMIT Internal Medicine Geriatric Medicine; ATTEND Internal Medicine
DX: K80.10 Calculus of gallbladder with chronic cholecystitis without obstruction (principal); J45.909 Unspecified asthma, uncomplicated; R56.9 Unspecified convulsions; F17.210 Nicotine dependence, cigarettes, uncomplicated; Z98.51 Tubal ligation status
CPT/HCPCS: 36415; 47562; 74177; 80048; 80053; 81001; 81025; 83690; 85025; 85610; 88304; 96361; 96365; 96366; 96375; 96376; 99291; 99406; A4217; G0378; J0330; J1100; J1170; J2250; J2270; J2405; J2543; J2704; J2710; J2765; J3010; J3490; J7030; Q9967; 85007

== ENCOUNTER 2021-07-08 18:52 | Emergency (ER) | payer OTHER ==
[2021-07-08] MEDS ORDERED: IPRATROPIUM/ALBUTEROL SULFATE 3 ML AMPUL.NEB IH ONE (19:11)
[2021-07-08] MEDS ORDERED: dexAMETHasone 4 MG/ML VIAL IM ONE (19:11)
--- NOTE | 2021-07-08 19:54 | Emergency Department Report ---
- General Chief Complaint: Dyspnea/Respdistress Stated Complaint: SOB MILD FEVER Time Seen by Provider: 07/08/21 19:10 Source: patient Mode of arrival: Ambulatory Limitations: No Limitations - History of Present Illness Initial Comments: 41-year-old female significant past medical history exception of asthma presents emergency department complaining of having fevers cough chills coryza 2 days after receiving her Covid vaccination Pfizer. She reports that it is flaring up her asthma and is not responding to her home meds that she has been having some increased wheezing although she is utilizing her nebulizer. She reports coryza myalgias coughs congestion mucus production but no diarrhea no abdominal pain no headache no loss of consciousness no hemoptysis no hematemesis no hematochezia MD Complaint: fever, cough, rhinorrhea - Related Data Home Medications Medication Instructions Recorded Confirmed Last Taken Gabapentin [Neurontin] 800 mg PO Q8H 05/04/15 03/10/17 1 Day Ago ~03/09/17 Previous Rx's Medication Instructions Recorded Last Taken Type Chlorhexidine Mouthwash [Peridex] 15 ml MM BID #1 bottle 05/08/17 Unknown Rx Acetaminophen/Codeine [Tylenol 1 tab PO Q6H PRN #12 tab 06/04/17 Unknown Rx /Codeine # 3 tab] Cyclobenzaprine [Flexeril 10 MG 10 mg PO TID PRN #15 tablet 06/04/17 Unknown Rx TAB] Acetaminophen [Tylenol Extra 1,000 mg PO Q6H #24 tablet 06/27/18 Unknown Rx Strength] Ondansetron [Zofran ODT TAB] 4 mg PO Q8HR #9 tab.rapdis 06/27/18 Unknown Rx ALBUTEROL Inhaler(NF) [VENTOLIN 2 puff IH Q4-6H PRN #1 inha 12/31/18 Unknown Rx Inhaler(NF)] Albuterol Mdi (or & Nicu Only) 2 puff IH QID PRN #8.5 gram 10/15/19 Unknown Rx [ProAir HFA Inhaler] ALBUTEROL NEB's [Proventil 0.083% 2.5 mg IH TID PRN #30 neb 10/05/20 Unknown Rx NEBS] Albuterol Sulfate [Proventil Hfa] 2 inhalation IH Q4HR PRN #1 12/16/20 Unknown Rx hfa.aer.ad Azithromycin [Zithromax Z-ELIANA] 1 dose PO DAILY 5 Days tab 10/05/20 Unknown Rx Benzonatate [Tessalon Perles] 100 mg PO Q8HR PRN #20 capsule 10/05/20 Unknown Rx Prednisone [predniSONE 10 mg 10 mg PO .TAPER #1 tab.ds.pk 10/05/20 Unknown Rx (6-Day Pack, 21 Tabs)] guaiFENesin/CODEINE [Robitussin AC] 10 ml PO Q6HR PRN #40 ml 10/05/20 Unknown Rx Promethazine [Phenergan] 25 mg PO Q6HR PRN #15 tab 11/24/20 Unknown Rx Amoxicillin/K Clav Tab [Augmentin 1 tab PO Q12HR #14 tab 12/10/20 Unknown Rx 875MG TAB] oxyCODONE /ACETAMINOPHEN [Percocet 1 tab PO Q4HR PRN #12 tab 12/10/20 Unknown Rx 5/325 mg] Montelukast [Singulair] 10 mg PO QPM #14 tablet 07/08/21 Unknown Rx guaiFENesin/CODEINE [Robitussin AC] 5 ml PO Q6H PRN #120 ml 07/08/21 Unknown Rx predniSONE [Deltasone] 20 mg PO QDAY #5 tab 07/08/21 Unknown Rx Allergies Allergy/AdvReac Type Severity Reaction Status Date / Time ketorolac tromethamine Allergy Rash Verified 09/05/15 13:30 [From Toradol] ED Review of Systems ROS: Stated complaint: SOB MILD FEVER Other details as noted in HPI Comment: All other systems reviewed and negative ED Past Medical Hx - Past Medical History Previous Medical History?: Yes Hx Hypertension: No (reports BP usually "runs low") Hx Heart Attack/AMI: No Hx GERD: Yes Hx Liver Disease: No Hx Renal Disease: No Hx Seizures: Yes (has had seziures associated with EtOH withdrawal) Hx Asthma: Yes (albuterol 2x/wk) Hx Tuberculosis: No Hx HIV: No Additional medical history: Pancreatitis, cyst on right ovary, Vaginal delivery x 2. Gall bladder disease - Surgical History Past Surgical History?: Yes Additional Surgical History: tubaligation - Social History Smoking Status: Current Every Day Smoker - Medications Home Medications: Home Medications Medication Instructions Recorded Confirmed Last Taken Type Gabapentin [Neurontin] 800 mg PO Q8H 05/04/15 03/10/17 1 Day Ago History ~03/09/17 Chlorhexidine Mouthwash [Peridex] 15 ml MM BID #1 bottle 05/08/17 Unknown Rx Acetaminophen/Codeine [Tylenol 1 tab PO Q6H PRN #12 tab 06/04/17 Unknown Rx /Codeine # 3 tab] Cyclobenzaprine [Flexeril 10 MG 10 mg PO TID PRN #15 tablet 06/04/17 Unknown Rx TAB] Acetaminophen [Tylenol Extra 1,000 mg PO Q6H #24 tablet 06/27/18 Unknown Rx Strength] Ondansetron [Zofran ODT TAB] 4 mg PO Q8HR #9 tab.rapdis 06/27/18 Unknown Rx ALBUTEROL Inhaler(NF) [VENTOLIN 2 puff IH Q4-6H PRN #1 inha 12/31/18 Unknown Rx Inhaler(NF)] Albuterol Mdi (or & Nicu Only) 2 puff IH QID PRN #8.5 gram 10/15/19 Unknown Rx [ProAir HFA Inhaler] ALBUTEROL NEB's [Proventil 0.083% 2.5 mg IH TID PRN #30 neb 10/05/20 Unknown Rx NEBS] Albuterol Sulfate [Proventil Hfa] 2 inhalation IH Q4HR PRN #1 10/05/20 Unknown Rx hfa.aer.ad Azithromycin [Zithromax Z-ELIANA] 1 dose PO DAILY 5 Days tab 10/05/20 Unknown Rx Benzonatate [Tessalon Perles] 100 mg PO Q8HR PRN #20 capsule 10/05/20 Unknown Rx Prednisone [predniSONE 10 mg 10 mg PO .TAPER #1 tab.ds.pk 10/05/20 Unknown Rx (6-Day Pack, 21 Tabs)] guaiFENesin/CODEINE [Robitussin AC] 10 ml PO Q6HR PRN #40 ml 10/05/20 Unknown Rx Promethazine [Phenergan] 25 mg PO Q6HR PRN #15 tab 11/24/20 Unknown Rx Amoxicillin/K Clav Tab [Augmentin 1 tab PO Q12HR #14 tab 12/10/20 Unknown Rx 875MG TAB] oxyCODONE /ACETAMINOPHEN [Percocet 1 tab PO Q4HR PRN #12 tab 12/10/20 Unknown Rx 5/325 mg] Montelukast [Singulair] 10 mg PO QPM #14 tablet 07/08/21 Unknown Rx guaiFENesin/CODEINE [Robitussin AC] 5 ml PO Q6H PRN #120 ml 07/08/21 Unknown Rx predniSONE [Deltasone] 20 mg PO QDAY #5 tab 07/08/21 Unknown Rx ED Physical Exam - General Limitations: No Limitations General appearance: alert, in no apparent distress - Head Head exam: Present: atraumatic, normocephalic - Eye Eye exam: Present: normal appearance, PERRL, EOMI Pupils: Present: normal accommodation - ENT ENT exam: Present: normal exam, normal orophraynx, mucous membranes moist - Neck Neck exam: Present: normal inspection - Respiratory Respiratory exam: Present: normal lung sounds bilaterally, wheezes. Absent: respiratory distress, rales - Cardiovascular Cardiovascular Exam: Present: regular rate, normal rhythm. Absent: systolic murmur, diastolic murmur, rubs, gallop - GI/Abdominal GI/Abdominal exam: Present: soft, normal bowel sounds. Absent: distended, tenderness, guarding, organomegaly, bruit, pulsatile mass - Extremities Exam Extremities exam: Present: normal inspection - Back Exam Back exam: Present: normal inspection - Neurological Exam Neurological exam: Present: alert, oriented X3 - Psychiatric Psychiatric exam: Present: normal affect, normal mood - Skin Skin exam: Present: warm, dry, intact, normal color. Absent: rash ED Course Vital Signs 07/08/21 07/08/21 07/08/21 18:56 19:50 19:51 Temperature 98.1 F 98.3 F Pulse Rate 70 61 Respiratory 16 14 Rate Blood Pressure Blood Pressure 140/75 102/56 [Left] O2 Sat by Pulse 96 96 97 Oximetry 07/08/21 20:07 Temperature 98.4 F Pulse Rate 73 Respiratory 14 Rate Blood Pressure 109/63 Blood Pressure [Left] O2 Sat by Pulse 97 Oximetry ED Medical Decision Making - Radiology Data Radiology results: report reviewed [facility] [address] [place] [address] XRay Report Signed Patient: BRIANJANUARY TALA MR#: [id number] : 1980 Acct:[id number] Age/Sex: 41 / F ADM Date: 07/08/21 Loc: ED Attending Dr: Ordering Physician: ALBER CRANDALL Date of Service: 07/08/21 Procedure(s): XR chest routine 2V Accession Number(s): [id number] cc: ALBER CRANDALL Fluoro Time In Minutes: CHEST 2 VIEWS INDICATION / CLINICAL INFORMATION: Cough and shortness breath. Difficulty breathing for one week post first COVID vaccination. COMPARISON: 11/24/20. FINDINGS: SUPPORT DEVICES: None. HEART / MEDIASTINUM: The heart size and pulmonary vasculature are normal. LUNGS / PLEURA: No significant pulmonary or pleural abnormality. No pneumothorax. ADDITIONAL FINDINGS: No significant additional findings. IMPRESSION: No acute abnormality or significant change. Signer Name: Kwabena Melendez MD Signed: 07/08/2021 8:26 PM Workstation Name: [id number] Transcribed By: RT Dictated By: Kwabena Melendez MD Electronically Authenticated By: Kwabena Melendez MD Signed Date/Time: 07/08/212025 DD/ 24 TD/TT: Print Cancel - Medical Decision Making This patient presents with acute cough, most consistent with bronchitis. Differential diagnosis includes asthma exacerbation presentation not consistent with acute bacterial pneumonia, influenza, asthma, transient airway hyperresponsiveness. Presentation not consistent with chronic causes of cough (including GERD, asthma, postnasal discharge, medication side effect, CHF, lung cancer or mass). Plan: , supportive care, reassess Critical care attestation.: If time is entered above; I have spent that time in minutes in the direct care of this critically ill patient, excluding procedure time. ED Disposition Clinical Impression: Cough, Bronchitis Disposition: 01 HOME / SELF CARE / HOMELESS Is pt being admited?: No Does the pt Need Aspirin: No Condition: Stable Instructions: Chronic Bronchitis (ED), Cool Mist Vaporizer, How to Use a Metered Dose Inhaler, Cough, Adult Prescriptions: predniSONE [Deltasone] 20 mg PO QDAY #5 tab guaiFENesin/CODEINE [Robitussin AC] 5 ml PO Q6H PRN #120 ml PRN Reason: Cough Montelukast [Singulair] 10 mg PO QPM #14 tablet Referrals: PRIMARY CARE, [Primary Care Provider] - 3-5 Days [facility] [Provider Group] - 3-5 Days
[2021-07-08 20:10] VITALS: BP 109/63
--- NOTE | 2021-07-08 20:30 | XRay Report ---
CHEST 2 VIEWS INDICATION / CLINICAL INFORMATION: Cough and shortness breath. Difficulty breathing for one week post first COVID vaccination. COMPARISON: 11/24/20. FINDINGS: SUPPORT DEVICES: None. HEART / MEDIASTINUM: The heart size and pulmonary vasculature are normal. LUNGS / PLEURA: No significant pulmonary or pleural abnormality. No pneumothorax. ADDITIONAL FINDINGS: No significant additional findings. IMPRESSION: No acute abnormality or significant change. Signer Name: Kwabena Melendez MD Signed: 07/08/2021 8:26 PM Workstation Name: [id number]
== END 2021-07-08 21:22 | disposition home or self-care (01) ==
LOC: ED 18:52
DX: J45.909 Unspecified asthma, uncomplicated (principal); K21.9 Gastro-esophageal reflux disease without esophagitis; F17.210 Nicotine dependence, cigarettes, uncomplicated; Z98.51 Tubal ligation status
CPT/HCPCS: 71046; 96372; 99283; J1100

== ENCOUNTER 2021-07-10 20:02 | Emergency (ER) | payer SELFPAY | END 2021-07-10 22:20 | disposition left against medical advice (07) | LOC: ED 20:02 | DX: R06.02 Shortness of breath (principal); Z53.21 Procedure and treatment not carried out due to patient leaving prior to being seen by health care provider ==

== ENCOUNTER 2021-07-12 19:44 | Emergency (ER) | payer SELFPAY ==
--- NOTE | 2021-07-12 21:52 | Emergency Department Report ---
- General Stated Complaint: SOB, ABD OAIN, NO SMELL,COUGH Time Seen by Provider: 07/12/21 21:39 - History of Present Illness Initial Comments: The patient was evaluated in the emergency department for symptoms described in the history of present illness. He/she was evaluated in the context of the global COVID-19 pandemic, which necessitated consideration that the patient might be at risk for infection with the virus that causes COVID-19. Institutional protocols and algorithms that pertain to the evaluation of patients at risk for COVID-19 are in a state of rapid change based on information released by regulatory bodies including the CDC and federal and state organizations. These policies and algorithms were followed during the patient's care in the emergency department. Please note that these policies, procedures and recommendations changed on a rapid basis. 41-year-old female presents to the emergency room planing of shortness of breath cough runny nose and now loss of taste or smell. Patient states she was seen here on Saturday and was placed on Singulair prednisone and cough medicine. Patient reports that she had a Covid vaccination 2 weeks ago. Patient reports that she has been doing nebulizer treatments taken ibuprofen and her meds that was she was prescribed but no relief. Patient reports she does not have a primary care provider to do any follow-up. Patient has not did a Covid test. MD Complaint: fever, cough - Related Data Home Medications Medication Instructions Recorded Confirmed Last Taken Gabapentin [Neurontin] 800 mg PO Q8H 05/04/15 03/10/17 1 Day Ago ~03/09/17 Previous Rx's Medication Instructions Recorded Last Taken Type Chlorhexidine Mouthwash [Peridex] 15 ml MM BID #1 bottle 05/08/17 Unknown Rx Acetaminophen/Codeine [Tylenol 1 tab PO Q6H PRN #12 tab 06/04/17 Unknown Rx /Codeine # 3 tab] Cyclobenzaprine [Flexeril 10 MG 10 mg PO TID PRN #15 tablet 06/04/17 Unknown Rx TAB] Acetaminophen [Tylenol Extra 1,000 mg PO Q6H #24 tablet 06/27/18 Unknown Rx Strength] Ondansetron [Zofran ODT TAB] 4 mg PO Q8HR #9 tab.rapdis 06/27/18 Unknown Rx ALBUTEROL Inhaler(NF) [VENTOLIN 2 puff IH Q4-6H PRN #1 inha 12/31/18 Unknown Rx Inhaler(NF)] Albuterol Mdi (or & Nicu Only) 2 puff IH QID PRN #8.5 gram 10/15/19 Unknown Rx [ProAir HFA Inhaler] ALBUTEROL NEB's [Proventil 0.083% 2.5 mg IH TID PRN #30 neb 10/05/20 Unknown Rx NEBS] Albuterol Sulfate [Proventil Hfa] 2 inhalation IH Q4HR PRN #1 10/05/20 Unknown Rx hfa.aer.ad Azithromycin [Zithromax Z-ELIANA] 1 dose PO DAILY 5 Days tab 10/05/20 Unknown Rx Benzonatate [Tessalon Perles] 100 mg PO Q8HR PRN #20 capsule 10/05/20 Unknown Rx Prednisone [predniSONE 10 mg 10 mg PO .TAPER #1 tab.ds.pk 10/05/20 Unknown Rx (6-Day Pack, 21 Tabs)] Promethazine [Phenergan] 25 mg PO Q6HR PRN #15 tab 11/24/20 Unknown Rx Amoxicillin/K Clav Tab [Augmentin 1 tab PO Q12HR #14 tab 12/10/20 Unknown Rx 875MG TAB] oxyCODONE /ACETAMINOPHEN [Percocet 1 tab PO Q4HR PRN #12 tab 12/10/20 Unknown Rx 5/325 mg] Montelukast [Singulair] 10 mg PO QPM #14 tablet 07/08/21 Unknown Rx guaiFENesin/CODEINE [Robitussin AC] 5 ml PO Q6H PRN #120 ml 07/08/21 Unknown Rx predniSONE [Deltasone] 20 mg PO QDAY #5 tab 07/08/21 Unknown Rx guaiFENesin/CODEINE [Robitussin AC] 10 ml PO Q6HR PRN #100 ml 07/12/21 Unknown Rx Allergies Allergy/AdvReac Type Severity Reaction Status Date / Time ketorolac tromethamine Allergy Rash Verified 07/12/21 22:04 [From Toradol] ED Review of Systems ROS: Stated complaint: SOB, ABD OAIN, NO SMELL,COUGH Other details as noted in HPI Comment: All other systems reviewed and negative ED Past Medical Hx - Past Medical History Hx Hypertension: No (reports BP usually "runs low") Hx Heart Attack/AMI: No Hx GERD: Yes Hx Liver Disease: No Hx Renal Disease: No Hx Seizures: Yes (has had seziures associated with EtOH withdrawal) Hx Asthma: Yes (albuterol 2x/wk) Hx Tuberculosis: No Hx HIV: No Additional medical history: Pancreatitis, cyst on right ovary, Vaginal delivery x 2. Gall bladder disease - Surgical History Additional Surgical History: tubaligation - Social History Smoking Status: Current Every Day Smoker - Medications Home Medications: Home Medications Medication Instructions Recorded Confirmed Last Taken Type Gabapentin [Neurontin] 800 mg PO Q8H 05/04/15 03/10/17 1 Day Ago History ~03/09/17 Chlorhexidine Mouthwash [Peridex] 15 ml MM BID #1 bottle 05/08/17 Unknown Rx Acetaminophen/Codeine [Tylenol 1 tab PO Q6H PRN #12 tab 06/04/17 Unknown Rx /Codeine # 3 tab] Cyclobenzaprine [Flexeril 10 MG 10 mg PO TID PRN #15 tablet 06/04/17 Unknown Rx TAB] Acetaminophen [Tylenol Extra 1,000 mg PO Q6H #24 tablet 06/27/18 Unknown Rx Strength] Ondansetron [Zofran ODT TAB] 4 mg PO Q8HR #9 tab.rapdis 06/27/18 Unknown Rx ALBUTEROL Inhaler(NF) [VENTOLIN 2 puff IH Q4-6H PRN #1 inha 12/31/18 Unknown Rx Inhaler(NF)] Albuterol Mdi (or & Nicu Only) 2 puff IH QID PRN #8.5 gram 10/15/19 Unknown Rx [ProAir HFA Inhaler] ALBUTEROL NEB's [Proventil 0.083% 2.5 mg IH TID PRN #30 neb 10/05/20 Unknown Rx NEBS] Albuterol Sulfate [Proventil Hfa] 2 inhalation IH Q4HR PRN #1 10/05/20 Unknown Rx hfa.aer.ad Azithromycin [Zithromax Z-ELIANA] 1 dose PO DAILY 5 Days tab 10/05/20 Unknown Rx Benzonatate [Tessalon Perles] 100 mg PO Q8HR PRN #20 capsule 10/05/20 Unknown Rx Prednisone [predniSONE 10 mg 10 mg PO .TAPER #1 tab.ds.pk 10/05/20 Unknown Rx (6-Day Pack, 21 Tabs)] Promethazine [Phenergan] 25 mg PO Q6HR PRN #15 tab 11/24/20 Unknown Rx Amoxicillin/K Clav Tab [Augmentin 1 tab PO Q12HR #14 tab 12/10/20 Unknown Rx 875MG TAB] oxyCODONE /ACETAMINOPHEN [Percocet 1 tab PO Q4HR PRN #12 tab 12/10/20 Unknown Rx 5/325 mg] Montelukast [Singulair] 10 mg PO QPM #14 tablet 07/08/21 Unknown Rx guaiFENesin/CODEINE [Robitussin AC] 5 ml PO Q6H PRN #120 ml 07/08/21 Unknown Rx predniSONE [Deltasone] 20 mg PO QDAY #5 tab 07/08/21 Unknown Rx guaiFENesin/CODEINE [Robitussin AC] 10 ml PO Q6HR PRN #100 ml 07/12/21 Unknown Rx ED Physical Exam - General General appearance: alert, in no apparent distress - Head Head exam: Present: atraumatic, normocephalic - Eye Eye exam: Present: normal appearance - ENT ENT exam: Present: normal external ear exam - Neck Neck exam: Present: normal inspection, full ROM - Respiratory Respiratory exam: Present: wheezes, accessory muscle use - Cardiovascular Cardiovascular Exam: Present: regular rate - GI/Abdominal GI/Abdominal exam: Present: soft. Absent: distended, tenderness - Extremities Exam Extremities exam: Present: normal inspection, full ROM - Back Exam Back exam: Present: normal inspection - Neurological Exam Neurological exam: Present: alert, oriented X3, normal gait - Psychiatric Psychiatric exam: Present: normal affect, normal mood - Skin Skin exam: Present: warm, dry, intact, normal color. Absent: rash ED Course Vital Signs 07/12/21 22:02 Temperature 98.9 F Pulse Rate 94 H Respiratory 18 Rate Blood Pressure 124/90 O2 Sat by Pulse 97 Oximetry ED Medical Decision Making - Lab Data Result diagrams: 07/12/21 22:16 07/12/21 22:16 - Medical Decision Making 41-year-old female presents to the emergency room planing of shortness of breath cough runny nose and now loss of taste or smell. Patient states she was seen here on Saturday and was placed on Singulair prednisone and cough medicine. Patient reports that she had a Covid vaccination 2 weeks ago. Patient reports that she has been doing nebulizer treatments taken ibuprofen and her meds that was she was prescribed but no relief. Patient reports she does not have a primary care provider to do any follow-up. Patient has not did a Covid test. CBC CMP D-dimer. INT for possible CTA - Differential Diagnosis COVID-19, asthma exacerbation, pulmonary embolism Critical care attestation.: If time is entered above; I have spent that time in minutes in the direct care of this critically ill patient, excluding procedure time. ED Disposition Clinical Impression: Suspected COVID-19 virus infection Disposition: HOME / SELF CARE / HOMELESS Is pt being admited?: No Does the pt Need Aspirin: No Condition: Stable Instructions: COVID-19 Frequently Asked Questions, COVID-19: How to Protect Yourself and Others - CDC, Prevent the Spread of COVID-19 if You Are Sick - [facility] Additional Instructions: Labs are within normal limits. I recommend continue with medication that was prescribed to you on the . Continue with your breathing treatments Prescriptions: guaiFENesin/CODEINE [Robitussin AC] 10 ml PO Q6HR PRN #100 ml PRN Reason: Cough Referrals: [facility] [Provider Group] - 3-5 Days
[2021-07-12 22:04] VITALS: BP 124/90
[2021-07-12 22:48] LABS: Basophils % (Auto) 0.2 % (0.0-1.8); Eosinophils % (Auto) 0.5 % (0.0-4.3); Hematocrit 42.1 % (30.3-42.9); Hemoglobin 14.6 gm/dl (10.1-14.3); Lymphocytes # (Auto) 2.7 K/mm3 (1.2-5.4); Lymphocytes % (Auto) 44.1 % (13.4-35.0); Mean Corpuscular HGB Conc 35 % (30-34); Mean Corpuscular Volume 98 fl (79-97); Monocytes # (Auto) 0.7 K/mm3 (0.0-0.8); Monocytes % (Auto) 12.3 % (0.0-7.3); Platelet Count 163 K/mm3 (140-440); Red Blood Count 4.31 M/mm3 (3.65-5.03); Red Cell Distribution Width 13.6 % (13.2-15.2)
[2021-07-12 23:07] LABS: Alanine Aminotransferase 69 units/L (7-56); Albumin 4.2 g/dL (3.9-5); BUN/Creatinine Ratio 15; Blood Urea Nitrogen 15 mg/dL (7-17); Calcium 8.3 mg/dL (8.4-10.2); Hemolysis Index 6
== END 2021-07-12 23:50 | disposition home or self-care (01) ==
LOC: ED 19:44
DX: R06.02 Shortness of breath (principal); R05 Cough; Z20.822 Contact with and (suspected) exposure to COVID-19; K21.9 Gastro-esophageal reflux disease without esophagitis; F17.200 Nicotine dependence, unspecified, uncomplicated; Z72.89 Other problems related to lifestyle; Z98.51 Tubal ligation status; Z88.8 Allergy status to other drugs, medicaments and biological substances; Z79.899 Other long term (current) drug therapy
CPT/HCPCS: 36415; 80053; 85025; 85379; 99283

== ENCOUNTER 2021-09-15 20:04 | Emergency (ER) | payer SELFPAY ==
[2021-09-15 20:23] VITALS: BP 119/86
[2021-09-15] MEDS ORDERED: ONDANSETRON 4 MG/2 ML INJ IV ONE (20:41)
[2021-09-15] MEDS ORDERED: MORPHINE 4 MG/1 ML INJ IV ONE (20:41)
--- NOTE | 2021-09-15 20:49 | Emergency Department Report ---
ED General Adult HPI - General Chief complaint: Abdominal Pain Stated complaint: ABDOMINAL PAIN Time Seen by Provider: 09/15/21 20:24 Source: patient Mode of arrival: Ambulatory Limitations: No Limitations - History of Present Illness Initial comments: Patient is a 41-year-old female presents emergency with complaints of right flank pain and lower abdominal pain that began yesterday morning. She has associated hematuria, dysuria, urinary frequency, decreased urination, nausea. She denies any fever, vomiting, diarrhea. Patient states that she has a history of kidney stones but has never seen a urologist. Past medical history of asthma, GERD, pancreatitis, ovarian cyst. Past abdominal surgical history of cholecystectomy and tubal ligation - Related Data Home Medications Medication Instructions Recorded Confirmed Last Taken Gabapentin [Neurontin] 800 mg PO Q8H 05/04/15 03/10/17 1 Day Ago ~03/09/17 Previous Rx's Medication Instructions Recorded Last Taken Type Chlorhexidine Mouthwash [Peridex] 15 ml MM BID #1 bottle 05/08/17 Unknown Rx Acetaminophen/Codeine [Tylenol 1 tab PO Q6H PRN #12 tab 06/04/17 Unknown Rx /Codeine # 3 tab] Cyclobenzaprine [Flexeril 10 MG 10 mg PO TID PRN #15 tablet 06/04/17 Unknown Rx TAB] Acetaminophen [Tylenol Extra 1,000 mg PO Q6H #24 tablet 06/27/18 Unknown Rx Strength] Ondansetron [Zofran ODT TAB] 4 mg PO Q8HR #9 tab.rapdis 06/27/18 Unknown Rx ALBUTEROL Inhaler(NF) [VENTOLIN 2 puff IH Q4-6H PRN #1 inha 12/31/18 Unknown Rx Inhaler(NF)] Albuterol Mdi (or & Nicu Only) 2 puff IH QID PRN #8.5 gram 10/15/19 Unknown Rx [ProAir HFA Inhaler] ALBUTEROL NEB's [Proventil 0.083% 2.5 mg IH TID PRN #30 neb 10/05/20 Unknown Rx NEBS] Albuterol Sulfate [Proventil Hfa] 2 inhalation IH Q4HR PRN #1 10/05/20 Unknown Rx hfa.aer.ad Azithromycin [Zithromax Z-ELIANA] 1 dose PO DAILY 5 Days tab 10/05/20 Unknown Rx Benzonatate [Tessalon Perles] 100 mg PO Q8HR PRN #20 capsule 10/05/20 Unknown Rx Prednisone [predniSONE 10 mg 10 mg PO .TAPER #1 tab.ds.pk 10/05/20 Unknown Rx (6-Day Pack, 21 Tabs)] Promethazine [Phenergan] 25 mg PO Q6HR PRN #15 tab 11/24/20 Unknown Rx Amoxicillin/K Clav Tab [Augmentin 1 tab PO Q12HR #14 tab 12/10/20 Unknown Rx 875MG TAB] oxyCODONE /ACETAMINOPHEN [Percocet 1 tab PO Q4HR PRN #12 tab 12/10/20 Unknown Rx 5/325 mg] Montelukast [Singulair] 10 mg PO QPM #14 tablet 07/08/21 Unknown Rx guaiFENesin/CODEINE [Robitussin AC] 5 ml PO Q6H PRN #120 ml 07/08/21 Unknown Rx predniSONE [Deltasone] 20 mg PO QDAY #5 tab 07/08/21 Unknown Rx guaiFENesin/CODEINE [Robitussin AC] 10 ml PO Q6HR PRN #100 ml 07/12/21 Unknown Rx Acetaminophen/Codeine [Tylenol 1 tab PO Q6H PRN #10 tab 09/15/21 Unknown Rx /Codeine # 3 tab] Fluconazole [Diflucan TAB] 150 mg PO QDAY 1 Days #3 tablet 09/15/21 Unknown Rx cephALEXin [Keflex] 500 mg PO BID 7 Days #14 capsule 09/15/21 Unknown Rx Allergies Allergy/AdvReac Type Severity Reaction Status Date / Time ketorolac tromethamine Allergy Rash Verified 07/12/21 22:04 [From Toradol] ED Review of Systems ROS: Stated complaint: ABDOMINAL PAIN Other details as noted in HPI Comment: All other systems reviewed and negative ED Past Medical Hx - Past Medical History Previous Medical History?: Yes Hx Hypertension: No (reports BP usually "runs low") Hx Heart Attack/AMI: No Hx GERD: Yes Hx Liver Disease: No Hx Renal Disease: No Hx Seizures: Yes (has had seziures associated with EtOH withdrawal) Hx Kidney Stones: Yes Hx Asthma: Yes (albuterol 2x/wk) Hx Tuberculosis: No Hx HIV: No Additional medical history: Pancreatitis, cyst on right ovary, Vaginal delivery x 2. Gall bladder disease - Surgical History Past Surgical History?: Yes Hx Cholecystectomy: Yes Additional Surgical History: tubaligation - Social History Smoking Status: Never Smoker Substance Use Type: None - Medications Home Medications: Home Medications Medication Instructions Recorded Confirmed Last Taken Type Gabapentin [Neurontin] 800 mg PO Q8H 05/04/15 03/10/17 1 Day Ago History ~03/09/17 Chlorhexidine Mouthwash [Peridex] 15 ml MM BID #1 bottle 05/08/17 Unknown Rx Acetaminophen/Codeine [Tylenol 1 tab PO Q6H PRN #12 tab 06/04/17 Unknown Rx /Codeine # 3 tab] Cyclobenzaprine [Flexeril 10 MG 10 mg PO TID PRN #15 tablet 06/04/17 Unknown Rx TAB] Acetaminophen [Tylenol Extra 1,000 mg PO Q6H #24 tablet 06/27/18 Unknown Rx Strength] Ondansetron [Zofran ODT TAB] 4 mg PO Q8HR #9 tab.rapdis 06/27/18 Unknown Rx ALBUTEROL Inhaler(NF) [VENTOLIN 2 puff IH Q4-6H PRN #1 inha 12/31/18 Unknown Rx Inhaler(NF)] Albuterol Mdi (or & Nicu Only) 2 puff IH QID PRN #8.5 gram 10/15/19 Unknown Rx [ProAir HFA Inhaler] ALBUTEROL NEB's [Proventil 0.083% 2.5 mg IH TID PRN #30 neb 10/05/20 Unknown Rx NEBS] Albuterol Sulfate [Proventil Hfa] 2 inhalation IH Q4HR PRN #1 10/05/20 Unknown Rx hfa.aer.ad Azithromycin [Zithromax Z-ELIANA] 1 dose PO DAILY 5 Days tab 10/05/20 Unknown Rx Benzonatate [Tessalon Perles] 100 mg PO Q8HR PRN #20 capsule 10/05/20 Unknown Rx Prednisone [predniSONE 10 mg 10 mg PO .TAPER #1 tab.ds.pk 10/05/20 Unknown Rx (6-Day Pack, 21 Tabs)] Promethazine [Phenergan] 25 mg PO Q6HR PRN #15 tab 11/24/20 Unknown Rx Amoxicillin/K Clav Tab [Augmentin 1 tab PO Q12HR #14 tab 12/10/20 Unknown Rx 875MG TAB] oxyCODONE /ACETAMINOPHEN [Percocet 1 tab PO Q4HR PRN #12 tab 12/10/20 Unknown Rx 5/325 mg] Montelukast [Singulair] 10 mg PO QPM #14 tablet 07/08/21 Unknown Rx guaiFENesin/CODEINE [Robitussin AC] 5 ml PO Q6H PRN #120 ml 07/08/21 Unknown Rx predniSONE [Deltasone] 20 mg PO QDAY #5 tab 07/08/21 Unknown Rx guaiFENesin/CODEINE [Robitussin AC] 10 ml PO Q6HR PRN #100 ml 07/12/21 Unknown Rx Acetaminophen/Codeine [Tylenol 1 tab PO Q6H PRN #10 tab 09/15/21 Unknown Rx /Codeine # 3 tab] Fluconazole [Diflucan TAB] 150 mg PO QDAY 1 Days #3 tablet 09/15/21 Unknown Rx cephALEXin [Keflex] 500 mg PO BID 7 Days #14 capsule 09/15/21 Unknown Rx ED Physical Exam - General Limitations: No Limitations General appearance: alert, in no apparent distress - Head Head exam: Present: atraumatic, normocephalic - Eye Eye exam: Present: normal appearance - ENT ENT exam: Present: mucous membranes moist - Respiratory Respiratory exam: Present: normal lung sounds bilaterally. Absent: respiratory distress, wheezes, rales, rhonchi, stridor, chest wall tenderness, accessory muscle use, decreased breath sounds, prolonged expiratory - Cardiovascular Cardiovascular Exam: Present: regular rate, normal rhythm, normal heart sounds. Absent: systolic murmur, diastolic murmur, rubs, gallop - GI/Abdominal GI/Abdominal exam: Present: soft, normal bowel sounds. Absent: distended, tenderness, guarding, rebound, rigid - Back Exam Back exam: Present: CVA tenderness (R) ( mild). Absent: CVA tenderness (L) - Neurological Exam Neurological exam: Present: alert, oriented X3 - Psychiatric Psychiatric exam: Present: normal affect, normal mood - Skin Skin exam: Present: warm, dry, intact ED Course Vital Signs 09/15/21 09/15/21 20:08 21:04 Temperature 98.0 F Pulse Rate 83 Respiratory 18 18 Rate Blood Pressure 119/86 O2 Sat by Pulse 98 Oximetry ED Medical Decision Making - Lab Data Result diagrams: 09/15/21 21:09 09/15/21 21:09 Lab Results 09/15/21 09/15/21 09/15/21 Range/Units 21:04 21:09 21:09 WBC 8.4 (4.5-11.0) K/mm3 RBC 4.39 (3.65-5.03) M/mm3 Hgb 14.1 (10.1-14.3) gm/dl Hct 43.6 H (30.3-42.9) % MCV 99 H (79-97) fl MCH 32 (28-32) pg MCHC 33 (30-34) % RDW 13.7 (13.2-15.2) % Plt Count 198 (140-440) K/mm3 Lymph % (Auto) 28.0 (13.4-35.0) % [place] % (Auto) 9.3 H (0.0-7.3) % Eos % (Auto) 2.1 (0.0-4.3) % Baso % (Auto) 0.2 (0.0-1.8) % Lymph # (Auto) 2.4 (1.2-5.4) K/mm3 Hendry # (Auto) 0.8 (0.0-0.8) K/mm3 Eos # (Auto) 0.2 (0.0-0.4) K/mm3 Baso # (Auto) 0.0 (0.0-0.1) K/mm3 Seg Neutrophils % 60.4 (40.0-70.0) % Seg Neutrophils # 5.1 (1.8-7.7) K/mm3 Sodium 137 (137-145) mmol/L Potassium 4.5 (3.6-5.0) mmol/L Chloride 104.0 (98-107) mmol/L Carbon Dioxide 21 L (22-30) mmol/L Anion Gap 17 mmol/L BUN 20 H (7-17) mg/dL Creatinine 0.8 (0.6-1.2) mg/dL Estimated GFR > 60 ml/min BUN/Creatinine Ratio 25 % Glucose 90 (65-100) mg/dL Calcium 9.0 (8.4-10.2) mg/dL Total Bilirubin < 0.20 (0.1-1.2) mg/dL AST 19 (5-40) units/L ALT 48 (7-56) units/L Alkaline Phosphatase 68 (35-129) units/L Total Protein 6.7 (6.3-8.2) g/dL Albumin 4.3 (3.9-5) g/dL Albumin/Globulin Ratio 1.8 % Urine Color Yellow (Yellow) Urine Turbidity Clear (Clear) Urine pH 5.0 (5.0-7.0) Ur Specific [place]lett 1.024 (1.003-1.030) Urine Protein 30 mg/dl (Negative) mg/dL Urine Glucose (UA) Neg (Negative) mg/dL Urine Ketones Neg (Negative) mg/dL Urine Blood Lg (Negative) Urine Nitrite Neg (Negative) Urine Bilirubin Neg (Negative) Urine Urobilinogen < 2.0 (<2.0) mg/dL Ur Leukocyte Esterase Neg (Negative) Urine WBC (Auto) 1.0 (0.0-6.0) /HPF Urine RBC (Auto) 83.0 (0.0-6.0) /HPF U Epithel Cells (Auto) 12.0 (0-13.0) /HPF Urine WBC Clumps Few /HPF Urine Mucus Few /HPF Urine Yeast (Budding) Few /HPF - Radiology Data Radiology results: report reviewed CT ABDOMEN AND PELVIS WITHOUT CONTRAST INDICATION / CLINICAL INFORMATION: right flank, lower abd pain. TECHNIQUE: Axial CT images were obtained through the abdomen and pelvis without IV contrast. All CT scans at this location are performed using CT dose reduction for ALARA by means of automated exposure control. COMPARISON: None available. FINDINGS: LOWER CHEST: No significant abnormality. LIVER: No significant abnormality. GALLBLADDER: Absent PANCREAS: No significant abnormality. SPLEEN: No significant abnormality. ADRENALS: No significant abnormality. RIGHT KIDNEY / URETER: No significant abnormality. LEFT KIDNEY / URETER: No significant abnormality. STOMACH / SMALL BOWEL: No significant abnormality. COLON: No significant abnormality. APPENDIX: No significant abnormality. PERITONEUM: No free fluid, free air or organized collection. LYMPH NODES: No significant adenopathy. AORTA / ARTERIES/ VEINS: No significant abnormality. URINARY BLADDER: No significant abnormality. REPRODUCTIVE ORGANS: No significant abnormality. ADDITIONAL FINDINGS: None. SKELETAL SYSTEM: No significant abnormality. IMPRESSION: 1. No acute abnormality. Normal appendix. Signer Name: Roshan Howard MD Signed: 09/15/2021 9:44 PM Workstation Name: [id number] Transcribed By: SB Dictated By: ROSHAN HOWARD MD Electronically Authenticated By: ROSHAN HOWARD MD Signed Date/Time: 09/15/212143 DD/ 41 TD/TT: - Medical Decision Making Patient is a 41-year-old female presents emergency with complaints of right flank pain and lower abdominal pain that began yesterday morning. She has associated hematuria, dysuria, urinary frequency, decreased urination, nausea. She denies any fever, vomiting, diarrhea. Patient states that she has a history of kidney stones but has never seen a urologist. Past medical history of asthma, GERD, pancreatitis, ovarian cyst. Past abdominal surgical history of cholecystectomy and tubal ligation. Vitals are normal. On exam patient has mild right CVA tenderness. Labs are stable. UA shows white blood cell clumps and yeast present. CT abdomen pelvis with out contrast 1. No acute abnormality. Normal appendix. Given that patient is having flank pain with dysuria and white blood cell clumps, will cover for UTI. Discussed all results with patient answer questions. Patient given prescription for medications. Advised patient Please take medication as prescribed. Increase your fluid intake. Follow-up with your primary care doctor. Follow-up with the urologist. Return to emergency room for any new or worsening symptoms. Critical care attestation.: If time is entered above; I have spent that time in minutes in the direct care of this critically ill patient, excluding procedure time. ED Disposition Clinical Impression: Flank pain, Dysuria, Yeast detected Hematuria Qualifiers: Hematuria type: unspecified type Qualified Code(s): R31.9 - Hematuria, unspecified Abdominal pain Qualifiers: Abdominal location: lower abdomen, unspecified Qualified Code(s): R10.30 - Lower abdominal pain, unspecified UTI (urinary tract infection) Qualifiers: Urinary tract infection type: acute cystitis Hematuria presence: with hematuria Qualified Code(s): N30.01 - Acute cystitis with hematuria Disposition: HOME / SELF CARE / HOMELESS Is pt being admited?: No Does the pt Need Aspirin: No Condition: Stable Instructions: Vaginal Yeast Infection, Adult, Urinary Tract Infection, Adult, Hematuria, Adult, Abdominal Pain (ED) Additional Instructions: Please take medication as prescribed. Increase your fluid intake. Follow-up with your primary care doctor. Follow-up with the urologist. Return to emergency room for any new or worsening symptoms. Prescriptions: Fluconazole [Diflucan TAB] 150 mg PO QDAY 1 Days #3 tablet cephALEXin [Keflex] 500 mg PO BID 7 Days #14 capsule Acetaminophen/Codeine [Tylenol /Codeine # 3 tab] 1 tab PO Q6H PRN #10 tab PRN Reason: Pain , Severe (7-10) Referrals: JULIUS DEAN MD [Staff Physician] - 3-5 Days your, primary care doctor [Other] - 3-5 Days Time of Disposition: 22:13 Print Language: [place]ET[place]ESE
[2021-09-15 21:18] LABS: Bilirubin,Urine NEG (Negative); Blood,Urine LG (Negative); Color,Urine Yellow (Yellow); Mucus,Urine FEW /HPF; Urobilinogen,Urine < 2.0 mg/dL (<2.0)
[2021-09-15 21:46] LABS: Alanine Aminotransferase 48 units/L (7-56); Albumin 4.3 g/dL (3.9-5); BUN/Creatinine Ratio 25; Blood Urea Nitrogen 20 mg/dL (7-17); Hemolysis Index 29
--- NOTE | 2021-09-15 21:49 | Cat Scan Report ---
CT ABDOMEN AND PELVIS WITHOUT CONTRAST INDICATION / CLINICAL INFORMATION: right flank, lower abd pain. TECHNIQUE: Axial CT images were obtained through the abdomen and pelvis without IV contrast. All CT scans at this location are performed using CT dose reduction for ALARA by means of automated exposure control. COMPARISON: None available. FINDINGS: LOWER CHEST: No significant abnormality. LIVER: No significant abnormality. GALLBLADDER: Absent PANCREAS: No significant abnormality. SPLEEN: No significant abnormality. ADRENALS: No significant abnormality. RIGHT KIDNEY / URETER: No significant abnormality. LEFT KIDNEY / URETER: No significant abnormality. STOMACH / SMALL BOWEL: No significant abnormality. COLON: No significant abnormality. APPENDIX: No significant abnormality. PERITONEUM: No free fluid, free air or organized collection. LYMPH NODES: No significant adenopathy. AORTA / ARTERIES/ VEINS: No significant abnormality. URINARY BLADDER: No significant abnormality. REPRODUCTIVE ORGANS: No significant abnormality. ADDITIONAL FINDINGS: None. SKELETAL SYSTEM: No significant abnormality. IMPRESSION: 1. No acute abnormality. Normal appendix. Signer Name: Roshan Manuel MD Signed: 09/15/2021 9:44 PM Workstation Name: [id number]
[2021-09-15 22:10] LABS: Basophils % (Auto) 0.2 % (0.0-1.8); Eosinophils # (Auto) 0.2 K/mm3 (0.0-0.4); Eosinophils % (Auto) 2.1 % (0.0-4.3); Hematocrit 43.6 % (30.3-42.9); Hemoglobin 14.1 gm/dl (10.1-14.3); Lymphocytes # (Auto) 2.4 K/mm3 (1.2-5.4); Mean Corpuscular HGB Conc 33 % (30-34); Mean Corpuscular Volume 99 fl (79-97); Monocytes # (Auto) 0.8 K/mm3 (0.0-0.8); Monocytes % (Auto) 9.3 % (0.0-7.3); Platelet Count 198 K/mm3 (140-440); Red Blood Count 4.39 M/mm3 (3.65-5.03); Red Cell Distribution Width 13.7 % (13.2-15.2)
== END 2021-09-15 22:28 | disposition home or self-care (01) ==
LOC: ED 20:04
DX: R10.9 Unspecified abdominal pain (principal); R30.0 Dysuria; R10.30 Lower abdominal pain, unspecified; N30.01 Acute cystitis with hematuria; J45.909 Unspecified asthma, uncomplicated; Z90.49 Acquired absence of other specified parts of digestive tract; Z88.6 Allergy status to analgesic agent
CPT/HCPCS: 36415; 74176; 80053; 81001; 85025; 87086; 96374; 96375; 99284; J2270; J2405

== ENCOUNTER 2021-11-18 20:37 | Emergency (ER) | payer SELFPAY ==
[2021-11-18] MEDS ORDERED: SODIUM CHLORIDE 0.9% 1000 ML 1,000 ML IV ONE (22:25)
[2021-11-18] MEDS ORDERED: ONDANSETRON 4 MG/2 ML INJ IV ONE (22:25)
[2021-11-18] MEDS ORDERED: DICYCLOMINE 20 MG/2 ML INJ IM ONE (22:25)
--- NOTE | 2021-11-18 22:28 | Emergency Department Report ---
<KATHARINE ACEVEDO - Last Filed: 11/18/21 22:57> ED Abdominal Pain HPI - General Stated Complaint: SHARP ABD PAIN; VOMITING Time Seen by Provider: 11/18/21 22:24 - Related Data Home Medications Medication Instructions Recorded Confirmed Last Taken Gabapentin [Neurontin] 800 mg PO Q8H 05/04/15 03/10/17 1 Day Ago ~03/09/17 Previous Rx's Medication Instructions Recorded Last Taken Type Chlorhexidine Mouthwash [Peridex] 15 ml MM BID #1 bottle 05/08/17 Unknown Rx Acetaminophen/Codeine [Tylenol 1 tab PO Q6H PRN #12 tab 06/04/17 Unknown Rx /Codeine # 3 tab] Cyclobenzaprine [Flexeril 10 MG 10 mg PO TID PRN #15 tablet 06/04/17 Unknown Rx TAB] Acetaminophen [Tylenol Extra 1,000 mg PO Q6H #24 tablet 06/27/18 Unknown Rx Strength] Ondansetron [Zofran ODT TAB] 4 mg PO Q8HR #9 tab.rapdis 06/27/18 Unknown Rx ALBUTEROL Inhaler(NF) [VENTOLIN 2 puff IH Q4-6H PRN #1 inha 12/31/18 Unknown Rx Inhaler(NF)] Albuterol Mdi (or & Nicu Only) 2 puff IH QID PRN #8.5 gram 10/15/19 Unknown Rx [ProAir HFA Inhaler] ALBUTEROL NEB's [Proventil 0.083% 2.5 mg IH TID PRN #30 neb 10/05/20 Unknown Rx NEBS] Albuterol Sulfate [Proventil Hfa] 2 inhalation IH Q4HR PRN #1 10/05/20 Unknown Rx hfa.aer.ad Azithromycin [Zithromax Z-ELIANA] 1 dose PO DAILY 5 Days tab 10/05/20 Unknown Rx Benzonatate [Tessalon Perles] 100 mg PO Q8HR PRN #20 capsule 10/05/20 Unknown Rx Prednisone [predniSONE 10 mg 10 mg PO .TAPER #1 tab.ds.pk 10/05/20 Unknown Rx (6-Day Pack, 21 Tabs)] Promethazine [Phenergan] 25 mg PO Q6HR PRN #15 tab 11/24/20 Unknown Rx Amoxicillin/K Clav Tab [Augmentin 1 tab PO Q12HR #14 tab 12/10/20 Unknown Rx 875MG TAB] oxyCODONE /ACETAMINOPHEN [Percocet 1 tab PO Q4HR PRN #12 tab 12/10/20 Unknown Rx 5/325 mg] Montelukast [Singulair] 10 mg PO QPM #14 tablet 07/08/21 Unknown Rx guaiFENesin/CODEINE [Robitussin AC] 5 ml PO Q6H PRN #120 ml 07/08/21 Unknown Rx predniSONE [Deltasone] 20 mg PO QDAY #5 tab 07/08/21 Unknown Rx guaiFENesin/CODEINE [Robitussin AC] 10 ml PO Q6HR PRN #100 ml 07/12/21 Unknown Rx Acetaminophen/Codeine [Tylenol 1 tab PO Q6H PRN #10 tab 09/15/21 Unknown Rx /Codeine # 3 tab] Fluconazole [Diflucan TAB] 150 mg PO QDAY 1 Days #3 tablet 09/15/21 Unknown Rx cephALEXin [Keflex] 500 mg PO BID 7 Days #14 capsule 09/15/21 Unknown Rx Hyoscyamine Subl [Levsin Sl 0.125 0.125 mg SL Q6HR PRN #20 tab 11/19/21 Unknown Rx TAB] Ondansetron [Zofran ODT TAB] 8 mg PO Q12HR #14 tab.rapdis 11/19/21 Unknown Rx Allergies Allergy/AdvReac Type Severity Reaction Status Date / Time ketorolac tromethamine Allergy Rash Verified 07/12/21 22:04 [From Toradol] ED Past Medical Hx - Medications Home Medications: Home Medications Medication Instructions Recorded Confirmed Last Taken Type Gabapentin [Neurontin] 800 mg PO Q8H 05/04/15 03/10/17 1 Day Ago History ~03/09/17 Chlorhexidine Mouthwash [Peridex] 15 ml MM BID #1 bottle 05/08/17 Unknown Rx Acetaminophen/Codeine [Tylenol 1 tab PO Q6H PRN #12 tab 06/04/17 Unknown Rx /Codeine # 3 tab] Cyclobenzaprine [Flexeril 10 MG 10 mg PO TID PRN #15 tablet 06/04/17 Unknown Rx TAB] Acetaminophen [Tylenol Extra 1,000 mg PO Q6H #24 tablet 06/27/18 Unknown Rx Strength] Ondansetron [Zofran ODT TAB] 4 mg PO Q8HR #9 tab.rapdis 06/27/18 Unknown Rx ALBUTEROL Inhaler(NF) [VENTOLIN 2 puff IH Q4-6H PRN #1 inha 12/31/18 Unknown Rx Inhaler(NF)] Albuterol Mdi (or & Nicu Only) 2 puff IH QID PRN #8.5 gram 10/15/19 Unknown Rx [ProAir HFA Inhaler] ALBUTEROL NEB's [Proventil 0.083% 2.5 mg IH TID PRN #30 neb 10/05/20 Unknown Rx NEBS] Albuterol Sulfate [Proventil Hfa] 2 inhalation IH Q4HR PRN #1 10/05/20 Unknown Rx hfa.aer.ad Azithromycin [Zithromax Z-ELIANA] 1 dose PO DAILY 5 Days tab 10/05/20 Unknown Rx Benzonatate [Tessalon Perles] 100 mg PO Q8HR PRN #20 capsule 10/05/20 Unknown Rx Prednisone [predniSONE 10 mg 10 mg PO .TAPER #1 tab.ds.pk 10/05/20 Unknown Rx (6-Day Pack, 21 Tabs)] Promethazine [Phenergan] 25 mg PO Q6HR PRN #15 tab 11/24/20 Unknown Rx Amoxicillin/K Clav Tab [Augmentin 1 tab PO Q12HR #14 tab 12/10/20 Unknown Rx 875MG TAB] oxyCODONE /ACETAMINOPHEN [Percocet 1 tab PO Q4HR PRN #12 tab 12/10/20 Unknown Rx 5/325 mg] Montelukast [Singulair] 10 mg PO QPM #14 tablet 07/08/21 Unknown Rx guaiFENesin/CODEINE [Robitussin AC] 5 ml PO Q6H PRN #120 ml 07/08/21 Unknown Rx predniSONE [Deltasone] 20 mg PO QDAY #5 tab 07/08/21 Unknown Rx guaiFENesin/CODEINE [Robitussin AC] 10 ml PO Q6HR PRN #100 ml 07/12/21 Unknown Rx Acetaminophen/Codeine [Tylenol 1 tab PO Q6H PRN #10 tab 09/15/21 Unknown Rx /Codeine # 3 tab] Fluconazole [Diflucan TAB] 150 mg PO QDAY 1 Days #3 tablet 09/15/21 Unknown Rx cephALEXin [Keflex] 500 mg PO BID 7 Days #14 capsule 09/15/21 Unknown Rx Hyoscyamine Subl [Levsin Sl 0.125 0.125 mg SL Q6HR PRN #20 tab 11/19/21 Unknown Rx TAB] Ondansetron [Zofran ODT TAB] 8 mg PO Q12HR #14 tab.rapdis 11/19/21 Unknown Rx ED Medical Decision Making - Lab Data Vital Signs 11/18/21 22:10 Temperature 98.6 F Pulse Rate 128 H Respiratory 18 Rate Blood Pressure 111/78 O2 Sat by Pulse 98 Oximetry - EKG Data -: EKG Interpreted by Sc EKG shows normal: sinus rhythm Rate: tachycardia - EKG Data 11/18/21 22:57 The EKG is interpreted at 22: 51 Sinus rhythm, tachycardia, rate 117 bpm. Normal axis, normal intervals, normal P wave axis. Not a STEMI. Low voltage. - Radiology Data Radiology results: pending ED Disposition Clinical Impression: Abdominal pain, Normal findings on CT scan Disposition: HOME / SELF CARE / HOMELESS Condition: Stable Instructions: Abdominal Pain, Adult, Pain Without a Known Cause <LEONA BREEN - Last Filed: 11/19/21 04:16> ED Abdominal Pain HPI - History of Present Illness Initial Comments: Four 41-year-old female with elevated BMI and past medical history of recurrent pancreatitis as well as gallbladder disease resulting in cholecystectomy presents emerged department complaining of a 1 day history of right upper quadrant pain associated with nausea and vomiting. Pain is sharp and radiates to the right hypochondriac region through to her back and worse with certain positions and palpation is no alleviating factors recognized at this point. She reports no hemoptysis no hematemesis hematochezia no melena. Reports no traumatic events. No hematuria or dysuria no fever, chills, sweats. No contact with the coronavirus to her knowledge. Location: RUQ Consistency: constant Associated Symptoms: denies: diarrhea, fever, chills, hematemesis, anorexia, syncope ED Review of Systems ROS: Stated complaint: SHARP ABD PAIN; VOMITING Other details as noted in HPI Comment: All other systems reviewed and negative ED Past Medical Hx - Past Medical History Hx Hypertension: No (reports BP usually "runs low") Hx Heart Attack/AMI: No Hx GERD: Yes Hx Liver Disease: No Hx Renal Disease: No Hx Seizures: Yes (has had seziures associated with EtOH withdrawal) Hx Kidney Stones: Yes Hx Asthma: Yes (albuterol 2x/wk) Hx Tuberculosis: No Hx HIV: No Additional medical history: Pancreatitis, cyst on right ovary, Vaginal delivery x 2. Gall bladder disease - Surgical History Hx Cholecystectomy: Yes Additional Surgical History: tubaligation - Social History Smoking Status: Never Smoker Substance Use Type: None ED Physical Exam - General General appearance: alert, in no apparent distress - Head Head exam: Present: atraumatic, normocephalic - Eye Eye exam: Present: normal appearance - ENT ENT exam: Present: mucous membranes moist - Neck Neck exam: Present: normal inspection - Respiratory Respiratory exam: Present: normal lung sounds bilaterally. Absent: respiratory distress - Cardiovascular Cardiovascular Exam: Present: regular rate, normal rhythm. Absent: systolic murmur, diastolic murmur, rubs, gallop - GI/Abdominal GI/Abdominal exam: Present: soft, tenderness (To the right upper quadrant and epigastric region. No Rovsing, no Niño Albert, no Evan sign. No CVA tenderness noted), normal bowel sounds - Extremities Exam Extremities exam: Present: normal inspection - Back Exam Back exam: Present: normal inspection - Neurological Exam Neurological exam: Present: alert, oriented X3 - Psychiatric Psychiatric exam: Present: normal affect, normal mood - Skin Skin exam: Present: warm, dry, intact, normal color. Absent: rash ED Course Vital Signs 11/18/21 11/18/21 11/19/21 22:10 23:05 00:57 Temperature 98.6 F Pulse Rate 128 H Respiratory 18 16 Rate Blood Pressure 111/78 O2 Sat by Pulse 98 98 Oximetry 11/19/21 11/19/21 11/19/21 01:07 01:16 01:30 Temperature Pulse Rate 94 H 104 H 87 Respiratory 14 16 14 Rate Blood Pressure 93/57 103/59 O2 Sat by Pulse 95 95 94 Oximetry 11/19/21 11/19/21 11/19/21 01:46 02:00 02:16 Temperature Pulse Rate 88 89 87 Respiratory 17 15 14 Rate Blood Pressure 107/73 105/69 102/66 O2 Sat by Pulse 97 97 98 Oximetry 11/19/21 11/19/21 02:30 02:46 Temperature Pulse Rate 87 99 H Respiratory 16 15 Rate Blood Pressure 108/66 112/68 O2 Sat by Pulse 97 95 Oximetry ED Medical Decision Making - Lab Data Result diagrams: 11/18/21 22:50 11/18/21 22:50 - Radiology Data interpreted by me: [facility] [address] [place] [address] Cat Scan Report Signed Patient: JANIYA TORRES MR#: [id number] : 1980 Acct:[id number] Age/Sex: 41 / F ADM Date: 11/18/21 Loc: ED Attending Dr: Ordering Physician: ALBER CRANDALL Date of Service: 11/18/21 Procedure(s): CT abdomen pelvis w con Accession Number(s): [id number] cc: ALBER CRANDALL CT OF THE ABDOMEN AND PELVIS WITH INTRAVENOUS CONTRAST INDICATION / CLINICAL INFORMATION: Abdominal Pain. TECHNIQUE: The patient received 100 cc Omnipaque [address] scans at this location are performed using CT dose reduction for ALARA by means of automated exposure control. COMPARISON: 09/15/21. FINDINGS: ABDOMEN: The gallbladder is surgically absent. The liver, spleen, bile ducts, pancreas, adrenal glands, kidneys and bowel demonstrate no significant abnormality. No adenopathy is present. No acute vascular abnormality is seen. The lung bases are clear. PELVIS: The distal ureters and urinary bladder are normal. The uterus and adnexal regions are unremarkable. A normal appendix is present and there is no evidence of diverticulitis. No abnormal mass or fluid collection is seen. I do not identify a hernia. No acute osseous abnormality is present. IMPRESSION: No acute abnormality. Signer Name: Kwabena Melendez MD Signed: 11/19/2021 1:05 AM Workstation Name: [id number] Transcribed By: RT Dictated By: Kwabena Melendez MD Electronically Authenticated By: Kwabena Melendez MD Signed Date/Time: 11/19/21104 DD/ 1 TD/TT: - Medical Decision Making This patient presents with abdominal pain of unclear etiology. A CT scan was performed to evaluate for potential causes of the abdominal pain, however, neither the clinical exam nor the CT has identified an emergent etiology for the abdominal pain. Specifically, given the benign exam, the laboratory studies, and unremarkable CT, I have a very low suspicion for appendicitis, ischemic bowel, bowel perforation, or any other life threatening disease. I have discussed with the patient the level of uncertainty with undifferentiated abdominal pain and clearly explained the need to follow-up as noted on the discharge instructions, or return to the Emergency Department immediately if the pain worsens, develops fever, persistent and uncontrollable vomiting, or for any new symptoms or concerns. Heart rate 99 at time of discharge Critical care attestation.: If time is entered above; I have spent that time in minutes in the direct care of this critically ill patient, excluding procedure time. ED Disposition Is pt being admited?: No Does the pt Need Aspirin: No
[2021-11-18] MEDS ORDERED: HYDROmorphone 1 MG/1 ML INJ IV ONE ×2 (22:37→23:32)
--- NOTE | 2021-11-18 22:39 | Event Note ---
Date of service: 11/18/21 Face to Face: For this encounter I have reviewed the PA/SHIRT MAKER documentation, treatment plan, medical decision making, and I had face to face time with this patient. Patient is a 41-year-old female presenting with acute right upper quadrant abdominal pain that radiates to the back with nausea and vomiting. Has a history of cholecystectomy performed at this hospital. Actively vomiting, appears very uncomfortable, and markedly tachycardic. Place patient on threat monitoring analyst, obtain appropriate laboratory studies, treat with pain medication, nausea medication, obtain CT scan of the abdomen pelvis, and reassess. Discussed this with the patient. She is agreeable to this plan of care. Disposition as per diagnostics. She reports that she is not Leukocytosis is likely a stress reaction. Vital Signs 11/18/21 22:10 Temperature 98.6 F Pulse Rate 128 H Respiratory 18 Rate Blood Pressure 111/78 O2 Sat by Pulse 98 Oximetry Lab Results 11/18/21 11/18/21 11/18/21 Range/Units 22:50 22:50 22:50 WBC 14.1 H (4.5-11.0) K/mm3 RBC 4.43 (3.65-5.03) M/mm3 Hgb 14.5 H (10.1-14.3) gm/dl Hct 42.8 (30.3-42.9) % MCV 97 (79-97) fl MCH 33 H (28-32) pg MCHC 34 (30-34) % RDW 13.3 (13.2-15.2) % Plt Count 244 (140-440) K/mm3 Lymph % (Auto) 26.9 (13.4-35.0) % [place] % (Auto) 7.9 H (0.0-7.3) % Eos % (Auto) 0.5 (0.0-4.3) % Baso % (Auto) 0.2 (0.0-1.8) % Lymph # (Auto) 3.8 (1.2-5.4) K/mm3 [place] # (Auto) 1.1 H (0.0-0.8) K/mm3 Eos # (Auto) 0.1 (0.0-0.4) K/mm3 Baso # (Auto) 0.0 (0.0-0.1) K/mm3 Seg Neutrophils % 64.5 (40.0-70.0) % Seg Neutrophils # 9.1 H (1.8-7.7) K/mm3 Sodium 137 (137-145) mmol/L Potassium 4.0 (3.6-5.0) mmol/L Chloride 99.7 (98-107) mmol/L Carbon Dioxide 23 (22-30) mmol/L Anion Gap 18 mmol/L BUN 22 H (7-17) mg/dL Creatinine 0.9 (0.6-1.2) mg/dL Estimated GFR > 60 ml/min BUN/Creatinine Ratio 24 % Glucose 123 H (65-100) mg/dL Calcium 9.1 (8.4-10.2) mg/dL Total Bilirubin < 0.20 (0.1-1.2) mg/dL Direct Bilirubin < 0.2 (0-0.2) mg/dL Indirect Bilirubin 0.0 mg/dL AST 19 (5-40) units/L ALT 36 (7-56) units/L Alkaline Phosphatase 80 (35-129) units/L Total Protein 7.5 (6.3-8.2) g/dL Albumin 4.3 (3.9-5) g/dL Albumin/Globulin Ratio 1.3 % Lipase 32 (13-60) units/L HCG, Qual Negative (Negative)
[2021-11-18 23:01] LABS: Basophils % (Auto) 0.2 % (0.0-1.8); Eosinophils # (Auto) 0.1 K/mm3 (0.0-0.4); Eosinophils % (Auto) 0.5 % (0.0-4.3); Hematocrit 42.8 % (30.3-42.9); Hemoglobin 14.5 gm/dl (10.1-14.3); Lymphocytes # (Auto) 3.8 K/mm3 (1.2-5.4); Lymphocytes % (Auto) 26.9 % (13.4-35.0); Mean Corpuscular HGB Conc 34 % (30-34); Mean Corpuscular Volume 97 fl (79-97); Monocytes # (Auto) 1.1 K/mm3 (0.0-0.8); Monocytes % (Auto) 7.9 % (0.0-7.3); Platelet Count 244 K/mm3 (140-440); Red Blood Count 4.43 M/mm3 (3.65-5.03); Red Cell Distribution Width 13.3 % (13.2-15.2)
[2021-11-18 23:24] LABS: Alanine Aminotransferase 36 units/L (7-56); Albumin 4.3 g/dL (3.9-5); BUN/Creatinine Ratio 24; Blood Urea Nitrogen 22 mg/dL (7-17); Calcium 9.1 mg/dL (8.4-10.2); Hemolysis Index 6
[2021-11-18 23:37] LABS: Bilirubin,Direct < 0.2 mg/dL (0-0.2)
[2021-11-19] MEDS ORDERED: METOCLOPRAMIDE 10 MG/2 ML INJ IV ONE (00:10)
--- NOTE | 2021-11-19 01:10 | Cat Scan Report ---
CT OF THE ABDOMEN AND PELVIS WITH INTRAVENOUS CONTRAST INDICATION / CLINICAL INFORMATION: Abdominal Pain. TECHNIQUE: The patient received 100 cc Omnipaque [address] scans at this location are performed using CT dose reduction for ALARA by means of automated exposure control. COMPARISON: 09/15/21. FINDINGS: ABDOMEN: The gallbladder is surgically absent. The liver, spleen, bile ducts, pancreas, adrenal gland s, kidneys and bowel demonstrate no significant abnormality. No adenopathy is present. No acute vascu lar abnormality is seen. The lung bases are clear. PELVIS: The distal ureters and urinary bladder are normal. The uterus and adnexal regions are unremar kable. A normal appendix is present and there is no evidence of diverticulitis. No abnormal mass or f luid collection is seen. I do not identify a hernia. No acute osseous abnormality is present. IMPRESSION: No acute abnormality. Signer Name: Kwabena Melendez MD Signed: 11/19/2021 1:05 AM Workstation Name: [id number]
[2021-11-19] MEDS ORDERED: ONDANSETRON 4 MG/2 ML INJ IV ONE (02:11)
[2021-11-19 02:29] LABS: Bacteria,Urine 1+ /HPF (Negative); Bilirubin,Urine NEG (Negative); Blood,Urine MOD (Negative); Color,Urine Yellow (Yellow); Mucus,Urine 1+ /HPF; Urobilinogen,Urine < 2.0 mg/dL (<2.0)
[2021-11-19 02:31] LABS: Protein,Urine >500 mg/dL (Negative)
[2021-11-19 03:24] VITALS: BP 112/68
--- NOTE | 2021-11-19 09:10 | Electrocardiograph Report ---
[facility] Test Date: 2021-11-18 Test Time: 22:51:30 Pat Name: JANUARY BRIAN Department: Room: Gender: F Consulting Business Developer: MARCO : 1980 Requested By: KATHARINE ACEVEDO Order Number: [id number] Reading MD: Mayda Oliveira Measurements Intervals Spiro Rate: 117 P: 78 GA: 136 QRS: 64 QRSD: 89 T: 50 QT: 313 QTc: 436 Interpretive Statements Sinus tachycardia Low voltage, precordial leads No previous ECG available for comparison Electronically Signed On 11-19-2021 9:09:54 EST by Mayda Oliveira
== END 2021-11-19 04:47 | disposition home or self-care (01) ==
LOC: ED 20:37
DX: R10.11 Right upper quadrant pain (principal); R11.2 Nausea with vomiting, unspecified; K21.9 Gastro-esophageal reflux disease without esophagitis; J45.909 Unspecified asthma, uncomplicated
CPT/HCPCS: 36415; 74177; 80048; 80076; 81001; 83690; 84703; 85025; 93005; 93010; 96361; 96374; 96375; 96376; 99284; J1170; J2405; J2765; J7030; Q9967; Q0162

== ENCOUNTER 2022-01-17 02:25 | Emergency (ER) | payer SELFPAY ==
--- NOTE | 2022-01-17 03:26 | XRay Report ---
CHEST 2 VIEWS INDICATION / CLINICAL INFORMATION: CHEST PAIN. COMPARISON: Chest x-ray 07/08/2021 FINDINGS: SUPPORT DEVICES: None. HEART / MEDIASTINUM: No significant abnormality. LUNGS / PLEURA: No significant pulmonary or pleural abnormality. No pneumothorax. BONES: No significant osseous abnormality. ADDITIONAL FINDINGS: No significant additional findings. IMPRESSION: 1. No active cardiopulmonary disease. Signer Name: Memo Garber II, MD Signed: 01/17/2022 3:21 AM Workstation Name: [id number]
[2022-01-17 03:29] LABS: Bilirubin,Urine NEG (Negative); Blood,Urine LG (Negative); Color,Urine Straw (Yellow); Urobilinogen,Urine < 2.0 mg/dL (<2.0)
[2022-01-17 04:58] LABS: Basophils % (Auto) 0.3 % (0.0-1.8); Eosinophils # (Auto) 0.1 K/mm3 (0.0-0.4); Eosinophils % (Auto) 1.1 % (0.0-4.3); Hematocrit 41.1 % (30.3-42.9); Hemoglobin 13.4 gm/dl (10.1-14.3); Lymphocytes # (Auto) 2.9 K/mm3 (1.2-5.4); Mean Corpuscular HGB Conc 33 % (30-34); Mean Corpuscular Volume 99 fl (79-97); Monocytes % (Auto) 10.5 % (0.0-7.3); Platelet Count 190 K/mm3 (140-440); Red Blood Count 4.15 M/mm3 (3.65-5.03); Red Cell Distribution Width 13.7 % (13.2-15.2)
[2022-01-17 05:26] LABS: Alanine Aminotransferase 34 units/L (7-56); BUN/Creatinine Ratio 25; Blood Urea Nitrogen 20 mg/dL (7-17); Calcium 8.8 mg/dL (8.4-10.2); Hemolysis Index 19
[2022-01-17 05:27] VITALS: BP 121/80
[2022-01-17] MEDS ORDERED: LORazepam 2 MG/ML VIAL IM STA (05:33)
--- NOTE | 2022-01-17 06:53 | Emergency Department Report ---
ED General Adult HPI - General Chief complaint: Chest Pain Stated complaint: HANDS SWOLLEN,DIZZY,HARD TO BREATHE Time Seen by Provider: 01/17/22 03:23 Source: patient Mode of arrival: Ambulatory Limitations: No Limitations - History of Present Illness Initial comments: 41-year-old female smoker with elevated BMI presents to the emergency department complaining of waking up feeling short of breath, lightheaded tingly and had vague chest discomfort has been going on off and on for the last 6 few weeks has been progressively worsening since the onset. She reports no traumatic events, no syncope, no hemoptysis no hematemesis hematochezia, no nausea or vomiting. She states she often feels like she wakes up not not breathing. -: Gradual Radiation: non-radiation Quality: dull Consistency: constant Improves with: none Worsens with: cold therapy Treatments Prior to Arrival: none - Related Data Home Medications Medication Instructions Recorded Confirmed Last Taken Gabapentin [Neurontin] 800 mg PO Q8H 05/04/15 03/10/17 1 Day Ago ~03/09/17 Previous Rx's Medication Instructions Recorded Last Taken Type Chlorhexidine Mouthwash [Peridex] 15 ml MM BID #1 bottle 05/08/17 Unknown Rx Acetaminophen/Codeine [Tylenol 1 tab PO Q6H PRN #12 tab 06/04/17 Unknown Rx /Codeine # 3 tab] Cyclobenzaprine [Flexeril 10 MG 10 mg PO TID PRN #15 tablet 06/04/17 Unknown Rx TAB] Acetaminophen [Tylenol Extra 1,000 mg PO Q6H #24 tablet 06/27/18 Unknown Rx Strength] Ondansetron [Zofran ODT TAB] 4 mg PO Q8HR #9 tab.rapdis 06/27/18 Unknown Rx ALBUTEROL Inhaler(NF) [VENTOLIN 2 puff IH Q4-6H PRN #1 inha 12/31/18 Unknown Rx Inhaler(NF)] Albuterol Mdi (or & Nicu Only) 2 puff IH QID PRN #8.5 gram 10/15/19 Unknown Rx [ProAir HFA Inhaler] ALBUTEROL NEB's [Proventil 0.083% 2.5 mg IH TID PRN #30 neb 10/05/20 Unknown Rx NEBS] Albuterol Sulfate [Proventil Hfa] 2 inhalation IH Q4HR PRN #1 10/05/20 Unknown Rx hfa.aer.ad Azithromycin [Zithromax Z-ELIANA] 1 dose PO DAILY 5 Days tab 10/05/20 Unknown Rx Benzonatate [Tessalon Perles] 100 mg PO Q8HR PRN #20 capsule 10/05/20 Unknown Rx Prednisone [predniSONE 10 mg 10 mg PO .TAPER #1 tab.ds.pk 10/05/20 Unknown Rx (6-Day Pack, 21 Tabs)] Promethazine [Phenergan] 25 mg PO Q6HR PRN #15 tab 11/24/20 Unknown Rx Amoxicillin/K Clav Tab [Augmentin 1 tab PO Q12HR #14 tab 12/10/20 Unknown Rx 875MG TAB] oxyCODONE /ACETAMINOPHEN [Percocet 1 tab PO Q4HR PRN #12 tab 12/10/20 Unknown Rx 5/325 mg] Montelukast [Singulair] 10 mg PO QPM #14 tablet 07/08/21 Unknown Rx guaiFENesin/CODEINE [Robitussin AC] 5 ml PO Q6H PRN #120 ml 07/08/21 Unknown Rx predniSONE [Deltasone] 20 mg PO QDAY #5 tab 07/08/21 Unknown Rx guaiFENesin/CODEINE [Robitussin AC] 10 ml PO Q6HR PRN #100 ml 07/12/21 Unknown Rx Acetaminophen/Codeine [Tylenol 1 tab PO Q6H PRN #10 tab 09/15/21 Unknown Rx /Codeine # 3 tab] Fluconazole [Diflucan TAB] 150 mg PO QDAY 1 Days #3 tablet 09/15/21 Unknown Rx cephALEXin [Keflex] 500 mg PO BID 7 Days #14 capsule 09/15/21 Unknown Rx Hyoscyamine Subl [Levsin Sl 0.125 0.125 mg SL Q6HR PRN #20 tab 11/19/21 Unknown Rx TAB] Ondansetron [Zofran ODT TAB] 8 mg PO Q12HR #14 tab.rapdis 11/19/21 Unknown Rx Allergies Allergy/AdvReac Type Severity Reaction Status Date / Time ketorolac tromethamine Allergy Rash Verified 07/12/21 22:04 [From Toradol] ED Review of Systems ROS: Stated complaint: HANDS SWOLLEN,DIZZY,HARD TO BREATHE Other details as noted in HPI Comment: All other systems reviewed and negative ED Past Medical Hx - Past Medical History Hx Hypertension: No (reports BP usually "runs low") Hx Heart Attack/AMI: No Hx GERD: Yes Hx Liver Disease: No Hx Renal Disease: No Hx Seizures: Yes (has had seziures associated with EtOH withdrawal) Hx Kidney Stones: Yes Hx Asthma: Yes (albuterol 2x/wk) Hx Tuberculosis: No Hx HIV: No Additional medical history: Pancreatitis, cyst on right ovary, Vaginal delivery x 2. Gall bladder disease - Surgical History Hx Cholecystectomy: Yes Additional Surgical History: tubaligation - Social History Smoking Status: Never Smoker Substance Use Type: None - Medications Home Medications: Home Medications Medication Instructions Recorded Confirmed Last Taken Type Gabapentin [Neurontin] 800 mg PO Q8H 05/04/15 03/10/17 1 Day Ago History ~03/09/17 Chlorhexidine Mouthwash [Peridex] 15 ml MM BID #1 bottle 05/08/17 Unknown Rx Acetaminophen/Codeine [Tylenol 1 tab PO Q6H PRN #12 tab 06/04/17 Unknown Rx /Codeine # 3 tab] Cyclobenzaprine [Flexeril 10 MG 10 mg PO TID PRN #15 tablet 06/04/17 Unknown Rx TAB] Acetaminophen [Tylenol Extra 1,000 mg PO Q6H #24 tablet 06/27/18 Unknown Rx Strength] Ondansetron [Zofran ODT TAB] 4 mg PO Q8HR #9 tab.rapdis 06/27/18 Unknown Rx ALBUTEROL Inhaler(NF) [VENTOLIN 2 puff IH Q4-6H PRN #1 inha 12/31/18 Unknown Rx Inhaler(NF)] Albuterol Mdi (or & Nicu Only) 2 puff IH QID PRN #8.5 gram 10/15/19 Unknown Rx [ProAir HFA Inhaler] ALBUTEROL NEB's [Proventil 0.083% 2.5 mg IH TID PRN #30 neb 10/05/20 Unknown Rx NEBS] Albuterol Sulfate [Proventil Hfa] 2 inhalation IH Q4HR PRN #1 10/05/20 Unknown Rx hfa.aer.ad Azithromycin [Zithromax Z-ELIANA] 1 dose PO DAILY 5 Days tab 12/16/20 Unknown Rx Benzonatate [Tessalon Perles] 100 mg PO Q8HR PRN #20 capsule 10/05/20 Unknown Rx Prednisone [predniSONE 10 mg 10 mg PO .TAPER #1 tab.ds.pk 10/05/20 Unknown Rx (6-Day Pack, 21 Tabs)] Promethazine [Phenergan] 25 mg PO Q6HR PRN #15 tab 11/24/20 Unknown Rx Amoxicillin/K Clav Tab [Augmentin 1 tab PO Q12HR #14 tab 12/10/20 Unknown Rx 875MG TAB] oxyCODONE /ACETAMINOPHEN [Percocet 1 tab PO Q4HR PRN #12 tab 12/10/20 Unknown Rx 5/325 mg] Montelukast [Singulair] 10 mg PO QPM #14 tablet 07/08/21 Unknown Rx guaiFENesin/CODEINE [Robitussin AC] 5 ml PO Q6H PRN #120 ml 07/08/21 Unknown Rx predniSONE [Deltasone] 20 mg PO QDAY #5 tab 07/08/21 Unknown Rx guaiFENesin/CODEINE [Robitussin AC] 10 ml PO Q6HR PRN #100 ml 07/12/21 Unknown Rx Acetaminophen/Codeine [Tylenol 1 tab PO Q6H PRN #10 tab 09/15/21 Unknown Rx /Codeine # 3 tab] Fluconazole [Diflucan TAB] 150 mg PO QDAY 1 Days #3 tablet 09/15/21 Unknown Rx cephALEXin [Keflex] 500 mg PO BID 7 Days #14 capsule 09/15/21 Unknown Rx Hyoscyamine Subl [Levsin Sl 0.125 0.125 mg SL Q6HR PRN #20 tab 11/19/21 Unknown Rx TAB] Ondansetron [Zofran ODT TAB] 8 mg PO Q12HR #14 tab.rapdis 11/19/21 Unknown Rx ED Physical Exam - General Limitations: No Limitations General appearance: alert, in no apparent distress - Head Head exam: Present: atraumatic, normocephalic - Eye Eye exam: Present: normal appearance, PERRL, EOMI - ENT ENT exam: Present: mucous membranes moist - Neck Neck exam: Present: normal inspection - Respiratory Respiratory exam: Present: normal lung sounds bilaterally. Absent: respiratory distress - Cardiovascular Cardiovascular Exam: Present: regular rate, normal rhythm. Absent: systolic murmur, diastolic murmur, rubs, gallop - GI/Abdominal GI/Abdominal exam: Present: soft, normal bowel sounds - Extremities Exam Extremities exam: Present: normal inspection - Back Exam Back exam: Present: normal inspection - Neurological Exam Neurological exam: Present: alert, oriented X3 - Psychiatric Psychiatric exam: Present: normal affect, normal mood - Skin Skin exam: Present: warm, dry, intact, normal color. Absent: rash ED Course Vital Signs 01/17/22 01/17/22 02:28 05:24 Temperature 97.8 F 98.0 F Pulse Rate 75 Respiratory 20 18 Rate Blood Pressure 132/89 121/80 O2 Sat by Pulse 98 Oximetry ED Medical Decision Making - Lab Data Result diagrams: 01/17/22 03:16 01/17/22 03:16 Lab Results 01/17/22 01/17/22 01/17/22 Range/Units 03:16 03:16 05:26 WBC 9.6 (4.5-11.0) K/mm3 RBC 4.15 (3.65-5.03) M/mm3 Hgb 13.4 (10.1-14.3) gm/dl Hct 41.1 (30.3-42.9) % MCV 99 H (79-97) fl MCH 32 (28-32) pg MCHC 33 (30-34) % RDW 13.7 (13.2-15.2) % Plt Count 190 (140-440) K/mm3 Lymph % (Auto) 30.0 (13.4-35.0) % [place] % (Auto) 10.5 H (0.0-7.3) % Eos % (Auto) 1.1 (0.0-4.3) % Baso % (Auto) 0.3 (0.0-1.8) % Lymph # (Auto) 2.9 (1.2-5.4) K/mm3 [place] # (Auto) 1.0 H (0.0-0.8) K/mm3 Eos # (Auto) 0.1 (0.0-0.4) K/mm3 Baso # (Auto) 0.0 (0.0-0.1) K/mm3 Seg Neutrophils % 58.1 (40.0-70.0) % Seg Neutrophils # 5.6 (1.8-7.7) K/mm3 Sodium 139 (137-145) mmol/L Potassium 4.4 (3.6-5.0) mmol/L Chloride 103.6 (98-107) mmol/L Carbon Dioxide 26 (22-30) mmol/L Anion Gap 14 mmol/L BUN 20 H (7-17) mg/dL Creatinine 0.8 (0.6-1.2) mg/dL Estimated GFR > 60 ml/min BUN/Creatinine Ratio 25 % Glucose 75 (65-100) mg/dL POC Glucose 120 H (70-105) mg/dL Calcium 8.8 (8.4-10.2) mg/dL Total Bilirubin < 0.20 (0.1-1.2) mg/dL AST 19 (5-40) units/L ALT 34 (7-56) units/L Alkaline Phosphatase 62 (35-129) units/L Troponin T < 0.010 (0.00-0.029) ng/mL Total Protein 6.4 (6.3-8.2) g/dL Albumin 4.0 (3.9-5) g/dL Albumin/Globulin Ratio 1.7 % Urine Color (Yellow) Urine Turbidity (Clear) Urine pH (5.0-7.0) Ur Specific [place] (1.003-1.030) Urine Protein (Negative) mg/dL Urine Glucose (UA) (Negative) mg/dL Urine Ketones (Negative) mg/dL Urine Blood (Negative) Urine Nitrite (Negative) Urine Bilirubin (Negative) Urine Urobilinogen (<2.0) mg/dL Ur Leukocyte Esterase (Negative) Urine WBC (Auto) (0.0-6.0) /HPF Urine RBC (Auto) (0.0-6.0) /HPF U Epithel Cells (Auto) (0-13.0) /HPF 01/17/22 01/17/22 Range/Units 05:38 Unknown WBC (4.5-11.0) K/mm3 RBC (3.65-5.03) M/mm3 Hgb (10.1-14.3) gm/dl Hct (30.3-42.9) % MCV (79-97) fl MCH (28-32) pg MCHC (30-34) % RDW (13.2-15.2) % Plt Count (140-440) K/mm3 Lymph % (Auto) (13.4-35.0) % [place] % (Auto) (0.0-7.3) % Eos % (Auto) (0.0-4.3) % Baso % (Auto) (0.0-1.8) % Lymph # (Auto) (1.2-5.4) K/mm3 [place] # (Auto) (0.0-0.8) K/mm3 Eos # (Auto) (0.0-0.4) K/mm3 Baso # (Auto) (0.0-0.1) K/mm3 Seg Neutrophils % (40.0-70.0) % Seg Neutrophils # (1.8-7.7) K/mm3 Sodium (137-145) mmol/L Potassium (3.6-5.0) mmol/L Chloride (98-107) mmol/L Carbon Dioxide (22-30) mmol/L Anion Gap mmol/L BUN (7-17) mg/dL Creatinine (0.6-1.2) mg/dL Estimated GFR ml/min BUN/Creatinine Ratio % Glucose (65-100) mg/dL POC Glucose (70-105) mg/dL Calcium (8.4-10.2) mg/dL Total Bilirubin (0.1-1.2) mg/dL AST (5-40) units/L ALT (7-56) units/L Alkaline Phosphatase (35-129) units/L Troponin T < 0.010 (0.00-0.029) ng/mL Total Protein (6.3-8.2) g/dL Albumin (3.9-5) g/dL Albumin/Globulin Ratio % Urine Color Straw (Yellow) Urine Turbidity Clear (Clear) Urine pH 6.0 (5.0-7.0) Ur Specific [place] 1.012 (1.003-1.030) Urine Protein 30 mg/dl (Negative) mg/dL Urine Glucose (UA) Neg (Negative) mg/dL Urine Ketones Neg (Negative) mg/dL Urine Blood Lg (Negative) Urine Nitrite Neg (Negative) Urine Bilirubin Neg (Negative) Urine Urobilinogen < 2.0 (<2.0) mg/dL Ur Leukocyte Esterase Neg (Negative) Urine WBC (Auto) 2.0 (0.0-6.0) /HPF Urine RBC (Auto) 32.0 (0.0-6.0) /HPF U Epithel Cells (Auto) 2.0 (0-13.0) /HPF - Radiology Data Radiology results: report reviewed [facility] [address] [place] [address] XRay Report Signed Patient: JANIYA TORRES MR#: [id number] : 1980 Acct:[id number] Age/Sex: 41 / F ADM Date: 01/17/22 Loc: ED Attending Dr: Ordering Physician: MIRIAM PINTO MD Date of Service: 01/17/22 Procedure(s): XR chest routine 2V Accession Number(s): [id number] cc: ED MD BLAIR Fluoro Time In Minutes: CHEST 2 VIEWS INDICATION / CLINICAL INFORMATION: CHEST PAIN. COMPARISON: Chest x-ray 07/08/2021 FINDINGS: SUPPORT DEVICES: None. HEART / MEDIASTINUM: No significant abnormality. LUNGS / PLEURA: No significant pulmonary or pleural abnormality. No pneum othorax. BONES: No significant osseous abnormality. ADDITIONAL FINDINGS: No significant additional findings. IMPRESSION: 1. No active cardiopulmonary disease. Signer Name: Wil Olsen II, MD Signed: 01/17/2022 3:21 AM Workstation Name: [id number] Transcribed By: MAREN Dictated By: WIL OLSEN II, MD Electronically Authenticated By: WIL OLSEN II, MD Signed Date/Time: 01/17/22320 DD/ 0 TD/TT: Print Cancel - Medical Decision Making This patient presents with chest pain that is very unlikely angina or acute coronary syndrome. The emergency department evaluation has not identified any ca use for suspicion that this chest pain has a cardiac etiology. Based on their history, EKG (which showed no evidence of ischemia or infarction) and imaging, in addition to the patient's physical exam, I see no evidence at this time for a malignant etiology for the patient's chest pain. There is no acute evidence for pulmonary embolus, acute myocardial infarction, pneumothorax, Boerhaeve syndrome, cardiac tamponade, thoracic artery dissection, or any other emergent cardiac, pulmonary or aortic pathology. Given the low pre-test probability for cardiac etiology of chest pain and the absence of any sign of ischemia or infarction, discharge for outpatient follow-up and further evaluation is reaso nable. I have explained to the patient that even though a cardiac problem is very unlikely, follow-up and further testing is required to reduce further the already small uncertainty that exists. Other life-threatening diagnoses have been considered. The patient understands the need to return immediately if their symptoms worsen or they develop any new symptoms, and not to engage in any significant exertional activity until follow-up is obtained. Critical care attestation.: If time is entered above; I have spent that time in minutes in the direct care of this critically ill patient, excluding procedure time. ED Disposition Clinical Impression: Chest pain Clinical Impression: (Ruled Out): Intractable abdominal pain Disposition: HOME / SELF CARE / HOMELESS Is pt being admited?: No Does the pt Need Aspirin: No Condition: Stable Instructions: Nonspecific Chest Pain, Adult, Costochondritis Additional Instructions: Please member to be checked for obstructive sleep apnea with your primary care provider to refrain from sleeping on your back and sleep unusual on your side or on the abdomen Referrals: BOUCHRA ISIDRO MD [Staff Physician] - 3-5 Days PRIMARY CARE, [Primary Care Provider] - 3-5 Days Forms: Work/School Release Form(ED)
--- NOTE | 2022-01-17 14:29 | Electrocardiograph Report ---
[facility] Test Date: 2022-01-17 Test Time: 02:44:35 Pat Name: January Department: Room: Gender: F [place] Representative: MADDIE : 1980 Requested By: KRISTY ANTUNEZ Order Number: [id number] Reading MD: Vasile Thompson Measurements Intervals [place] Rate: 73 P: 62 [place]: 150 QRS: 57 QRSD: 70 T: 44 QT: 360 QTc: 397 Interpretive Statements Sinus rhythm Low voltage, precordial leads Compared to ECG 11/18/2021 22:51:30 Sinus rate has slowed Electronically Signed On 01-17-2022 14:29:38 EDT by Vasile Thompson
== END 2022-01-17 06:51 | disposition home or self-care (01) ==
LOC: ED 02:25
DX: R07.9 Chest pain, unspecified (principal); J45.909 Unspecified asthma, uncomplicated; Z90.49 Acquired absence of other specified parts of digestive tract
CPT/HCPCS: 36415; 71046; 80053; 81001; 82962; 84484; 85025; 93005; 96372; 99284; J2060

== ENCOUNTER 2022-04-11 21:52 | Emergency (ER) | payer SELFPAY ==
[2022-04-11 23:51] LABS: Bilirubin,Urine NEG (Negative); Blood,Urine LG (Negative); Color,Urine Yellow (Yellow); Urobilinogen,Urine < 2.0 mg/dL (<2.0)
[2022-04-11 23:58] LABS: Bacteria,Urine 1+ /HPF (Negative); Mucus,Urine 2+ /HPF
[2022-04-12 00:18] LABS: Basophils % (Auto) 0.2 % (0.0-1.8); Eosinophils # (Auto) 0.1 K/mm3 (0.0-0.4); Eosinophils % (Auto) 1.1 % (0.0-4.3); Hematocrit 40.7 % (30.3-42.9); Hemoglobin 13.7 gm/dl (10.1-14.3); Mean Corpuscular HGB Conc 34 % (30-34); Mean Corpuscular Volume 98 fl (79-97); Monocytes # (Auto) 0.7 K/mm3 (0.0-0.8); Monocytes % (Auto) 8.6 % (0.0-7.3); Platelet Count 183 K/mm3 (140-440); Red Blood Count 4.16 M/mm3 (3.65-5.03); Red Cell Distribution Width 13.8 % (13.2-15.2)
[2022-04-12 00:24] LABS: Alanine Aminotransferase 40 units/L (7-56); Albumin 4.2 g/dL (3.9-5); BUN/Creatinine Ratio 25; Blood Urea Nitrogen 25 mg/dL (7-17); Calcium 9.3 mg/dL (8.4-10.2); Hemolysis Index 5
[2022-04-12] MEDS ORDERED: diphenhydrAMINE 50 MG/ML VIAL IV ONE (08:36)
[2022-04-12] MEDS ORDERED: SODIUM CHLORIDE 0.9% 1000 ML 1,000 ML IV ONE (08:36)
[2022-04-12] MEDS ORDERED: METOCLOPRAMIDE 10 MG/2 ML INJ IV ONE (08:36)
[2022-04-12] MEDS ORDERED: DICYCLOMINE 20 MG TAB PO ONE (08:36)
[2022-04-12] MEDS ORDERED: FAMOTIDINE 20 MG/2 ML INJ IV ONE (08:36)
[2022-04-12 08:42] VITALS: BP 127/74
--- NOTE | 2022-04-12 09:14 | Emergency Department Report ---
ED Abdominal Pain HPI - General Chief Complaint: Abdominal Pain Stated Complaint: ABD PAIN/SOB Time Seen by Provider: 04/12/22 08:23 Source: patient Mode of arrival: Ambulatory Limitations: No Limitations - History of Present Illness Initial Comments: This is a 42-year-old female nontoxic, well nourished in appearance, no acute signs of distress presents to the ED with c/o of nausea and vomiting and abdominal pain several days. Patient describes vomiting as food content and yellow gastric acid. Patient describes abdominal pain as cramping and aching with level of 7/10 diffuse. Patient denies chest pain, short of breath, fever, hemoptysis, blood in stool, chills, headache, stiff neck, numbness or tingling. Patient denies any diarrhea or constipation. Denies any blood in stool. Patient denies any recent travels. Patient stated allergies to ketorolac and tromethamine. Patient stated she is on her menstrual cycle today. MD Complaint: abdominal pain -: days(s) Location: diffuse Radiation: none Migration to: no migration Severity scale (0 -10): 7 Quality: cramping, aching Consistency: constant Improves With: nothing Worsens With: nothing Associated Symptoms: nausea, vomiting. denies: diarrhea, fever, chills, constipation, dysuria, hematemesis, hematochezia, melena, hematuria, anorexia, syncope - Related Data Home Medications Medication Instructions Recorded Confirmed Last Taken Gabapentin 800 mg PO BID 04/12/22 04/12/22 1 Day Ago ~04/11/22 Previous Rx's Medication Instructions Recorded Last Taken Type Ondansetron [Zofran Odt] 4 mg PO Q8HR PRN #12 tab.rapdis 04/12/22 Unknown Rx cephALEXin [Keflex] 500 mg PO Q8HR #21 cap 04/12/22 Unknown Rx Allergies Allergy/AdvReac Type Severity Reaction Status Date / Time ketorolac tromethamine Allergy Rash Verified 04/12/22 08:29 [From Toradol] ED Review of Systems ROS: Stated complaint: ABD PAIN/SOB Other details as noted in HPI Constitutional: denies: chills, fever Eyes: denies: eye pain, eye discharge, vision change ENT: denies: ear pain, throat pain Respiratory: denies: cough, shortness of breath, wheezing Cardiovascular: denies: chest pain, palpitations Endocrine: no symptoms reported Gastrointestinal: abdominal pain, nausea, vomiting. denies: diarrhea, constipation, hematemesis, melena, hematochezia Genitourinary: denies: urgency, dysuria, discharge Musculoskeletal: denies: back pain, joint swelling, arthralgia Skin: denies: rash, lesions Neurological: denies: headache, weakness, paresthesias Psychiatric: denies: anxiety, depression Hematological/Lymphatic: denies: easy bleeding, easy bruising ED Past Medical Hx - Past Medical History Hx Hypertension: No (reports BP usually "runs low") Hx Heart Attack/AMI: No Hx GERD: Yes Hx Liver Disease: No Hx Renal Disease: No Hx Seizures: Yes (has had seziures associated with EtOH withdrawal) Hx Kidney Stones: Yes Hx Asthma: Yes (albuterol 2x/wk) Hx Tuberculosis: No Hx HIV: No Additional medical history: Pancreatitis, cyst on right ovary, Vaginal delivery x 2. Gall bladder disease - Surgical History Hx Cholecystectomy: Yes Additional Surgical History: tubaligation - Social History Smoking Status: Never Smoker Substance Use Type: None - Medications Home Medications: Home Medications Medication Instructions Recorded Confirmed Last Taken Type Gabapentin 800 mg PO BID 04/12/22 04/12/22 1 Day Ago History ~04/11/22 Ondansetron [Zofran Odt] 4 mg PO Q8HR PRN #12 tab.rapdis 04/12/22 Unknown Rx cephALEXin [Keflex] 500 mg PO Q8HR #21 cap 04/12/22 Unknown Rx ED Physical Exam - General Limitations: No Limitations General appearance: alert, in no apparent distress - Head Head exam: Present: atraumatic, normocephalic - Eye Eye exam: Present: normal appearance - Neck Neck exam: Present: normal inspection, full ROM. Absent: tenderness, meningismus, lymphadenopathy - Respiratory Respiratory exam: Present: normal lung sounds bilaterally. Absent: respiratory distress, wheezes, rales, rhonchi, stridor, chest wall tenderness, accessory muscle use, decreased breath sounds, prolonged expiratory - Cardiovascular Cardiovascular Exam: Present: regular rate, normal rhythm, normal heart sounds. Absent: bradycardia, tachycardia, irregular rhythm, systolic murmur, diastolic murmur, rubs, gallop - GI/Abdominal GI/Abdominal exam: Present: soft, tenderness (diffuse), normal bowel sounds. Absent: distended, guarding, rebound, rigid, diminished bowel sounds - Extremities Exam Extremities exam: Present: full ROM - Back Exam Back exam: Present: normal inspection, full ROM. Absent: tenderness, CVA tenderness (R), CVA tenderness (L), muscle spasm, paraspinal tenderness, vertebral tenderness, rash noted - Neurological Exam Neurological exam: Present: alert, oriented X3, normal gait - Psychiatric Psychiatric exam: Present: normal affect, normal mood - Skin Skin exam: Present: warm, dry, intact, normal color. Absent: rash ED Course Vital Signs 04/11/22 04/12/22 22:21 08:41 Temperature 98.3 F 98.3 F Pulse Rate 95 H 69 Respiratory 18 18 Rate Blood Pressure 129/102 Blood Pressure 127/74 [Right] O2 Sat by Pulse 96 97 Oximetry - Reevaluation(s) Reevaluation #1: 04/12/22 09:15 Patient is speaking in full sentences with no signs of distress noted. ED Medical Decision Making - Lab Data Result diagrams: 04/11/22 23:35 04/11/22 23:35 Lab Results 04/11/22 04/11/22 04/11/22 Range/Units 23:35 23:35 23:35 WBC 8.3 (4.5-11.0) K/mm3 RBC 4.16 (3.65-5.03) M/mm3 Hgb 13.7 (10.1-14.3) gm/dl Hct 40.7 (30.3-42.9) % MCV 98 H (79-97) fl MCH 33 H (28-32) pg MCHC 34 (30-34) % RDW 13.8 (13.2-15.2) % Plt Count 183 (140-440) K/mm3 Lymph % (Auto) 36.0 H (13.4-35.0) % Monona % (Auto) 8.6 H (0.0-7.3) % Eos % (Auto) 1.1 (0.0-4.3) % Baso % (Auto) 0.2 (0.0-1.8) % Lymph # (Auto) 3.0 (1.2-5.4) K/mm3 Monona # (Auto) 0.7 (0.0-0.8) K/mm3 Eos # (Auto) 0.1 (0.0-0.4) K/mm3 Baso # (Auto) 0.0 (0.0-0.1) K/mm3 Seg Neutrophils % 54.1 (40.0-70.0) % Seg Neutrophils # 4.5 (1.8-7.7) K/mm3 Sodium 139 (137-145) mmol/L Potassium 4.0 (3.6-5.0) mmol/L Chloride 102.7 (98-107) mmol/L Carbon Dioxide 28 (22-30) mmol/L Anion Gap 12 mmol/L BUN 25 H (7-17) mg/dL Creatinine 1.0 (0.6-1.2) mg/dL Estimated GFR > 60 ml/min BUN/Creatinine Ratio 25 % Glucose 107 H (65-100) mg/dL Calcium 9.3 (8.4-10.2) mg/dL Total Bilirubin 0.20 (0.1-1.2) mg/dL AST 27 (5-40) units/L ALT 40 (7-56) units/L Alkaline Phosphatase 65 (35-129) units/L Total Protein 7.0 (6.3-8.2) g/dL Albumin 4.2 (3.9-5) g/dL Albumin/Globulin Ratio 1.5 % Lipase (13-60) units/L HCG, Qual Negative (Negative) Urine Color (Yellow) Urine Turbidity (Clear) Urine pH (5.0-7.0) Ur Specific Gilbert (1.003-1.030) Urine Protein (Negative) mg/dL Urine Glucose (UA) (Negative) mg/dL Urine Ketones (Negative) mg/dL Urine Blood (Negative) Urine Nitrite (Negative) Urine Bilirubin (Negative) Urine Urobilinogen (<2.0) mg/dL Ur Leukocyte Esterase (Negative) Urine WBC (Auto) (0.0-6.0) /HPF Urine RBC (Auto) (0.0-6.0) /HPF U Epithel Cells (Auto) (0-13.0) /HPF Urine Bacteria (Auto) (Negative) /HPF Urine Mucus /HPF Urine Yeast (Budding) /HPF 04/11/22 04/12/22 Range/Units Unknown Unknown WBC (4.5-11.0) K/mm3 RBC (3.65-5.03) M/mm3 Hgb (10.1-14.3) gm/dl Hct (30.3-42.9) % MCV (79-97) fl MCH (28-32) pg MCHC (30-34) % RDW (13.2-15.2) % Plt Count (140-440) K/mm3 Lymph % (Auto) (13.4-35.0) % Monona % (Auto) (0.0-7.3) % Eos % (Auto) (0.0-4.3) % Baso % (Auto) (0.0-1.8) % Lymph # (Auto) (1.2-5.4) K/mm3 Monona # (Auto) (0.0-0.8) K/mm3 Eos # (Auto) (0.0-0.4) K/mm3 Baso # (Auto) (0.0-0.1) K/mm3 Seg Neutrophils % (40.0-70.0) % Seg Neutrophils # (1.8-7.7) K/mm3 Sodium (137-145) mmol/L Potassium (3.6-5.0) mmol/L Chloride (98-107) mmol/L Carbon Dioxide (22-30) mmol/L Anion Gap mmol/L BUN (7-17) mg/dL Creatinine (0.6-1.2) mg/dL Estimated GFR ml/min BUN/Creatinine Ratio % Glucose (65-100) mg/dL Calcium (8.4-10.2) mg/dL Total Bilirubin (0.1-1.2) mg/dL AST (5-40) units/L ALT (7-56) units/L Alkaline Phosphatase (35-129) units/L Total Protein (6.3-8.2) g/dL Albumin (3.9-5) g/dL Albumin/Globulin Ratio % Lipase 25 (13-60) units/L HCG, Qual (Negative) Urine Color Yellow (Yellow) Urine Turbidity Slightly-cloudy (Clear) Urine pH 5.0 (5.0-7.0) Ur Specific Gilbert 1.032 H (1.003-1.030) Urine Protein 100 mg/dl (Negative) mg/dL Urine Glucose (UA) Neg (Negative) mg/dL Urine Ketones Neg (Negative) mg/dL Urine Blood Lg (Negative) Urine Nitrite Neg (Negative) Urine Bilirubin Neg (Negative) Urine Urobilinogen < 2.0 (<2.0) mg/dL Ur Leukocyte Esterase Sm (Negative) Urine WBC (Auto) 11.0 H (0.0-6.0) /HPF Urine RBC (Auto) 78.0 (0.0-6.0) /HPF U Epithel Cells (Auto) 28.0 H (0-13.0) /HPF Urine Bacteria (Auto) 1+ (Negative) /HPF Urine Mucus 2+ /HPF Urine Yeast (Budding) 1+ /HPF - Radiology Data [facility] [address] [place] [address] Cat Scan Report Signed Patient: JANIYA TORRES MR#: [id number] : 1980 Acct:[id number] Age/Sex: 42 / F ADM Date: 04/11/22 Loc: ED Attending Dr: Ordering Physician: DORETHA COLON NP Date of Service: 04/12/22 Procedure(s): CT abdomen pelvis w con Accession Number(s): [id number] cc: DORETHA COLON NP CT ABDOMEN AND PELVIS WITH CONTRAST HISTORY: abd pain w n.v COMPARISON: Prior CT on 11/18/2021 TECHNIQUE: Routine abdominal and pelvic CT exam performed following intravenous contrast administration.. All CT scans at this location are performed using CT dose reduction for ALARA by means of automated exposure control. FINDINGS: CT ABDOMEN: Lung Bases: No significant abnormality. Liver: No significant abnormality. Biliary: Gallbladder is surgically absent. Spleen: No significant abnormality. Unenlarged. Pancreas: No significant abnormality. Adrenals: No significant abnormality. Kidneys: No significant abnormality. Lymphatics: No lymphadenopathy. Vasculature: No significant abnormality. Bowel/Peritoneum: No significant abnormality. No free air. No free fluid. Normal appendix. CT PELVIC: : No significant abnormality. Lymphatics: No lymphadenopathy. Osseous Structures: No aggressive appearing osseous lesions. Additional Findings: None IMPRESSION: 1. No acute findings or adverse change from previous exams. Signer Name: Quintin Thornton MD Signed: 04/12/2022 11:42 AM Workstation Name: [id number] Transcribed By: MARTINEZ Dictated By: Quintin Thornton MD Electronically Authenticated By: Quintin Thornton MD Signed Date/Time: 04/12/22 1142 DD/ 1141 TD/TT: - Medical Decision Making This is a 42-year-old female that presents with abdominal pain, n/v, and UTI. Patient is stable and was examined by me. Labs obtained. UA obtained. CT of abdomen obtained and dictated by the radiologist. Patient is notified of the report with no questions noted by the patient. Vital signs are stable prior to discharge. Patient received medical treatment in the ED which patient stated symptoms has resovled and subsided. Was instructed note to operate any machinery due to possible drowsiness and stated someone will drive the patient home. A by mouth challenge has been obtained and patient tolerated well with no nausea vomiting. Patient was also instructed to Follow-up with a primary care doctor in 3-5 days or if symptoms worsen and continue return to emergency room as soon as possible. At time of discharge, the patient does not seem toxic or ill in appearance. No acute signs of distress noted. Patient agrees to discharge treatment plan of care. No further questions noted by the patient. Critical care attestation.: If time is entered above; I have spent that time in minutes in the direct care of this critically ill patient, excluding procedure time. ED Disposition Clinical Impression: Abdominal pain Qualifiers: Abdominal location: unspecified location Qualified Code(s): R10.9 - Unspecified abdominal pain Nausea & vomiting Qualifiers: Vomiting type: unspecified Qualified Code(s): R11.2 - Nausea with vomiting, unspecified UTI (urinary tract infection) Qualifiers: Urinary tract infection type: acute cystitis Hematuria presence: with hematuria Qualified Code(s): N30.01 - Acute cystitis with hematuria Disposition: HOME / SELF CARE / HOMELESS Is pt being admited?: No Does the pt Need Aspirin: No Condition: Stable Instructions: Abdominal Pain (ED), Nausea and Vomiting, Adult, [id number], Urinary Tract Infection, Adult, Abdominal Pain, Adult Additional Instructions: Follow-up with a primary care doctor in 3-5 days or if symptoms worsen and continue return to emergency room as soon as possible. Prescriptions: cephALEXin [Keflex] 500 mg PO Q8HR #21 cap Ondansetron [Zofran Odt] 4 mg PO Q8HR PRN #12 tab.rapdis PRN Reason: Nausea Referrals: [facility] GONZALES MD [Primary Care Provider] - 3-5 Days PRIMARY CAREMD [Referring] - 3-5 Days Time of Disposition: 11:49
--- NOTE | 2022-04-12 11:46 | Cat Scan Report ---
CT ABDOMEN AND PELVIS WITH CONTRAST HISTORY: abd pain w n.v COMPARISON: Prior CT on 11/18/2021 TECHNIQUE: Routine abdominal and pelvic CT exam performed following intravenous contrast administrat ion.. All CT scans at this location are performed using CT dose reduction for ALARA by means of autom ated exposure control. FINDINGS: CT ABDOMEN: Lung Bases: No significant abnormality. Liver: No significant abnormality. Biliary: Gallbladder is surgically absent. Spleen: No significant abnormality. Unenlarged. Pancreas: No significant abnormality. Adrenals: No significant abnormality. Kidneys: No significant abnormality. Lymphatics: No lymphadenopathy. Vasculature: No significant abnormality. Bowel/Peritoneum: No significant abnormality. No free air. No free fluid. Normal appendix. CT PELVIC: : No significant abnormality. Lymphatics: No lymphadenopathy. Osseous Structures: No aggressive appearing osseous lesions. Additional Findings: None IMPRESSION: 1. No acute findings or adverse change from previous exams. Signer Name: Quintin Thornton MD Signed: 04/12/2022 11:42 AM Workstation Name: [id number]
== END 2022-04-12 12:12 | disposition home or self-care (01) ==
LOC: ED 21:52
DX: R10.9 Unspecified abdominal pain (principal); R11.2 Nausea with vomiting, unspecified; N39.0 Urinary tract infection, site not specified
CPT/HCPCS: 36415; 74177; 80053; 81001; 83690; 84703; 85025; 87086; 96361; 96374; 96375; 99284; J1200; J2765; J3490; J7030; Q9967